=== PATIENT | female | born 1935 | race Caucasian/White ===

== ENCOUNTER → 2016-11-19 | Outpatient (REF) | payer MEDICARE ==
[~2016-11-19] MED LIST: ATEN50TA2 PO; CELE10TA PO; DEPA500T2 PO; FOSA70TA PO; MULTTAB4 PO; TYLE325T5 PO; VIMP150T PO; VITA500046 PO
== END ==
LOC: M LAB REF 15:46
PROVIDERS: ATTEND Nurse Practitioner Adult Health
DX: R19.7 Diarrhea, unspecified (principal)

== ENCOUNTER 2016-12-14 09:58 | Emergency (ER) | payer MEDICARE ==
[2016-12-14 11:57] LABS: BASO % 0.6 % (0.0-1.0); EOS # 0.2 K/mm3 (0.0-0.50); EOS % 3.7 % (0.0-3.0); LARGE UNSTAINED CELL # 0.1 K/mm3 (0.0-0.4); LARGE UNSTAINED CELL % 2.2 % (0.0-4.0); LYMPH % 33.9 % (24.0-44.0); MEAN CORPUSCULAR HEMOGLOBIN 31.7 pg (27.0-33.0); MEAN CORPUSCULAR HGB CONC 32.3 g/dl (32.0-36.5); MONO # 0.4 K/mm3 (0.0-0.8); NEUTROPHILS # 2.8 K/mm3 (1.8-7.7); NEUTROPHILS % 51.7 % (36.0-66.0); PLATELET COUNT, AUTOMATED 195 k/mm3 (150-450); RED CELL DISTRIBUTION WIDTH 12.5 % (11.5-14.5); WHITE BLOOD COUNT 5.4 K/mm3 (4.0-10.0)
[2016-12-14 12:11] LABS: CREATININE FOR GFR 1.06 MG/DL (0.55-1.02); GLOMERULAR FILTRATION RATE 52.7 (>32)
[2016-12-14 12:14] LABS: INR 1.01
[2016-12-14 12:22] LABS: MICROSCOPIC INDICATED? MAN YES (NO)
[2016-12-14 12:24] LABS: BACTERIA, URINE LARGE AMOUNT; HYALINE CAST, URINE NONE SEEN /lpf (0-1); MICROSCOPIC EXAM PERFORMED; RBC, URINE TNTC /hpf (0-3); SQUAMOUS EPITHELIAL CELL URINE NONE SEEN /hpf (SMALL AMT); WBC, URINE 30-40 /hpf (0-3)
--- NOTE | 2016-12-14 13:00 | REP ---
CT ABDOMEN AND PELVIS WITHOUT IV CONTRAST: CT abdomen and pelvis is performed. No oral or IV contrast is utilized. Visualized lung bases demonstrate interstitial fibrotic change. Liver, spleen, adrenals, pancreas, and kidneys are grossly unremarkable in appearance. Patient has had a cholecystectomy. There is no significant biliary dilatation identified. There are moderate atherosclerotic calcifications of the abdominal aorta without aneurysm. I see no adenopathy. I see no free air or free fluid. I see no bowel wall thickening. There is extensive sigmoid diverticulosis without evidence of acute diverticulitis. I see no pelvic mass. Urinary bladder is mildly distended and grossly unremarkable. There does appear to be a calculus in the distal end of the left ureter measuring 6 mm in diameter. There is no left hydroureteronephrosis. There is a small hiatal hernia. IMPRESSION: There is a 6 mm calculus in the distal end of the left ureter without significant left-sided hydroureteronephrosis. No other renal or ureteral stones are seen. Sigmoid diverticulosis without evidence of acute diverticulitis. Small hiatal hernia. Signed by Bob Gayle MD 12/14/2016 02:20 P
--- NOTE | 2016-12-14 14:16 | EDDOCDS ---
Nurse's Notes [facility] Name: Mariya Gomez Age: 81 yrs Sex: Female : 1935 Arrival Date: 12/14/2016 Time: 09:58 Bed I3 / M3 Private MD: Yannick Enamorado MD Diagnosis: Calculus in urethra-6 mm left Presentation: 12/14 10:09 Presenting complaint: Patient states: Pt presents with bright red blood in urine onset dls yesterday denies any abdominal or flank pain. Adult Sepsis Screening: The patient does not have new or worsening altered mentation. Patient's respiratory rate is less than 22. Systolic blood pressure is greater than 100. Patient has a qSOFA score of 0- Negative Sepsis Screen. Suicide/Homicide risk assessment- the patient denies having any suicidal and/or homicidal ideations and does not present with any other emotional, behavioral or mental health complaints. Status: Patient is not a environmental service aide or dependent. Transition of care: patient was not received from another setting of care. 10:09 Acuity: VI Level 3 dls 10:09 Method Of Arrival: Walkin/Carried/Asstd dls Triage Assessment: 10:12 General: Appears in no apparent distress, well developed, well nourished, well groomed, dls Behavior is cooperative. Pain: Denies pain. Historical: - Allergies: no known allergies; - Home Meds: 1. Drisdol 50,000 unit Oral cap 1 cap once wkly Wednesdays 2. Keppra 1,000 mg Oral tab 1 tab every 12 hours 3. Xanax 0.5 mg Oral tab 1 tab 3 times per day as needed - PMHx: Encephalitis; Hypertension; Seizures; kidney stones; compression fractures; - PSHx: Cholecystectomy; urinary stents; - Social history: Smoking status: Patient/guardian denies using No barriers to communication noted, The patient speaks fluent [place]ican. - Family history: Not pertinent. - : The pt / caregiver states he / she is not on anticoagulants. Home medication list is obtained from the patient. - Exposure Risk Screening:: None identified. Screenin:14 Screening information is obtained from the patient. Fall risk: No risks identified. dsf Assistance ADL's: requires no assistance with activities of daily living. Abuse/DV Screen: The patient / caregiver reports he/she is: not in a situation that causes fear, pain or injury. Nutritional screening: No deficits noted. Advance Directives: Currently, there is no health care proxy. home support is adequate. Assessment: 11:40 Adult Sepsis Screening: The patient does not have new or worsening altered mentation. dsf Patient's respiratory rate is less than 22. Systolic blood pressure is greater than 100. Patient has a qSOFA score of 0- Negative Sepsis Screen. General: Appears in no apparent distress, comfortable, Behavior is appropriate for age, cooperative. Pain: Denies pain. Neurological: Level of Consciousness is awake, alert, Oriented to person, place, time. Cardiovascular: Capillary refill < 3 seconds. Respiratory: Airway is patent Respiratory effort is even, unlabored, Respiratory pattern is regular, symmetrical. : Urine is maroon colored urine Denies burning with urination, urinary frequency, urgency. Derm: Skin is pink, warm & dry. 13:02 General: Appears in no apparent distress, comfortable, Behavior is appropriate for age, dsf cooperative. Pain: Denies pain. Neurological: Level of Consciousness is awake, alert. Cardiovascular: Capillary refill < 3 seconds. Respiratory: Airway is patent Respiratory effort is even, unlabored, Respiratory pattern is regular, symmetrical. Derm: Skin is pink, warm & dry. 14:14 Adult Sepsis Screening: The patient does not have new or worsening altered mentation. dsf Patient's respiratory rate is less than 22. Systolic blood pressure is greater than 100. Patient has a qSOFA score of 0- Negative Sepsis Screen. General: Appears in no apparent distress, comfortable, Behavior is appropriate for age, cooperative. Pain: Denies pain. Neurological: Level of Consciousness is awake, alert. Cardiovascular: Capillary refill < 3 seconds. Respiratory: Airway is patent Respiratory effort is even, unlabored, labored, Respiratory pattern is regular, symmetrical. Derm: Skin is pink, warm & dry. Vital Signs: 10:01 BP 106 / 60; Pulse 82; Resp 18; Temp 97.5(O); Pulse Ox 97% on R/A; Weight 70.31 kg (R); ct3 Height 5 ft. 3 in. (160.02 cm) (R); Pain 0/10; 14:14 BP 159 / 77; Pulse 78; Resp 18; Temp 96.3; Pulse Ox 97% ; Pain 0/10; jam1 10:01 Body Mass Index 27.46 (70.31 kg, 160.02 cm) ct3 Vitals: 10:01 Log In Time: December 14, 2016 at 09:58. ct3 ED Course: 10:00 Patient visited by Paula Lynn PCA. ct3 10:00 Yannick Enamorado is Private Physician. ct3 10:00 Patient moved to Waiting ct3 10:02 Patient moved to Pre RCE ct3 10:10 Triage Initiated dls 11:11 Patient moved to Triage 3 kcs 11:17 Ronnell Bacon PA-C is PHCP. cc10 11:18 Luisa Culp MD is Attending Physician. cc10 11:18 Patient visited by Ronnell Bacon PA-C. cc10 11:18 Patient visited by Ronnell Bacon PA-C. cc10 11:33 Ileana Schaefer,RN is Primary Nurse. kcs 11:33 Radha Rivera, JARON is Primary Nurse. kcs 11:33 Patient moved to I3 / M3 kcs 11:[address] dsf 11:47 Pt & Aptt Sent. dsf 11:47 Basic Metabolic Profile Sent. dsf 11:47 CBC with Diff Sent. dsf 11:47 Urine Culture Sent. dsf 11:47 Inserted saline lock: 20 gauge in left antecubital area The patient tolerated the dsf procedure well. 11:49 Patient visited by Maegan De La Cruz RN. dsf 11:55 Patient moved to I3 / M3 krp 12:26 [facility] Payment Agreement was scanned into [employer] and attached to record. lg 13:03 Patient visited by Maegan De La Cruz RN. dsf 13:17 CT ABD & PELVIS: No Contrast Returned. EDMS 14:08 Stephon Franklin is Referral Physician. cc10 14:13 Discontinued lock intact, bleeding controlled, pressure dressing applied, No dsf redness/swelling at site. 14:14 The patient / caregiver is instructed regarding the plan of care and ED course. dsf 14:14 No procedures done that require assistance. dsf Order Results: Lab Order: Basic Metabolic Profile; SPEC'M 12/14/16 11:43 Test: GLUCOSE, FASTING; Value: 93; Range: 83-110; Units: MG/DL; Status: F Test: BLOOD UREA NITROGEN; Value: 19; Range: 7-18; Abnormal: Above high normal; Units: MG/DL; Status: F Test: CREATININE FOR GFR; Value: 1.06; Range: 0.55-1.02; Abnormal: Above high normal; Units: MG/DL; Status: F Test: GLOMERULAR FILTRATION RATE; Value: 52.7; Range: >32; Status: F Test: SODIUM LEVEL; Value: 143; Range: 136-145; Units: MEQ/L; Status: F Test: POTASSIUM SERUM; Value: 4.0; Range: 3.5-5.1; Units: MEQ/L; Status: F Test: CHLORIDE LEVEL; Value: 106; Range: 98-107; Units: MEQ/L; Status: F Test: CARBON DIOXIDE LEVEL; Value: 24; Range: 21-32; Units: MEQ/L; Status: F Test: ANION GAP; Value: 13; Range: 8-16; Units: MEQ/L; Status: F Test: CALCIUM LEVEL; Value: 9.0; Range: 8.8-10.2; Units: MG/DL; Status: F Test Note: ; Units are mL/min/1.73 m2 Chronic Kidney Disease Staging per NKF: Stage I & II GFR >=60 Normal to Mildly Decreased Stage III GFR 30-59 Moderately Decreased Stage IV GFR 15-29 Severely Decreased Stage V GFR <15 Very Little GFR Left ESRD GFR <15 on HEADING MAKER Lab Order: CBC with Diff; SPEC'M 12/14/16 11:43 Test: WHITE BLOOD COUNT; Value: 5.4; Range: 4.0-10.0; Units: K/mm3; Status: F Test: RED BLOOD COUNT; Value: 4.13; Range: 4.00-5.40; Units: M/mm3; Status: F Test: HEMOGLOBIN; Value: 13.1; Range: 12.0-16.0; Units: g/dl; Status: F Test: HEMATOCRIT; Value: 40.4; Range: 36.0-47.0; Units: %; Status: F Test: MEAN CORPUSCULAR VOLUME; Value: 98.0; Range: 80.0-96.0; Abnormal: Above high normal; Units: fl; Status: F Test: MEAN CORPUSCULAR HEMOGLOBIN; Value: 31.7; Range: 27.0-33.0; Units: pg; Status: F Test: MEAN CORPUSCULAR HGB CONC; Value: 32.3; Range: 32.0-36.5; Units: g/dl; Status: F Test: RED CELL DISTRIBUTION WIDTH; Value: 12.5; Range: 11.5-14.5; Units: %; Status: F Test: PLATELET COUNT, AUTOMATED; Value: 195; Range: 150-450; Units: k/mm3; Status: F Test: NEUTROPHILS %; Value: 51.7; Range: 36.0-66.0; Units: %; Status: F Test: LYMPH %; Value: 33.9; Range: 24.0-44.0; Units: %; Status: F Test: MONO %; Value: 8.0; Range: 0.0-5.0; Abnormal: Above high normal; Units: %; Status: F Test: EOS %; Value: 3.7; Range: 0.0-3.0; Abnormal: Above high normal; Units: %; Status: F Test: BASO %; Value: 0.6; Range: 0.0-1.0; Units: %; Status: F Test: LARGE UNSTAINED CELL %; Value: 2.2; Range: 0.0-4.0; Units: %; Status: F Test: NEUTROPHILS #; Value: 2.8; Range: 1.8-7.7; Units: K/mm3; Status: F Test: LYMPH #; Value: 2.0; Range: 1.5-4.5; Units: K/mm3; Status: F Test: MONO #; Value: 0.4; Range: 0.0-0.8; Units: K/mm3; Status: F Test: EOS #; Value: 0.2; Range: 0.0-0.50; Units: K/mm3; Status: F Test: BASO #; Value: 0.0; Range: 0.0-0.2; Units: K/mm3; Status: F Test: LARGE UNSTAINED CELL #; Value: 0.1; Range: 0.0-0.4; Units: K/mm3; Status: F Lab Order: Pt & Aptt; SPEC'M 12/14/16 11:43 Test: PROTHROMBIN TIME; Value: 13.4; Range: 12.3-14.5; Units: SECONDS; Status: F Test: INR; Value: 1.01; Status: F Test: PARTIAL THROMBOPLASTIN TIME; Value: 26.4; Range: 26.6-37.1; Abnormal: Below low normal; Units: SECONDS; Status: F Test Note: ; THERAPUTIC HUMAN INR VALUES INDICATIONS NORMAL RANGES PROPHYLAXIS/TREATMENT OF: VENOUS THROMBOSIS 2.0-3.0 PULMONARY EMBOLISM 2.0-3.0 PREVENTION OF SYSTEMIC EMBOLISM FROM: TISSUE HEART VALVES 2.0-3.0 ACUTE MYOCARDIAL INFARCTION 2.0-3.0 VALVULAR HEART DISEASE 2.0-3.0 ATRIAL FIBRILLATION 2.0-3.0 MECHANICAL VALVES(HIGH RISK) 2.5-3.5 RECURRENT MYOCARDIAL INFARCTION 2.5-3.5 Lab Order: URINALYSIS MANUAL; SPEC'M 12/14/16 11:43 Test: APPEARANCE, URINE MANUAL; Value: TURBID; Range: CLEAR; Abnormal: Above high normal; Status: F Test: COLOR, URINE MANUAL; Value: RED; Range: YELLOW; Abnormal: Above high normal; Status: F Test: PH,URINE MAN; Value: 5.0; Range: 5.0 - 9.0; Units: UNITS; Status: F Test: SPECIFIC GRAVITY,URINE MANUAL; Value: 1.020; Range: 1.002-1.035; Status: F Test: PROTEIN, URINE MANUAL; Value: 2+; Range: NEGATIVE; Abnormal: Above high normal; Units: mg/dL; Status: F Test: GLUCOSE, URINE (UA) MANUAL; Value: NEGATIVE; Range: NEGATIVE; Units: mg/dL; Status: F Test: KETONE, URINE MANUAL; Value: NEGATIVE; Range: NEGATIVE; Units: mg/dL; Status: F Test: UROBILINOGEN, URINE MANUAL; Value: NORMAL; Range: NORMAL; Units: mg/dl; Status: F Test: BILIRUBIN, URINE MANUAL; Value: NEGATIVE; Range: NEGATIVE; Status: F Test: NITRITE, URINE MANUAL; Value: NEGATIVE; Range: NEGATIVE; Status: F Test: LEUKOCYTE ESTERASE, URINE MAN; Value: POSITIVE; Range: NEGATIVE; Abnormal: Above high normal; Status: F Test: BLOOD URINE MANUAL; Value: POSITIVE; Range: NEGATIVE; Abnormal: Above high normal; Status: F Lab Order: MICROSCOPIC, URINE; SPEC'M 12/14/16 11:43 Test: WBC, URINE; Value: 30-40; Range: 0-3; Abnormal: Above high normal; Units: /hpf; Status: F Test: RBC, URINE; Value: TNTC; Range: 0-3; Abnormal: Above high normal; Units: /hpf; Status: F Test: SQUAMOUS EPITHELIAL CELL URINE; Value: NONE SEEN; Range: SMALL AMT; Units: /hpf; Status: F Test: BACTERIA, URINE; Value: LARGE AMOUNT; Range: NONE; Abnormal: Above high normal; Status: F Test: HYALINE CAST, URINE; Value: NONE SEEN; Range: 0-1; Units: /lpf; Status: F Test: MICROSCOPIC EXAM; Value: PERFORMED; Status: F Radiology Order: CT ABD & PELVIS: No Contrast Test: CT ABD & PELVIS: No Contrast REASON FOR EXAMINATION: Renal colic; ; CT ABDOMEN AND PELVIS WITHOUT IV CONTRAST:; ; CT abdomen and pelvis is performed. No oral or IV contrast is utilized.; ; Visualized lung bases demonstrate interstitial fibrotic change. Liver, spleen,; adrenals, pancreas, and kidneys are grossly unremarkable in appearance. Patient; has had a cholecystectomy. There is no significant biliary dilatation identified.; There are moderate atherosclerotic calcifications of the abdominal aorta without; aneurysm. I see no adenopathy. I see no free air or free fluid. I see no bowel; wall thickening. There is extensive sigmoid diverticulosis without evidence of; acute diverticulitis. I see no pelvic mass. Urinary bladder is mildly distended; and grossly unremarkable. There does appear to be a calculus in the distal end of; the left ureter measuring 6 mm in diameter. There is no left; hydroureteronephrosis. There is a small hiatal hernia.; ; IMPRESSION:; There is a 6 mm calculus in the distal end of the left ureter without significant; left-sided hydroureteronephrosis. No other renal or ureteral stones are seen.; Sigmoid diverticulosis without evidence of acute diverticulitis. Small hiatal; hernia.; ; ; ; Unreviewed; Outcome: 14:08 Discharge ordered by Provider. cc10 14:14 Discharge Assessment: Patient awake, alert and oriented x 3. No cognitive and/or dsf functional deficits noted. Patient verbalized understanding of disposition instructions. patient administered narcotics - no. The following High Risk Discharge criteria are identified: None. Discharged to home ambulatory. Condition: stable. Discharge instructions given to patient, Instructed on discharge instructions, follow up and referral plans. medication usage, Demonstrated understanding of instructions, medications, Pt was receptive of discharge instructions/ teaching. Prescriptions given X 2. CT Study completed. Property sent home with patient. 14:15 Patient left the ED. dsf Signatures: Dispatcher [employer] EDMS Heide Soares RN RN Leyla Ross RN RN Merlyn Cook, SENIOR INVESTIGATOR SENIOR INVESTIGATOR jam1 Jim Olguin krp Adonay Mckenzie, Reg Reg lg Lynn, Paula, SENIOR INVESTIGATOR SENIOR INVESTIGATOR ct3 Maegan De La Cruz RN RN dsf Ronnell Bacon, PA-C PA-C cc10 Corrections: (The following items were deleted from the chart) 12:21 11:47 URINALYSIS+LAB sent. [facility] EDMS MTDD
--- NOTE | 2016-12-14 14:16 | EDDOCDS ---
Physician Documentation [facility] Name: Mariya Gomez Age: 81 yrs Sex: Female : 1935 Arrival Date: 12/14/2016 Time: 09:58 Bed I3 / M3 Private MD: Yannick Enamorado MD Disposition: 12/14/16 14:08 Discharged to Home/Self Care. Impression: Calculus in urethra - 6 mm left. - Condition is Stable. - Discharge Instructions: Kidney Stones. - Prescriptions for Cipro 500 mg Oral Tablet - take 1 tablet by ORAL route every 12 hours; 14 tablet. Flomax 0.4 mg Oral Capsule, Sust. Release 24 hr - take 1 capsule by ORAL route once daily 1/2 hour following the same meal each day; 30 capsule. - Medication Reconciliation form. - Follow up: Stephon Franklin; When: 2 - 3 days; Reason: Wound/Symptom Recheck, Recheck today's complaints, Worsening of conditions, Continuance of care. - Problem is new. - Symptoms have improved. Historical: - Allergies: no known allergies; - Home Meds: 1. Drisdol 50,000 unit Oral cap 1 cap once wkly Wednesdays 2. Keppra 1,000 mg Oral tab 1 tab every 12 hours 3. Xanax 0.5 mg Oral tab 1 tab 3 times per day as needed - PMHx: Encephalitis; Hypertension; Seizures; kidney stones; compression fractures; - PSHx: Cholecystectomy; urinary stents; - Social history: Smoking status: Patient/guardian denies using No barriers to communication noted, The patient speaks fluent American. - Family history: Not pertinent. - : The pt / caregiver states he / she is not on anticoagulants. Home medication list is obtained from the patient. - Exposure Risk Screening:: None identified. Vital Signs: 12/14 10:01 BP 106 / 60; Pulse 82; Resp 18; Temp 97.5(O); Pulse Ox 97% on R/A; Weight 70.31 kg / ct3 155.01 lbs (R); Height 5 ft. 3 in. (160.02 cm) (R); Pain 0/10; 14:14 BP 159 / 77; Pulse 78; Resp 18; Temp 96.3; Pulse Ox 97% ; Pain 0/10; jam1 10:01 Body Mass Index 27.46 (70.31 kg, 160.02 cm) ct3 MDM: 11:27 IV Saline Lock ordered. cc10 11:27 Undress patient appropriately for examination ordered. cc10 11:28 CT ABD & PELVIS: No Contrast Ordered. EDMS 11:29 Basic Metabolic Profile Ordered. EDMS 11:29 CBC with Diff Ordered. EDMS 11:29 Pt & Aptt Ordered. EDMS 11:29 Urine Culture Ordered. EDMS 11:45 Financial registration complete. lg 12:22 URINALYSIS MANUAL Ordered. EDMS 12:23 MICROSCOPIC, URINE Ordered. EDMS 12:26 [facility] Payment Agreement was scanned into [employer] and attached to record. lg 12:56 Basic Metabolic Profile Reviewed. cc10 12:56 CBC with Diff Reviewed. cc10 12:56 Pt & Aptt Reviewed. cc10 12:56 URINALYSIS MANUAL Reviewed. cc10 12:56 MICROSCOPIC, URINE Reviewed. cc10 14:07 Misc. Nursing Order ordered. cc10 Signatures: Dispatcher [employer] EDVA Leyla Marcus, RN RN dls Adonay Mckenzie, Reg Reg lg Maegan De La Cruz,RN RN dsRonnell Rashid, PA-C PA-C cc10 The chart was reviewed and I authenticate all verbal orders and agree with the evaluation and treatment provided.Corrections: (The following items were deleted from the chart) 12:21 11:29 URINALYSIS+LAB ordered. EDVA EDMS Attachments: 12:26 [facility] Payment Agreement lg MTDD
--- NOTE | 2016-12-16 15:17 | EDDOCDS ---
Physician Documentation [facility] Name: Mariya Gomez Age: 81 yrs Sex: Female : 1935 Arrival Date: 12/14/2016 Time: 09:58 Bed I3 / M3 Private MD: Yannick Enamorado MD Disposition: 12/14/16 14:08 Discharged to Home/Self Care. Impression: Calculus in urethra - 6 mm left. - Condition is Stable. - Discharge Instructions: Kidney Stones. - Prescriptions for Cipro 500 mg Oral Tablet - take 1 tablet by ORAL route every 12 hours; 14 tablet. Flomax 0.4 mg Oral Capsule, Sust. Release 24 hr - take 1 capsule by ORAL route once daily 1/2 hour following the same meal each day; 30 capsule. - Medication Reconciliation form. - Follow up: Stephon Franklin; When: 2 - 3 days; Reason: Wound/Symptom Recheck, Recheck today's complaints, Worsening of conditions, Continuance of care. - Problem is new. - Symptoms have improved. Historical: - Allergies: no known allergies; - Home Meds: 1. Drisdol 50,000 unit Oral cap 1 cap once wkly Wednesdays 2. Keppra 1,000 mg Oral tab 1 tab every 12 hours 3. Xanax 0.5 mg Oral tab 1 tab 3 times per day as needed - PMHx: Encephalitis; Hypertension; Seizures; kidney stones; compression fractures; - PSHx: Cholecystectomy; urinary stents; - Social history: Smoking status: Patient/guardian denies using No barriers to communication noted, The patient speaks fluent Tanzanian. - Family history: Not pertinent. - : The pt / caregiver states he / she is not on anticoagulants. Home medication list is obtained from the patient. - Exposure Risk Screening:: None identified. Vital Signs: 12/14 10:01 BP 106 / 60; Pulse 82; Resp 18; Temp 97.5(O); Pulse Ox 97% on R/A; Weight 70.31 kg / ct3 155.01 lbs (R); Height 5 ft. 3 in. (160.02 cm) (R); Pain 0/10; 14:14 BP 159 / 77; Pulse 78; Resp 18; Temp 96.3; Pulse Ox 97% ; Pain 0/10; jam1 10:01 Body Mass Index 27.46 (70.31 kg, 160.02 cm) ct3 MDM: 11:27 IV Saline Lock ordered. cc10 11:27 Undress patient appropriately for examination ordered. cc10 11:28 CT ABD & PELVIS: No Contrast Ordered. EDMS 11:29 Basic Metabolic Profile Ordered. EDMS 11:29 CBC with Diff Ordered. EDMS 11:29 Pt & Aptt Ordered. EDMS 11:29 Urine Culture Ordered. EDMS 11:45 Financial registration complete. lg 12:22 URINALYSIS MANUAL Ordered. EDMS 12:23 MICROSCOPIC, URINE Ordered. EDMS 12:26 [facility] [place] Payment Agreement was scanned into [employer] and attached to record. lg 12:56 Basic Metabolic Profile Reviewed. cc10 12:56 CBC with Diff Reviewed. cc10 12:56 Pt & Aptt Reviewed. cc10 12:56 URINALYSIS MANUAL Reviewed. cc10 12:56 MICROSCOPIC, URINE Reviewed. cc10 14:07 Misc. Nursing Order ordered. cc10 12/15 12:27 T-Sheet-- Draft Copy was scanned into [employer] and attached to record. gb Signatures: Dispatcher [employer] Leyla Trevino, RN RN dls Delilah Johnson, Reg Reg gb Adonay Mckenzie, Reg Reg lg Maegan De La Cruz,RN Ronnell Duarte, PALeonie PAVikkiC cc10 The chart was reviewed and I authenticate all verbal orders and agree with the evaluation and treatment provided.Corrections: (The following items were deleted from the chart) 12/14 12:21 11:29 URINALYSIS+LAB ordered. EDOR EDMS Attachments: 12:26 [facility] [place] Payment Agreement lg 12/15 12:27 T-Sheet-- Draft Copy gb Chart Complete MTDD
--- NOTE | 2016-12-16 15:17 | EDDOCDS ---
Nurse's Notes [facility] Name: Mariya Gomez Age: 81 yrs Sex: Female : 1935 Arrival Date: 12/14/2016 Time: 09:58 Bed I3 / M3 Private MD: Yannick Enamorado MD Diagnosis: Calculus in urethra-6 mm left Presentation: 12/14 10:09 Presenting complaint: Patient states: Pt presents with bright red blood in urine onset dls yesterday denies any abdominal or flank pain. Adult Sepsis Screening: The patient does not have new or worsening altered mentation. Patient's respiratory rate is less than 22. Systolic blood pressure is greater than 100. Patient has a qSOFA score of 0- Negative Sepsis Screen. Suicide/Homicide risk assessment- the patient denies having any suicidal and/or homicidal ideations and does not present with any other emotional, behavioral or mental health complaints. Status: Patient is not a director of social services or dependent. Transition of care: patient was not received from another setting of care. 10:09 Acuity: VI Level 3 dls 10:09 Method Of Arrival: Walkin/Carried/Asstd dls Triage Assessment: 10:12 General: Appears in no apparent distress, well developed, well nourished, well groomed, dls Behavior is cooperative. Pain: Denies pain. Historical: - Allergies: no known allergies; - Home Meds: 1. Drisdol 50,000 unit Oral cap 1 cap once wkly Wednesdays 2. Keppra 1,000 mg Oral tab 1 tab every 12 hours 3. Xanax 0.5 mg Oral tab 1 tab 3 times per day as needed - PMHx: Encephalitis; Hypertension; Seizures; kidney stones; compression fractures; - PSHx: Cholecystectomy; urinary stents; - Social history: Smoking status: Patient/guardian denies using No barriers to communication noted, The patient speaks fluent Montserratian. - Family history: Not pertinent. - : The pt / caregiver states he / she is not on anticoagulants. Home medication list is obtained from the patient. - Exposure Risk Screening:: None identified. Screenin:14 Screening information is obtained from the patient. Fall risk: No risks identified. dsf Assistance ADL's: requires no assistance with activities of daily living. Abuse/DV Screen: The patient / caregiver reports he/she is: not in a situation that causes fear, pain or injury. Nutritional screening: No deficits noted. Advance Directives: Currently, there is no health care proxy. home support is adequate. Assessment: 11:40 Adult Sepsis Screening: The patient does not have new or worsening altered mentation. dsf Patient's respiratory rate is less than 22. Systolic blood pressure is greater than 100. Patient has a qSOFA score of 0- Negative Sepsis Screen. General: Appears in no apparent distress, comfortable, Behavior is appropriate for age, cooperative. Pain: Denies pain. Neurological: Level of Consciousness is awake, alert, Oriented to person, place, time. Cardiovascular: Capillary refill < 3 seconds. Respiratory: Airway is patent Respiratory effort is even, unlabored, Respiratory pattern is regular, symmetrical. : Urine is maroon colored urine Denies burning with urination, urinary frequency, urgency. Derm: Skin is pink, warm & dry. 13:02 General: Appears in no apparent distress, comfortable, Behavior is appropriate for age, dsf cooperative. Pain: Denies pain. Neurological: Level of Consciousness is awake, alert. Cardiovascular: Capillary refill < 3 seconds. Respiratory: Airway is patent Respiratory effort is even, unlabored, Respiratory pattern is regular, symmetrical. Derm: Skin is pink, warm & dry. 14:14 Adult Sepsis Screening: The patient does not have new or worsening altered mentation. dsf Patient's respiratory rate is less than 22. Systolic blood pressure is greater than 100. Patient has a qSOFA score of 0- Negative Sepsis Screen. General: Appears in no apparent distress, comfortable, Behavior is appropriate for age, cooperative. Pain: Denies pain. Neurological: Level of Consciousness is awake, alert. Cardiovascular: Capillary refill < 3 seconds. Respiratory: Airway is patent Respiratory effort is even, unlabored, labored, Respiratory pattern is regular, symmetrical. Derm: Skin is pink, warm & dry. Vital Signs: 10:01 BP 106 / 60; Pulse 82; Resp 18; Temp 97.5(O); Pulse Ox 97% on R/A; Weight 70.31 kg (R); ct3 Height 5 ft. 3 in. (160.02 cm) (R); Pain 0/10; 14:14 BP 159 / 77; Pulse 78; Resp 18; Temp 96.3; Pulse Ox 97% ; Pain 0/10; jam1 10:01 Body Mass Index 27.46 (70.31 kg, 160.02 cm) ct3 Vitals: 10:01 Log In Time: December 14, 2016 at 09:58. ct3 ED Course: 10:00 Patient visited by Paula Lynn PCA. ct3 10:00 Yannick Enamorado is Private Physician. ct3 10:00 Patient moved to Waiting ct3 10:02 Patient moved to Pre RCE ct3 10:10 Triage Initiated dls 11:11 Patient moved to Triage 3 kcs 11:17 Ronnell Bacon PA-C is PHCP. cc10 11:18 Luisa Culp MD is Attending Physician. cc10 11:18 Patient visited by Ronnell Bacon PA-C. cc10 11:18 Patient visited by Ronnell Bacon PA-C. cc10 11:33 Ileana Schaefer,RN is Primary Nurse. kcs 11:33 Radha Rivera, RN is Primary Nurse. kcs 11:33 Patient moved to I3 / M3 kcs 11:[address] dsf 11:47 Pt & Aptt Sent. dsf 11:47 Basic Metabolic Profile Sent. dsf 11:47 CBC with Diff Sent. dsf 11:47 Urine Culture Sent. dsf 11:47 Inserted saline lock: 20 gauge in left antecubital area The patient tolerated the dsf procedure well. 11:49 Patient visited by Maegan De La Cruz,JARON. dsf 11:55 Patient moved to I3 / M3 krp 12:26 [facility] Payment Agreement was scanned into [employer] and attached to record. lg 13:03 Patient visited by Maegan De La Cruz RN. dsf 13:17 CT ABD & PELVIS: No Contrast Returned. EDMS 14:08 Stephon Franklin is Referral Physician. cc10 14:13 Discontinued lock intact, bleeding controlled, pressure dressing applied, No dsf redness/swelling at site. 14:14 The patient / caregiver is instructed regarding the plan of care and ED course. dsf 14:14 No procedures done that require assistance. dsf 12/15 12:27 T-Sheet-- Draft Copy was scanned into [employer] and attached to record. gb Order Results: Lab Order: Basic Metabolic Profile; SPEC'M 12/14/16 11:43 Test: GLUCOSE, FASTING; Value: 93; Range: 83-110; Units: MG/DL; Status: F Test: BLOOD UREA NITROGEN; Value: 19; Range: 7-18; Abnormal: Above high normal; Units: MG/DL; Status: F Test: CREATININE FOR GFR; Value: 1.06; Range: 0.55-1.02; Abnormal: Above high normal; Units: MG/DL; Status: F Test: GLOMERULAR FILTRATION RATE; Value: 52.7; Range: >32; Status: F Test: SODIUM LEVEL; Value: 143; Range: 136-145; Units: MEQ/L; Status: F Test: POTASSIUM SERUM; Value: 4.0; Range: 3.5-5.1; Units: MEQ/L; Status: F Test: CHLORIDE LEVEL; Value: 106; Range: 98-107; Units: MEQ/L; Status: F Test: CARBON DIOXIDE LEVEL; Value: 24; Range: 21-32; Units: MEQ/L; Status: F Test: ANION GAP; Value: 13; Range: 8-16; Units: MEQ/L; Status: F Test: CALCIUM LEVEL; Value: 9.0; Range: 8.8-10.2; Units: MG/DL; Status: F Test Note: ; Units are mL/min/1.73 m2 Chronic Kidney Disease Staging per NKF: Stage I & II GFR >=60 Normal to Mildly Decreased Stage III GFR 30-59 Moderately Decreased Stage IV GFR 15-29 Severely Decreased Stage V GFR <15 Very Little GFR Left ESRD GFR <15 on PRODUCTION CONTROL SCHEDULER Lab Order: CBC with Diff; SPEC'M 12/14/16 11:43 Test: WHITE BLOOD COUNT; Value: 5.4; Range: 4.0-10.0; Units: K/mm3; Status: F Test: RED BLOOD COUNT; Value: 4.13; Range: 4.00-5.40; Units: M/mm3; Status: F Test: HEMOGLOBIN; Value: 13.1; Range: 12.0-16.0; Units: g/dl; Status: F Test: HEMATOCRIT; Value: 40.4; Range: 36.0-47.0; Units: %; Status: F Test: MEAN CORPUSCULAR VOLUME; Value: 98.0; Range: 80.0-96.0; Abnormal: Above high normal; Units: fl; Status: F Test: MEAN CORPUSCULAR HEMOGLOBIN; Value: 31.7; Range: 27.0-33.0; Units: pg; Status: F Test: MEAN CORPUSCULAR HGB CONC; Value: 32.3; Range: 32.0-36.5; Units: g/dl; Status: F Test: RED CELL DISTRIBUTION WIDTH; Value: 12.5; Range: 11.5-14.5; Units: %; Status: F Test: PLATELET COUNT, AUTOMATED; Value: 195; Range: 150-450; Units: k/mm3; Status: F Test: NEUTROPHILS %; Value: 51.7; Range: 36.0-66.0; Units: %; Status: F Test: LYMPH %; Value: 33.9; Range: 24.0-44.0; Units: %; Status: F Test: MONO %; Value: 8.0; Range: 0.0-5.0; Abnormal: Above high normal; Units: %; Status: F Test: EOS %; Value: 3.7; Range: 0.0-3.0; Abnormal: Above high normal; Units: %; Status: F Test: BASO %; Value: 0.6; Range: 0.0-1.0; Units: %; Status: F Test: LARGE UNSTAINED CELL %; Value: 2.2; Range: 0.0-4.0; Units: %; Status: F Test: NEUTROPHILS #; Value: 2.8; Range: 1.8-7.7; Units: K/mm3; Status: F Test: LYMPH #; Value: 2.0; Range: 1.5-4.5; Units: K/mm3; Status: F Test: MONO #; Value: 0.4; Range: 0.0-0.8; Units: K/mm3; Status: F Test: EOS #; Value: 0.2; Range: 0.0-0.50; Units: K/mm3; Status: F Test: BASO #; Value: 0.0; Range: 0.0-0.2; Units: K/mm3; Status: F Test: LARGE UNSTAINED CELL #; Value: 0.1; Range: 0.0-0.4; Units: K/mm3; Status: F Lab Order: Urine Culture; SPEC'M 12/14/16 11:43 Test: URINE CULTURE; Value: <EXTERNAL COMMENT eCWMed> FULL REPORT IN LAB NOTES (eCW and Medent).; Status: F Test: URINE CULTURE; Value: ORGANISM 1: LACTOBACILLUS SPECIES; Status: F Test: URINE CULTURE; Value: LACTOBACILLUS SPECIES; Status: F Test: URINE CULTURE; Value: COLONY COUNT CFU/ml >100,000; Status: F Test: URINE CULTURE; Value: Lactobacillus sp line 1 Most Lactobacillus species recovered from clinical; Status: F Test: URINE CULTURE; Value: Lactobacillus sp line 2 specimens are rarely pathogenic. Penicillin or; Status: F Test: URINE CULTURE; Value: Lactobacillus sp line 3 ampicillin with or without gentamicin is recommended; Status: F Test: URINE CULTURE; Value: Lactobacillus sp line 4 for treatment. Clindamycin and erythromycin are; Status: F Test: URINE CULTURE; Value: Lactobacillus sp line 5 alternative treatments. Vancomycin resistance has been; Status: F Test: URINE CULTURE; Value: Lactobacillus sp line 6 reported.; Status: F Lab Order: Pt & Aptt; SPEC'M 12/14/16 11:43 Test: PROTHROMBIN TIME; Value: 13.4; Range: 12.3-14.5; Units: SECONDS; Status: F Test: INR; Value: 1.01; Status: F Test: PARTIAL THROMBOPLASTIN TIME; Value: 26.4; Range: 26.6-37.1; Abnormal: Below low normal; Units: SECONDS; Status: F Test Note: ; THERAPUTIC HUMAN INR VALUES INDICATIONS NORMAL RANGES PROPHYLAXIS/TREATMENT OF: VENOUS THROMBOSIS 2.0-3.0 PULMONARY EMBOLISM 2.0-3.0 PREVENTION OF SYSTEMIC EMBOLISM FROM: TISSUE HEART VALVES 2.0-3.0 ACUTE MYOCARDIAL INFARCTION 2.0-3.0 VALVULAR HEART DISEASE 2.0-3.0 ATRIAL FIBRILLATION 2.0-3.0 MECHANICAL VALVES(HIGH RISK) 2.5-3.5 RECURRENT MYOCARDIAL INFARCTION 2.5-3.5 Lab Order: URINALYSIS MANUAL; SPEC'M 12/14/16 11:43 Test: APPEARANCE, URINE MANUAL; Value: TURBID; Range: CLEAR; Abnormal: Above high normal; Status: F Test: COLOR, URINE MANUAL; Value: RED; Range: YELLOW; Abnormal: Above high normal; Status: F Test: PH,URINE MAN; Value: 5.0; Range: 5.0 - 9.0; Units: UNITS; Status: F Test: SPECIFIC GRAVITY,URINE MANUAL; Value: 1.020; Range: 1.002-1.035; Status: F Test: PROTEIN, URINE MANUAL; Value: 2+; Range: NEGATIVE; Abnormal: Above high normal; Units: mg/dL; Status: F Test: GLUCOSE, URINE (UA) MANUAL; Value: NEGATIVE; Range: NEGATIVE; Units: mg/dL; Status: F Test: KETONE, URINE MANUAL; Value: NEGATIVE; Range: NEGATIVE; Units: mg/dL; Status: F Test: UROBILINOGEN, URINE MANUAL; Value: NORMAL; Range: NORMAL; Units: mg/dl; Status: F Test: BILIRUBIN, URINE MANUAL; Value: NEGATIVE; Range: NEGATIVE; Status: F Test: NITRITE, URINE MANUAL; Value: NEGATIVE; Range: NEGATIVE; Status: F Test: LEUKOCYTE ESTERASE, URINE MAN; Value: POSITIVE; Range: NEGATIVE; Abnormal: Above high normal; Status: F Test: BLOOD URINE MANUAL; Value: POSITIVE; Range: NEGATIVE; Abnormal: Above high normal; Status: F Lab Order: MICROSCOPIC, URINE; SPEC'M 12/14/16 11:43 Test: WBC, URINE; Value: 30-40; Range: 0-3; Abnormal: Above high normal; Units: /hpf; Status: F Test: RBC, URINE; Value: TNTC; Range: 0-3; Abnormal: Above high normal; Units: /hpf; Status: F Test: SQUAMOUS EPITHELIAL CELL URINE; Value: NONE SEEN; Range: SMALL AMT; Units: /hpf; Status: F Test: BACTERIA, URINE; Value: LARGE AMOUNT; Range: NONE; Abnormal: Above high normal; Status: F Test: HYALINE CAST, URINE; Value: NONE SEEN; Range: 0-1; Units: /lpf; Status: F Test: MICROSCOPIC EXAM; Value: PERFORMED; Status: F Radiology Order: CT ABD & PELVIS: No Contrast Test: CT ABD & PELVIS: No Contrast REASON FOR EXAMINATION: Renal colic; CT ABDOMEN AND PELVIS WITHOUT IV CONTRAST:; ; CT abdomen and pelvis is performed. No oral or IV contrast is utilized.; ; Visualized lung bases demonstrate interstitial fibrotic change. Liver, spleen,; adrenals, pancreas, and kidneys are grossly unremarkable in appearance. Patient; has had a cholecystectomy. There is no significant biliary dilatation identified.; There are moderate atherosclerotic calcifications of the abdominal aorta without; aneurysm. I see no adenopathy. I see no free air or free fluid. I see no bowel; wall thickening. There is extensive sigmoid diverticulosis without evidence of; acute diverticulitis. I see no pelvic mass. Urinary bladder is mildly distended; and grossly unremarkable. There does appear to be a calculus in the distal end of; the left ureter measuring 6 mm in diameter. There is no left; hydroureteronephrosis. There is a small hiatal hernia.; ; IMPRESSION:; ; There is a 6 mm calculus in the distal end of the left ureter without significant; left-sided hydroureteronephrosis. No other renal or ureteral stones are seen.; Sigmoid diverticulosis without evidence of acute diverticulitis. Small hiatal; hernia.; ; ; Signed by; Bob Gayle MD 12/14/2016 02:20 P; Outcome: 12/14 14:08 Discharge ordered by Provider. cc10 14:14 Discharge Assessment: Patient awake, alert and oriented x 3. No cognitive and/or dsf functional deficits noted. Patient verbalized understanding of disposition instructions. patient administered narcotics - no. The following High Risk Discharge criteria are identified: None. Discharged to home ambulatory. Condition: stable. Discharge instructions given to patient, Instructed on discharge instructions, follow up and referral plans. medication usage, Demonstrated understanding of instructions, medications, Pt was receptive of discharge instructions/ teaching. Prescriptions given X 2. CT Study completed. Property sent home with patient. 14:15 Patient left the ED. f Signatures: Dispatcher [employer] EDMS Heide Soares RN RN kcs Scott, Debra, RN RN dls Murphy, Jane, BOOT MAKER BOOT MAKER jam1 Jim Olguin krDelilah Shetty, Reg Reg gb Ganter, LoriLee, Reg Reg lg Lynn, Paula, BOOT MAKER BOOT MAKER ct3 Maegan De La Cruz RN RN dsf Ronnell Bacon, PA-C PA-C cc10 Corrections: (The following items were deleted from the chart) 12:21 11:47 URINALYSIS+LAB sent. [facility] EDMS Chart Complete MTDD
--- NOTE | 2016-12-16 15:17 | EDDOCDS ---
Physician Documentation [facility] Name: Mariya Gomez Age: 81 yrs Sex: Female : 1935 Arrival Date: 12/14/2016 Time: 09:58 Bed I3 / M3 Private MD: Yannick Enamorado MD Disposition: 12/14/16 14:08 Discharged to Home/Self Care. Impression: Calculus in urethra - 6 mm left. - Condition is Stable. - Discharge Instructions: Kidney Stones. - Prescriptions for Cipro 500 mg Oral Tablet - take 1 tablet by ORAL route every 12 hours; 14 tablet. Flomax 0.4 mg Oral Capsule, Sust. Release 24 hr - take 1 capsule by ORAL route once daily 1/2 hour following the same meal each day; 30 capsule. - Medication Reconciliation form. - Follow up: Stephon Franklin; When: 2 - 3 days; Reason: Wound/Symptom Recheck, Recheck today's complaints, Worsening of conditions, Continuance of care. - Problem is new. - Symptoms have improved. Historical: - Allergies: no known allergies; - Home Meds: 1. Drisdol 50,000 unit Oral cap 1 cap once wkly Wednesdays 2. Keppra 1,000 mg Oral tab 1 tab every 12 hours 3. Xanax 0.5 mg Oral tab 1 tab 3 times per day as needed - PMHx: Encephalitis; Hypertension; Seizures; kidney stones; compression fractures; - PSHx: Cholecystectomy; urinary stents; - Social history: Smoking status: Patient/guardian denies using No barriers to communication noted, The patient speaks fluent [place]. - Family history: Not pertinent. - : The pt / caregiver states he / she is not on anticoagulants. Home medication list is obtained from the patient. - Exposure Risk Screening:: None identified. Vital Signs: 12/14 10:01 BP 106 / 60; Pulse 82; Resp 18; Temp 97.5(O); Pulse Ox 97% on R/A; Weight 70.31 kg / ct3 155.01 lbs (R); Height 5 ft. 3 in. (160.02 cm) (R); Pain 0/10; 14:14 BP 159 / 77; Pulse 78; Resp 18; Temp 96.3; Pulse Ox 97% ; Pain 0/10; jam1 10:01 Body Mass Index 27.46 (70.31 kg, 160.02 cm) ct3 MDM: 11:27 IV Saline Lock ordered. cc10 11:27 Undress patient appropriately for examination ordered. cc10 11:28 CT ABD & PELVIS: No Contrast Ordered. EDMS 11:29 Basic Metabolic Profile Ordered. EDMS 11:29 CBC with Diff Ordered. EDMS 11:29 Pt & Aptt Ordered. EDMS 11:29 Urine Culture Ordered. EDMS 11:45 Financial registration complete. lg 12:22 URINALYSIS MANUAL Ordered. EDMS 12:23 MICROSCOPIC, URINE Ordered. EDMS 12:26 [facility] [place] was scanned into [employer] and attached to record. lg 12:56 Basic Metabolic Profile Reviewed. cc10 12:56 CBC with Diff Reviewed. cc10 12:56 Pt & Aptt Reviewed. cc10 12:56 URINALYSIS MANUAL Reviewed. cc10 12:56 MICROSCOPIC, URINE Reviewed. cc10 14:07 Misc. Nursing Order ordered. cc10 12/15 12:27 T-Sheet-- Draft Copy was scanned into [employer] and attached to record. gb Signatures: Dispatcher [employer] Leyla Trevino, RN RN dls Delilah Johnson, Reg Reg gb Adonay Mckenzie, Reg Reg lg Maegan De La Cruz,RN Ronnell Duarte, PALeonie PAVikkiC cc10 The chart was reviewed and I authenticate all verbal orders and agree with the evaluation and treatment provided.Corrections: (The following items were deleted from the chart) 12/14 12:21 11:29 URINALYSIS+LAB ordered. EDAL EDMS Attachments: 12:26 [facility] [place] Agreement lg 12/15 12:27 T-Sheet-- Draft Copy gb Chart Complete MTDD
--- NOTE | 2016-12-18 17:32 | EDDOCDS ---
Physician Documentation [facility] Name: Mariya Gomez Age: 81 yrs Sex: Female : 1935 Arrival Date: 12/14/2016 Time: 09:58 Bed I3 / M3 Private MD: Yannick Enamorado MD Disposition: 12/14/16 14:08 Discharged to Home/Self Care. Impression: Calculus in urethra - 6 mm left. - Condition is Stable. - Discharge Instructions: Kidney Stones. - Prescriptions for Cipro 500 mg Oral Tablet - take 1 tablet by ORAL route every 12 hours; 14 tablet. Flomax 0.4 mg Oral Capsule, Sust. Release 24 hr - take 1 capsule by ORAL route once daily 1/2 hour following the same meal each day; 30 capsule. - Medication Reconciliation form. - Follow up: Stephon Franklin; When: 2 - 3 days; Reason: Wound/Symptom Recheck, Recheck today's complaints, Worsening of conditions, Continuance of care. - Problem is new. - Symptoms have improved. Historical: - Allergies: no known allergies; - Home Meds: 1. Drisdol 50,000 unit Oral cap 1 cap once wkly Wednesdays 2. Keppra 1,000 mg Oral tab 1 tab every 12 hours 3. Xanax 0.5 mg Oral tab 1 tab 3 times per day as needed - PMHx: Encephalitis; Hypertension; Seizures; kidney stones; compression fractures; - PSHx: Cholecystectomy; urinary stents; - Social history: Smoking status: Patient/guardian denies using No barriers to communication noted, The patient speaks fluent Italian. - Family history: Not pertinent. - : The pt / caregiver states he / she is not on anticoagulants. Home medication list is obtained from the patient. - Exposure Risk Screening:: None identified. Vital Signs: 12/14 10:01 BP 106 / 60; Pulse 82; Resp 18; Temp 97.5(O); Pulse Ox 97% on R/A; Weight 70.31 kg / ct3 155.01 lbs (R); Height 5 ft. 3 in. (160.02 cm) (R); Pain 0/10; 14:14 BP 159 / 77; Pulse 78; Resp 18; Temp 96.3; Pulse Ox 97% ; Pain 0/10; jam1 10:01 Body Mass Index 27.46 (70.31 kg, 160.02 cm) ct3 MDM: 11:27 IV Saline Lock ordered. cc10 11:27 Undress patient appropriately for examination ordered. cc10 11:28 CT ABD & PELVIS: No Contrast Ordered. EDMS 11:29 Basic Metabolic Profile Ordered. EDMS 11:29 CBC with Diff Ordered. EDMS 11:29 Pt & Aptt Ordered. EDMS 11:29 Urine Culture Ordered. EDMS 11:45 Financial registration complete. lg 12:22 URINALYSIS MANUAL Ordered. EDMS 12:23 MICROSCOPIC, URINE Ordered. EDMS 12:26 [facility] Payment Agreement was scanned into [employer] and attached to record. lg 12:56 Basic Metabolic Profile Reviewed. cc10 12:56 CBC with Diff Reviewed. cc10 12:56 Pt & Aptt Reviewed. cc10 12:56 URINALYSIS MANUAL Reviewed. cc10 12:56 MICROSCOPIC, URINE Reviewed. cc10 14:07 Misc. Nursing Order ordered. cc10 12/15 12:27 T-Sheet-- Draft Copy was scanned into [employer] and attached to record. gb Signatures: Dispatcher [employer] Leyla Trevino, RN RN dls Delilah Johnson, Reg Reg gb Adonay Mckenzie, Reg Reg lg Maegan De La Cruz,RN Ronnell Duarte, PALeonie PAVikkiC cc10 The chart was reviewed and I authenticate all verbal orders and agree with the evaluation and treatment provided.Corrections: (The following items were deleted from the chart) 12/14 12:21 11:29 URINALYSIS+LAB ordered. EDVT EDMS Attachments: 12:26 [facility] Payment Agreement lg 12/15 12:27 T-Sheet-- Draft Copy gb Chart Complete MTDD
--- NOTE | 2016-12-18 17:32 | EDDOCDS ---
Physician Documentation [facility] Name: Mariya Gomez Age: 81 yrs Sex: Female : 1935 Arrival Date: 12/14/2016 Time: 09:58 Bed I3 / M3 Private MD: Yannick Enamorado MD Disposition: 12/14/16 14:08 Discharged to Home/Self Care. Impression: Calculus in urethra - 6 mm left. - Condition is Stable. - Discharge Instructions: Kidney Stones. - Prescriptions for Cipro 500 mg Oral Tablet - take 1 tablet by ORAL route every 12 hours; 14 tablet. Flomax 0.4 mg Oral Capsule, Sust. Release 24 hr - take 1 capsule by ORAL route once daily 1/2 hour following the same meal each day; 30 capsule. - Medication Reconciliation form. - Follow up: Stephon Franklin; When: 2 - 3 days; Reason: Wound/Symptom Recheck, Recheck today's complaints, Worsening of conditions, Continuance of care. - Problem is new. - Symptoms have improved. Historical: - Allergies: no known allergies; - Home Meds: 1. Drisdol 50,000 unit Oral cap 1 cap once wkly Wednesdays 2. Keppra 1,000 mg Oral tab 1 tab every 12 hours 3. Xanax 0.5 mg Oral tab 1 tab 3 times per day as needed - PMHx: Encephalitis; Hypertension; Seizures; kidney stones; compression fractures; - PSHx: Cholecystectomy; urinary stents; - Social history: Smoking status: Patient/guardian denies using No barriers to communication noted, The patient speaks fluent Niuean. - Family history: Not pertinent. - : The pt / caregiver states he / she is not on anticoagulants. Home medication list is obtained from the patient. - Exposure Risk Screening:: None identified. Vital Signs: 12/14 10:01 BP 106 / 60; Pulse 82; Resp 18; Temp 97.5(O); Pulse Ox 97% on R/A; Weight 70.31 kg / ct3 155.01 lbs (R); Height 5 ft. 3 in. (160.02 cm) (R); Pain 0/10; 14:14 BP 159 / 77; Pulse 78; Resp 18; Temp 96.3; Pulse Ox 97% ; Pain 0/10; jam1 10:01 Body Mass Index 27.46 (70.31 kg, 160.02 cm) ct3 MDM: 11:27 IV Saline Lock ordered. cc10 11:27 Undress patient appropriately for examination ordered. cc10 11:28 CT ABD & PELVIS: No Contrast Ordered. EDMS 11:29 Basic Metabolic Profile Ordered. EDMS 11:29 CBC with Diff Ordered. EDMS 11:29 Pt & Aptt Ordered. EDMS 11:29 Urine Culture Ordered. EDMS 11:45 Financial registration complete. lg 12:22 URINALYSIS MANUAL Ordered. EDMS 12:23 MICROSCOPIC, URINE Ordered. EDMS 12:26 [facility] Payment Agreement was scanned into [employer] and attached to record. lg 12:56 Basic Metabolic Profile Reviewed. cc10 12:56 CBC with Diff Reviewed. cc10 12:56 Pt & Aptt Reviewed. cc10 12:56 URINALYSIS MANUAL Reviewed. cc10 12:56 MICROSCOPIC, URINE Reviewed. cc10 14:07 Misc. Nursing Order ordered. cc10 12/15 12:27 T-Sheet-- Draft Copy was scanned into [employer] and attached to record. gb Signatures: Dispatcher [employer] Leyla Trevino, RN RN dls Delilah Johnson, Reg Reg gb Adonay Mckenzie, Reg Reg lg Maegan De La Cruz,RN Ronnell Duarte, PALeonie PAVikkiC cc10 The chart was reviewed and I authenticate all verbal orders and agree with the evaluation and treatment provided.Corrections: (The following items were deleted from the chart) 12/14 12:21 11:29 URINALYSIS+LAB ordered. EDVA EDMS Attachments: 12:26 [facility] Payment Agreement lg 12/15 12:27 T-Sheet-- Draft Copy gb Chart Complete MTDD
--- NOTE | 2016-12-18 17:32 | EDDOCDS ---
Nurse's Notes [facility] Name: Mariya Gomez Age: 81 yrs Sex: Female : 1935 Arrival Date: 12/14/2016 Time: 09:58 Bed I3 / M3 Private MD: Yannick Enamorado MD Diagnosis: Calculus in urethra-6 mm left Presentation: 12/14 10:09 Presenting complaint: Patient states: Pt presents with bright red blood in urine onset dls yesterday denies any abdominal or flank pain. Adult Sepsis Screening: The patient does not have new or worsening altered mentation. Patient's respiratory rate is less than 22. Systolic blood pressure is greater than 100. Patient has a qSOFA score of 0- Negative Sepsis Screen. Suicide/Homicide risk assessment- the patient denies having any suicidal and/or homicidal ideations and does not present with any other emotional, behavioral or mental health complaints. Status: Patient is not a policy service coordinator or dependent. Transition of care: patient was not received from another setting of care. 10:09 Acuity: VI Level 3 dls 10:09 Method Of Arrival: Walkin/Carried/Asstd dls Triage Assessment: 10:12 General: Appears in no apparent distress, well developed, well nourished, well groomed, dls Behavior is cooperative. Pain: Denies pain. Historical: - Allergies: no known allergies; - Home Meds: 1. Drisdol 50,000 unit Oral cap 1 cap once wkly Wednesdays 2. Keppra 1,000 mg Oral tab 1 tab every 12 hours 3. Xanax 0.5 mg Oral tab 1 tab 3 times per day as needed - PMHx: Encephalitis; Hypertension; Seizures; kidney stones; compression fractures; - PSHx: Cholecystectomy; urinary stents; - Social history: Smoking status: Patient/guardian denies using No barriers to communication noted, The patient speaks fluent Burundian. - Family history: Not pertinent. - : The pt / caregiver states he / she is not on anticoagulants. Home medication list is obtained from the patient. - Exposure Risk Screening:: None identified. Screenin:14 Screening information is obtained from the patient. Fall risk: No risks identified. dsf Assistance ADL's: requires no assistance with activities of daily living. Abuse/DV Screen: The patient / caregiver reports he/she is: not in a situation that causes fear, pain or injury. Nutritional screening: No deficits noted. Advance Directives: Currently, there is no health care proxy. home support is adequate. Assessment: 11:40 Adult Sepsis Screening: The patient does not have new or worsening altered mentation. dsf Patient's respiratory rate is less than 22. Systolic blood pressure is greater than 100. Patient has a qSOFA score of 0- Negative Sepsis Screen. General: Appears in no apparent distress, comfortable, Behavior is appropriate for age, cooperative. Pain: Denies pain. Neurological: Level of Consciousness is awake, alert, Oriented to person, place, time. Cardiovascular: Capillary refill < 3 seconds. Respiratory: Airway is patent Respiratory effort is even, unlabored, Respiratory pattern is regular, symmetrical. : Urine is maroon colored urine Denies burning with urination, urinary frequency, urgency. Derm: Skin is pink, warm & dry. 13:02 General: Appears in no apparent distress, comfortable, Behavior is appropriate for age, dsf cooperative. Pain: Denies pain. Neurological: Level of Consciousness is awake, alert. Cardiovascular: Capillary refill < 3 seconds. Respiratory: Airway is patent Respiratory effort is even, unlabored, Respiratory pattern is regular, symmetrical. Derm: Skin is pink, warm & dry. 14:14 Adult Sepsis Screening: The patient does not have new or worsening altered mentation. dsf Patient's respiratory rate is less than 22. Systolic blood pressure is greater than 100. Patient has a qSOFA score of 0- Negative Sepsis Screen. General: Appears in no apparent distress, comfortable, Behavior is appropriate for age, cooperative. Pain: Denies pain. Neurological: Level of Consciousness is awake, alert. Cardiovascular: Capillary refill < 3 seconds. Respiratory: Airway is patent Respiratory effort is even, unlabored, labored, Respiratory pattern is regular, symmetrical. Derm: Skin is pink, warm & dry. Vital Signs: 10:01 BP 106 / 60; Pulse 82; Resp 18; Temp 97.5(O); Pulse Ox 97% on R/A; Weight 70.31 kg (R); ct3 Height 5 ft. 3 in. (160.02 cm) (R); Pain 0/10; 14:14 BP 159 / 77; Pulse 78; Resp 18; Temp 96.3; Pulse Ox 97% ; Pain 0/10; jam1 10:01 Body Mass Index 27.46 (70.31 kg, 160.02 cm) ct3 Vitals: 10:01 Log In Time: December 14, 2016 at 09:58. ct3 ED Course: 10:00 Patient visited by Paula Lynn PCA. ct3 10:00 Yannick Enamorado is Private Physician. ct3 10:00 Patient moved to Waiting ct3 10:02 Patient moved to Pre RCE ct3 10:10 Triage Initiated dls 11:11 Patient moved to Triage 3 kcs 11:17 Ronnell Bacon PA-C is PHCP. cc10 11:18 Luisa Culp MD is Attending Physician. cc10 11:18 Patient visited by Ronnell Bacon PA-C. cc10 11:18 Patient visited by Ronnell Bacon PA-C. cc10 11:33 Ileana Schaefer,RN is Primary Nurse. kcs 11:33 Radha Rivera, RN is Primary Nurse. kcs 11:33 Patient moved to I3 / M3 kcs 11:[address] dsf 11:47 Pt & Aptt Sent. dsf 11:47 Basic Metabolic Profile Sent. dsf 11:47 CBC with Diff Sent. dsf 11:47 Urine Culture Sent. dsf 11:47 Inserted saline lock: 20 gauge in left antecubital area The patient tolerated the dsf procedure well. 11:49 Patient visited by Maegan De La Cruz,JARON. dsf 11:55 Patient moved to I3 / M3 krp 12:26 [facility] Payment Agreement was scanned into [employer] and attached to record. lg 13:03 Patient visited by Maegan De La Cruz RN. dsf 13:17 CT ABD & PELVIS: No Contrast Returned. EDMS 14:08 Stephon Franklin is Referral Physician. cc10 14:13 Discontinued lock intact, bleeding controlled, pressure dressing applied, No dsf redness/swelling at site. 14:14 The patient / caregiver is instructed regarding the plan of care and ED course. dsf 14:14 No procedures done that require assistance. dsf 12/15 12:27 T-Sheet-- Draft Copy was scanned into [employer] and attached to record. gb Order Results: Lab Order: Basic Metabolic Profile; SPEC'M 12/14/16 11:43 Test: GLUCOSE, FASTING; Value: 93; Range: 83-110; Units: MG/DL; Status: F Test: BLOOD UREA NITROGEN; Value: 19; Range: 7-18; Abnormal: Above high normal; Units: MG/DL; Status: F Test: CREATININE FOR GFR; Value: 1.06; Range: 0.55-1.02; Abnormal: Above high normal; Units: MG/DL; Status: F Test: GLOMERULAR FILTRATION RATE; Value: 52.7; Range: >32; Status: F Test: SODIUM LEVEL; Value: 143; Range: 136-145; Units: MEQ/L; Status: F Test: POTASSIUM SERUM; Value: 4.0; Range: 3.5-5.1; Units: MEQ/L; Status: F Test: CHLORIDE LEVEL; Value: 106; Range: 98-107; Units: MEQ/L; Status: F Test: CARBON DIOXIDE LEVEL; Value: 24; Range: 21-32; Units: MEQ/L; Status: F Test: ANION GAP; Value: 13; Range: 8-16; Units: MEQ/L; Status: F Test: CALCIUM LEVEL; Value: 9.0; Range: 8.8-10.2; Units: MG/DL; Status: F Test Note: ; Units are mL/min/1.73 m2 Chronic Kidney Disease Staging per NKF: Stage I & II GFR >=60 Normal to Mildly Decreased Stage III GFR 30-59 Moderately Decreased Stage IV GFR 15-29 Severely Decreased Stage V GFR <15 Very Little GFR Left ESRD GFR <15 on INTEGRATED CIRCUIT DESIGN ENGINEER Lab Order: CBC with Diff; SPEC'M 12/14/16 11:43 Test: WHITE BLOOD COUNT; Value: 5.4; Range: 4.0-10.0; Units: K/mm3; Status: F Test: RED BLOOD COUNT; Value: 4.13; Range: 4.00-5.40; Units: M/mm3; Status: F Test: HEMOGLOBIN; Value: 13.1; Range: 12.0-16.0; Units: g/dl; Status: F Test: HEMATOCRIT; Value: 40.4; Range: 36.0-47.0; Units: %; Status: F Test: MEAN CORPUSCULAR VOLUME; Value: 98.0; Range: 80.0-96.0; Abnormal: Above high normal; Units: fl; Status: F Test: MEAN CORPUSCULAR HEMOGLOBIN; Value: 31.7; Range: 27.0-33.0; Units: pg; Status: F Test: MEAN CORPUSCULAR HGB CONC; Value: 32.3; Range: 32.0-36.5; Units: g/dl; Status: F Test: RED CELL DISTRIBUTION WIDTH; Value: 12.5; Range: 11.5-14.5; Units: %; Status: F Test: PLATELET COUNT, AUTOMATED; Value: 195; Range: 150-450; Units: k/mm3; Status: F Test: NEUTROPHILS %; Value: 51.7; Range: 36.0-66.0; Units: %; Status: F Test: LYMPH %; Value: 33.9; Range: 24.0-44.0; Units: %; Status: F Test: MONO %; Value: 8.0; Range: 0.0-5.0; Abnormal: Above high normal; Units: %; Status: F Test: EOS %; Value: 3.7; Range: 0.0-3.0; Abnormal: Above high normal; Units: %; Status: F Test: BASO %; Value: 0.6; Range: 0.0-1.0; Units: %; Status: F Test: LARGE UNSTAINED CELL %; Value: 2.2; Range: 0.0-4.0; Units: %; Status: F Test: NEUTROPHILS #; Value: 2.8; Range: 1.8-7.7; Units: K/mm3; Status: F Test: LYMPH #; Value: 2.0; Range: 1.5-4.5; Units: K/mm3; Status: F Test: MONO #; Value: 0.4; Range: 0.0-0.8; Units: K/mm3; Status: F Test: EOS #; Value: 0.2; Range: 0.0-0.50; Units: K/mm3; Status: F Test: BASO #; Value: 0.0; Range: 0.0-0.2; Units: K/mm3; Status: F Test: LARGE UNSTAINED CELL #; Value: 0.1; Range: 0.0-0.4; Units: K/mm3; Status: F Lab Order: Urine Culture; SPEC'M 12/14/16 11:43 Test: URINE CULTURE; Value: <EXTERNAL COMMENT eCWMed> FULL REPORT IN LAB NOTES (eCW and Medent).; Status: F Test: URINE CULTURE; Value: ORGANISM 1: LACTOBACILLUS SPECIES; Status: F Test: URINE CULTURE; Value: LACTOBACILLUS SPECIES; Status: F Test: URINE CULTURE; Value: COLONY COUNT CFU/ml >100,000; Status: F Test: URINE CULTURE; Value: Lactobacillus sp line 1 Most Lactobacillus species recovered from clinical; Status: F Test: URINE CULTURE; Value: Lactobacillus sp line 2 specimens are rarely pathogenic. Penicillin or; Status: F Test: URINE CULTURE; Value: Lactobacillus sp line 3 ampicillin with or without gentamicin is recommended; Status: F Test: URINE CULTURE; Value: Lactobacillus sp line 4 for treatment. Clindamycin and erythromycin are; Status: F Test: URINE CULTURE; Value: Lactobacillus sp line 5 alternative treatments. Vancomycin resistance has been; Status: F Test: URINE CULTURE; Value: Lactobacillus sp line 6 reported.; Status: F Lab Order: Pt & Aptt; SPEC'M 12/14/16 11:43 Test: PROTHROMBIN TIME; Value: 13.4; Range: 12.3-14.5; Units: SECONDS; Status: F Test: INR; Value: 1.01; Status: F Test: PARTIAL THROMBOPLASTIN TIME; Value: 26.4; Range: 26.6-37.1; Abnormal: Below low normal; Units: SECONDS; Status: F Test Note: ; THERAPUTIC HUMAN INR VALUES INDICATIONS NORMAL RANGES PROPHYLAXIS/TREATMENT OF: VENOUS THROMBOSIS 2.0-3.0 PULMONARY EMBOLISM 2.0-3.0 PREVENTION OF SYSTEMIC EMBOLISM FROM: TISSUE HEART VALVES 2.0-3.0 ACUTE MYOCARDIAL INFARCTION 2.0-3.0 VALVULAR HEART DISEASE 2.0-3.0 ATRIAL FIBRILLATION 2.0-3.0 MECHANICAL VALVES(HIGH RISK) 2.5-3.5 RECURRENT MYOCARDIAL INFARCTION 2.5-3.5 Lab Order: URINALYSIS MANUAL; SPEC'M 12/14/16 11:43 Test: APPEARANCE, URINE MANUAL; Value: TURBID; Range: CLEAR; Abnormal: Above high normal; Status: F Test: COLOR, URINE MANUAL; Value: RED; Range: YELLOW; Abnormal: Above high normal; Status: F Test: PH,URINE MAN; Value: 5.0; Range: 5.0 - 9.0; Units: UNITS; Status: F Test: SPECIFIC GRAVITY,URINE MANUAL; Value: 1.020; Range: 1.002-1.035; Status: F Test: PROTEIN, URINE MANUAL; Value: 2+; Range: NEGATIVE; Abnormal: Above high normal; Units: mg/dL; Status: F Test: GLUCOSE, URINE (UA) MANUAL; Value: NEGATIVE; Range: NEGATIVE; Units: mg/dL; Status: F Test: KETONE, URINE MANUAL; Value: NEGATIVE; Range: NEGATIVE; Units: mg/dL; Status: F Test: UROBILINOGEN, URINE MANUAL; Value: NORMAL; Range: NORMAL; Units: mg/dl; Status: F Test: BILIRUBIN, URINE MANUAL; Value: NEGATIVE; Range: NEGATIVE; Status: F Test: NITRITE, URINE MANUAL; Value: NEGATIVE; Range: NEGATIVE; Status: F Test: LEUKOCYTE ESTERASE, URINE MAN; Value: POSITIVE; Range: NEGATIVE; Abnormal: Above high normal; Status: F Test: BLOOD URINE MANUAL; Value: POSITIVE; Range: NEGATIVE; Abnormal: Above high normal; Status: F Lab Order: MICROSCOPIC, URINE; SPEC'M 12/14/16 11:43 Test: WBC, URINE; Value: 30-40; Range: 0-3; Abnormal: Above high normal; Units: /hpf; Status: F Test: RBC, URINE; Value: TNTC; Range: 0-3; Abnormal: Above high normal; Units: /hpf; Status: F Test: SQUAMOUS EPITHELIAL CELL URINE; Value: NONE SEEN; Range: SMALL AMT; Units: /hpf; Status: F Test: BACTERIA, URINE; Value: LARGE AMOUNT; Range: NONE; Abnormal: Above high normal; Status: F Test: HYALINE CAST, URINE; Value: NONE SEEN; Range: 0-1; Units: /lpf; Status: F Test: MICROSCOPIC EXAM; Value: PERFORMED; Status: F Radiology Order: CT ABD & PELVIS: No Contrast Test: CT ABD & PELVIS: No Contrast REASON FOR EXAMINATION: Renal colic; CT ABDOMEN AND PELVIS WITHOUT IV CONTRAST:; ; CT abdomen and pelvis is performed. No oral or IV contrast is utilized.; ; Visualized lung bases demonstrate interstitial fibrotic change. Liver, spleen,; adrenals, pancreas, and kidneys are grossly unremarkable in appearance. Patient; has had a cholecystectomy. There is no significant biliary dilatation identified.; There are moderate atherosclerotic calcifications of the abdominal aorta without; aneurysm. I see no adenopathy. I see no free air or free fluid. I see no bowel; wall thickening. There is extensive sigmoid diverticulosis without evidence of; acute diverticulitis. I see no pelvic mass. Urinary bladder is mildly distended; and grossly unremarkable. There does appear to be a calculus in the distal end of; the left ureter measuring 6 mm in diameter. There is no left; hydroureteronephrosis. There is a small hiatal hernia.; ; IMPRESSION:; ; There is a 6 mm calculus in the distal end of the left ureter without significant; left-sided hydroureteronephrosis. No other renal or ureteral stones are seen.; Sigmoid diverticulosis without evidence of acute diverticulitis. Small hiatal; hernia.; ; ; Signed by; Bob Gayle MD 12/14/2016 02:20 P; Outcome: 12/14 14:08 Discharge ordered by Provider. cc10 14:14 Discharge Assessment: Patient awake, alert and oriented x 3. No cognitive and/or dsf functional deficits noted. Patient verbalized understanding of disposition instructions. patient administered narcotics - no. The following High Risk Discharge criteria are identified: None. Discharged to home ambulatory. Condition: stable. Discharge instructions given to patient, Instructed on discharge instructions, follow up and referral plans. medication usage, Demonstrated understanding of instructions, medications, Pt was receptive of discharge instructions/ teaching. Prescriptions given X 2. CT Study completed. Property sent home with patient. 14:15 Patient left the ED. f Signatures: Dispatcher [employer] EDMS Heide Soares RN RN kcs Scott, Debra, RN RN dls Murphy, Jane, WILDLIFE MANAGER WILDLIFE MANAGER jam1 Jim Olguin krDelilah Shetty, Reg Reg gb Ganter, LoriLee, Reg Reg lg Lynn, Paula, WILDLIFE MANAGER WILDLIFE MANAGER ct3 Maegan De La Cruz RN RN dsf Ronnell Bcaon, PA-C PA-C cc10 Corrections: (The following items were deleted from the chart) 12:21 11:47 URINALYSIS+LAB sent. [facility] EDMS Chart Complete MTDD
== END 2016-12-14 14:15 | disposition home or self-care (01) ==
LOC: M ED 09:58
DX: N20.1 Calculus of ureter (principal); I10 Essential (primary) hypertension; R56.9 Unspecified convulsions; Z87.442 Personal history of urinary calculi; Z87.81 Personal history of (healed) traumatic fracture; Z86.61 Personal history of infections of the central nervous system

== ENCOUNTER 2016-12-15 09:50 | Emergency (ER) | payer MEDICARE ==
[2016-12-15 10:52] LABS: CALCIUM LEVEL 8.5 MG/DL (8.8-10.2); CREATININE FOR GFR 1.27 MG/DL (0.55-1.02); GLOMERULAR FILTRATION RATE 42.8 (>32); POTASSIUM SERUM 4.1 MEQ/L (3.5-5.1)
[2016-12-15 10:59] LABS: BASO % 0.6 % (0.0-1.0); EOS # 0.1 K/mm3 (0.0-0.50); EOS % 3.6 % (0.0-3.0); LARGE UNSTAINED CELL # 0.1 K/mm3 (0.0-0.4); LARGE UNSTAINED CELL % 1.4 % (0.0-4.0); LYMPH # 0.9 K/mm3 (1.5-4.5); LYMPH % 23.6 % (24.0-44.0); MEAN CORPUSCULAR HEMOGLOBIN 31.1 pg (27.0-33.0); MEAN CORPUSCULAR HGB CONC 31.8 g/dl (32.0-36.5); MEAN CORPUSCULAR VOLUME 97.7 fl (80.0-96.0); MONO # 0.2 K/mm3 (0.0-0.8); NEUTROPHILS # 2.5 K/mm3 (1.8-7.7); NEUTROPHILS % 64.8 % (36.0-66.0); PLATELET COUNT, AUTOMATED 169 k/mm3 (150-450); RED CELL DISTRIBUTION WIDTH 12.5 % (11.5-14.5); WHITE BLOOD COUNT 3.8 K/mm3 (4.0-10.0)
--- NOTE | 2016-12-15 11:11 | REP ---
CT HEAD WITHOUT CONTRAST: HISTORY: Trauma. COMPARISON: 08/18/2016. Areas of decreased attenuation are present in the periventricular and subcortical white matter. This represents small vessel ischemic disease. There is no intraparenchymal hemorrhage, mass or midline shift. The ventricular system and cortical sulci are dilated consistent with mild volume loss. There is no extracerebral collection. There is no fracture. The visualized sinuses are clear. IMPRESSION: 1. Small vessel ischemic disease. 2. Mild volume loss. Signed by Parish Newman MD 12/15/2016 11:02 A
--- NOTE | 2016-12-15 13:16 | EDDOCDS ---
Physician Documentation [facility] Name: Mariya Gomez Age: 81 yrs Sex: Female : 1935 Arrival Date: 12/15/2016 Time: 09:50 Bed [place] by 5 Private MD: Yannick Enamorado MD Disposition: 12/15 12:43 Critical Care: Critical care not applicable. pc Disposition: 12/15/16 12:47 Discharged to Home/Self Care. Impression: Syncope and collapse - due to Flomax, Orthostatic hypotension - due to Flomax, Chronic kidney disease, stage 3 (moderate) - due to Cipro. - Condition is Stable. - Discharge Instructions: Orthostatic Hypotension, Syncope. - Medication Reconciliation, Local Pharmacy Hours form. - Follow up: Albina Christianson; When: Call to arrange an appointment; Reason: Recheck today's complaints, Continuance of care. - Problem is new. - Symptoms have improved. HPI: 10:11 This 81 yrs old Female presents to ER via Ambulance with complaints of pc Syncope. 10:11 The history is obtained from the patient. She was seen here yesterday for hematuria and pc diagnosed with a 6mm left ureteric stone. 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 While at her 's appointment today, she stood up and felt lightheaded and passed out, striking her head on the floor. She says she was awake quickly after hitting the floor. She denies any headache, focal neur deficits, neck pain. She is still having slight blood in her urine but otherwise no complaints. Historical: - Allergies: no known allergies; - Home Meds: 1. Xanax 0.5 mg Oral tab 1 tab 3 times per day as needed (Last dose: Unknown) 2. Keppra 1,000 mg Oral tab 1 tab every 12 hours (Last dose: 12/15/2016 08:00) 3. Drisdol 50,000 unit Oral cap 1 cap once wkly Wednesdays (Last dose: 12/08/2016) 4. Flomax 0.4 mg Oral cp24 1 cap once daily (Last dose: 12/15/2016 08:00) 5. Cipro 500 mg Oral tab 1 tab every 12 hours (Last dose: 12/14/2016) - PMHx: compression fractures; Encephalitis; Hypertension; Kidney stones; Seizures; Stage 3 Renal Disease; - PSHx: Cholecystectomy; urinary stents; - The history from nurses notes was reviewed: and elements of the historical information I have obtained differs from that reported to nursing. - Social history: Smoking status: Patient states former smoker of tobacco. No barriers to communication noted, The patient speaks fluent Kazakh, Speaks appropriately for age. - : The pt / caregiver states he / she is not on anticoagulants. Home medication list is obtained from the patient. - Hospitalizations: : No recent hospitalization is reported. - Exposure Risk Screening:: None identified. - Immunization history:: All immunizations up-to-date. - Family history: Not pertinent. - Social history:: the patient is a non-smoker, the patient does not drink alcohol. ROS: 10:17 All systems are negative except as listed. pc Exam: 10:17 General Appearance: no acute distress, alert. pc 10:17 EENT: normal eye inspection, ears, nose and throat normal, pharynx normal, mucous membranes moist no apparent trauma. 10:17 Neck: The exam reveals no acute abnormalities. ROM is normal and painless. No nuchal rigidity is noted.. 10:17 Respiratory: no respiratory distress, normal breath sounds, chest non-tender. 10:17 CVS: regular pulse rate, regular rhythm, normal S1 and S2, no murmurs, strong peripheral pulses, normal capillary refill. 10:17 Abdomen: soft, non-tender, no organomegaly, normal bowel sounds. 10:17 Back: normal inspection. 10:17 Skin: skin color is normal, warm, dry. 10:17 Extremities: The extremities have a grossly normal appearance, are non-tender, without acute ROM abnormalities. 10:17 Neuro: oriented x 3, cranial nerves normal as tested, no motor deficits, no sensory deficits. 10:17 Psych: normal mood. Vital Signs: 10:02 Pulse 76 MON; Pulse Ox 96% ; dsf 10:02 BP 153 / 72 Supine (auto/); dsf 10:03 Pulse 72 MON; Pulse Ox 97% ; bcj 10:03 BP 136 / 63 (auto/); bcj 10:04 BP 136 / 63 Sitting; Pulse 77; Resp 20; Pulse Ox 98% on R/A; Weight 70.76 kg / 156 lbs dsf (R); Height 5 ft. 3 in. (160.02 cm); Pain 1/10; 10:04 BP 102 / 57 Standing; Pulse 74; Pulse Ox 97% on R/A; dsf 10:05 BP 102 / 57 (auto/); bcj 10:05 Pulse 76 MON; Pulse Ox 97% ; bcj 10:12 Temp 96.8(O); dsf 10:21 BP 144 / 68 (auto/); bcj 10:21 Pulse 68 MON; Pulse Ox 95% ; bcj 10:36 Pulse 68 MON; Pulse Ox 97% ; bcj 10:36 BP 151 / 73 (auto/); bcj 10:51 BP 147 / 74 (auto/); bcj 10:51 Pulse 68 MON; Pulse Ox 95% ; bcj 11:06 Pulse 66 MON; Pulse Ox 94% ; bcj 11:06 BP 136 / 77 (auto/); bcj 11:22 Pulse 82 MON; bcj 11:23 BP 165 / 70 (auto/); bcj 11:25 Pulse 68 MON; Pulse Ox 96% ; bcj 11:36 Pulse 64 MON; Pulse Ox 97% ; dsf 11:36 BP 159 / 72 Supine (auto/); dsf 11:47 Pulse 70 MON; Pulse Ox 97% ; dsf 11:47 BP 165 / 77 Sitting (auto/); dsf 11:48 Pulse 66 MON; Pulse Ox 97% ; dsf 11:48 BP 149 / 69 Standing (auto/); dsf 11:49 Pulse 68 MON; Pulse Ox 97% ; bcj 11:49 BP 146 / 64 (auto/); bcj 11:51 BP 173 / 80 (auto/); bcj 11:51 Pulse 72 MON; Pulse Ox 96% ; bcj 12:06 BP 175 / 78 (auto/); bcj 12:06 Pulse 64 MON; Resp 20; Temp 98.8(O); Pulse Ox 96% on R/A; Pain 0/10; bcj 10:04 Body Mass Index 27.63 (70.76 kg, 160.02 cm) dsf 11:48 pt reports feeling slighlty lightheaded when standing dsf MDM: 09:55 ECG WITH READING ER PHYS+CARDIAG ordered. EDMS 10:11 IV Saline Lock ordered. pc 10:11 Orthostatic VS ordered. pc 10:12 CBC with Diff Ordered. EDMS 10:12 MED Profile Ordered. EDMS 10:12 CT Head Without Contrast Ordered. EDMS 10:17 Differential Diagnosis: syncope, likely drug related; stage 3 [address] on Cipro. Plan: labs, pc imaging. 11:07 Test interpretation: EKG. pc 11:10 Financial registration complete. lg 11:12 CBC with Diff Reviewed. pc 11:12 MED Profile Reviewed. pc 11:12 CT Head Without Contrast Reviewed. pc 11:13 NS 0.9% 500 ml IV at bolus once ordered. pc 11:50 Orthostatic VS ordered. pc 12:43 Data reviewed: old medical records, nurses notes, EKG(s), lab test results, all pc radiology studies and available results. Test interpretation: LAB - all labs as ordered have been reviewed, interpreted and considered in the overall management of the clinical presentation; interpreted by Radiologist and personally reviewed, Head CT; no acute disease. The patient has been re-examined and re-evaluated. The patient's symptoms have markedly improved after treatment. ED course: Her orthostatic vital signs normalized after IVF. . 12:43 Physician consultation: Dr. Albina Christianson regarding patient's condition, and it was pc decided with her syncopal episode most likely due to Flomax, it will be discontinued. Her urine culture also resulted today and grew only lactobacillus, which does not require ABX, so her Cipro will be discontinued. . Disposition: The historical points, examination findings, and any diagnostic results supporting the provided diagnosis, were discussed with the patient or legal guardian. The need for outpatient follow up with the provider listed on their discharge instructions was discussed. They were encouraged to return to [facility], or the nearest ED, if symptoms worsen/persist, or for any other questions/concerns. 12:50 [facility] [place] Agreement was scanned into [employer] and attached to record. EC:07 Rate is 69 beats/min. Rhythm is regular, Normal Sinus Rhythm with 1st degree heart pc block. QRS Nelson is Normal. MA interval is prolonged at 240 msec. QRS interval is normal. QT interval is normal. No Q waves. T waves are Normal. No ST changes noted. Clinical impression: Normal Sinus Rhythm, 1st degree heart block, and PRWP. Administered Medications: 11:20 Drug: NS 0.9% 500 ml [sodium chloride 0.9 % injection solution] Route: IV; Rate: bolus; dsf Site: right antecubital; 11:51 Follow up: IV Status: Completed infusion; IV Intake: 500ml dsf Signatures: Dispatcher [employer] Cliff Ortiz MD MD pc Johnson, Bruce, RN RN Adonay Lerma, Reg Reg lg Maegan De La Cruz RN RN dsf The chart was reviewed and I authenticate all verbal orders and agree with the evaluation and treatment provided.Attachments: 12:50 [facility] Payment Agreement lg MTDD
--- NOTE | 2016-12-15 13:16 | EDDOCDS ---
Nurse's Notes [facility] Name: Mariya Gomez Age: 81 yrs Sex: Female : 1935 Arrival Date: 12/15/2016 Time: 09:50 Bed [place] by 5 Private MD: Yannick Enamorado MD Diagnosis: Syncope and collapse-due to Flomax;Orthostatic hypotension-due to Flomax;Chronic kidney disease, stage 3 (moderate)-due to Cipro Presentation: 12/15 09:54 Presenting complaint: EMS states: pt was at the [facility] and passed out. Pt did hit dsf the back of her head on the floor. Pt does not take a blood thinner. Pt c/o being lightheaded. Suicide/Homicide risk assessment- the patient denies having any suicidal and/or homicidal ideations and does not present with any other emotional, behavioral or mental health complaints. 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 Transition of care: patient was received from a primary care office; [facility] . 09:54 Acuity: VI Level 2 dsf 09:54 Method Of Arrival: Ambulance dsf 13:14 Adult Sepsis Screening: The patient does not have new or worsening altered mentation. bcj Patient's respiratory rate is less than 22. Systolic blood pressure is greater than 100. Patient has a qSOFA score of 0- Negative Sepsis Screen. Triage Assessment: 09:58 General: Appears in no apparent distress, Behavior is appropriate for age, cooperative. dsf Pain: Location: coccyx Pain currently is 1 out of 10 on a pain scale. Quality of pain is described as sore. The patient is triaged at the bedside. See Assessment in Nurses Notes section of ED record. Neurological: Level of Consciousness is awake, alert, Oriented to person, place, time. Cardiovascular: Capillary refill Heart tones S1 S2 present Rhythm is sinus rhythm No ectopy. 10:03 Respiratory: Airway is patent Respiratory effort is even, unlabored, Respiratory dsf pattern is regular, symmetrical, Breath sounds are clear bilaterally. GI: Abdomen is non- distended Bowel sounds present X 4 quads. Abd is soft and non tender X 4 quads. Derm: Skin is pink, warm & dry. Historical: - Allergies: no known allergies; - Home Meds: 1. Xanax 0.5 mg Oral tab 1 tab 3 times per day as needed (Last dose: Unknown) 2. Keppra 1,000 mg Oral tab 1 tab every 12 hours (Last dose: 12/15/2016 08:00) 3. Drisdol 50,000 unit Oral cap 1 cap once wkly Wednesdays (Last dose: 12/08/2016) 4. Flomax 0.4 mg Oral cp24 1 cap once daily (Last dose: 12/15/2016 08:00) 5. Cipro 500 mg Oral tab 1 tab every 12 hours (Last dose: 12/14/2016) - PMHx: compression fractures; Encephalitis; Hypertension; Kidney stones; Seizures; Stage 3 Renal Disease; - PSHx: Cholecystectomy; urinary stents; - The history from nurses notes was reviewed: and elements of the historical information I have obtained differs from that reported to nursing. - Social history: Smoking status: Patient states former smoker of tobacco. No barriers to communication noted, The patient speaks fluent Cypriot, Speaks appropriately for age. - : The pt / caregiver states he / she is not on anticoagulants. Home medication list is obtained from the patient. - Hospitalizations: : No recent hospitalization is reported. - Exposure Risk Screening:: None identified. - Immunization history:: All immunizations up-to-date. - Family history: Not pertinent. - Social history:: the patient is a non-smoker, the patient does not drink alcohol. Screenin:13 Screening information is obtained from the patient. Fall risk: At risk due to prior j history of falls, The following interventions are performed due to a positive Fall Risk Screen: Fall Risk is added to Special Handling on the patient Summary Screen. A Fall Risk Bracelet was applied to the patient. Side Rails are placed in the up position. A Call Matos is given with instruction to call for help when getting out of bed. Fall Alert bracelet is placed on the patient. Assistance ADL's: requires no assistance with activities of daily living. Abuse/DV Screen: The patient / caregiver reports he/she is: not in a situation that causes fear, pain or injury. Nutritional screening: No deficits noted. Advance Directives: Currently, there is no health care proxy. home support is adequate. Assessment: 09:58 General: see triage nursing assessment . dsf 10:58 Adult Sepsis Screening: The patient does not have new or worsening altered mentation. dsf Patient's respiratory rate is less than 22. Systolic blood pressure is greater than 100. Patient has a qSOFA score of 0- Negative Sepsis Screen. General: Appears in no apparent distress, Behavior is appropriate for age, cooperative. Neurological: Level of Consciousness is awake, alert, Oriented to person, place, time. Cardiovascular: Capillary refill < 3 seconds Heart tones S1 S2 present. Respiratory: Airway is patent Respiratory effort is even, unlabored, Respiratory pattern is regular, symmetrical, Breath sounds are clear bilaterally. GI: Abdomen is non- distended Bowel sounds present X 4 quads. Abd is soft and non tender X 4 quads. Derm: Skin is pink, warm & dry. 11:51 General: Appears in no apparent distress, comfortable, Behavior is appropriate for age, dsf cooperative. Neurological: Level of Consciousness is awake, alert. Cardiovascular: Capillary refill < 3 seconds Rhythm is sinus rhythm No ectopy. Respiratory: Airway is patent Respiratory effort is even, unlabored, Respiratory pattern is regular, symmetrical. Derm: Skin is pink, warm & dry. 12:51 General: Appears in no apparent distress, comfortable, Behavior is appropriate for age, bcj cooperative. Pain: Denies pain. Neurological: Level of Consciousness is awake, alert, Oriented to person, place, time. Cardiovascular: Capillary refill < 3 seconds Heart tones S1 S2 present. Respiratory: Airway is patent Respiratory effort is even, unlabored, Respiratory pattern is regular, symmetrical, Breath sounds are clear bilaterally. GI: Abdomen is non- distended Bowel sounds present X 4 quads. Abd is soft and non tender X 4 quads. Derm: Skin is pink, warm & dry. 13:12 General: Appears in no apparent distress, Behavior is appropriate for age, cooperative, bcj Denies lightheaded. Neurological: Level of Consciousness is awake, alert. Cardiovascular: Capillary refill < 3 seconds. Respiratory: Airway is patent Respiratory effort is even, unlabored, Respiratory pattern is regular, symmetrical. Derm: Skin is pink, warm & dry. Vital Signs: 10:02 Pulse 76 MON; Pulse Ox 96% ; dsf 10:02 BP 153 / 72 Supine (auto/); dsf 10:03 Pulse 72 MON; Pulse Ox 97% ; bcj 10:03 BP 136 / 63 (auto/); bcj 10:04 BP 136 / 63 Sitting; Pulse 77; Resp 20; Pulse Ox 98% on R/A; Weight 70.76 kg (R); dsf Height 5 ft. 3 in. (160.02 cm); Pain 1/10; 10:04 BP 102 / 57 Standing; Pulse 74; Pulse Ox 97% on R/A; dsf 10:05 BP 102 / 57 (auto/); bcj 10:05 Pulse 76 MON; Pulse Ox 97% ; bcj 10:12 Temp 96.8(O); dsf 10:21 BP 144 / 68 (auto/); bcj 10:21 Pulse 68 MON; Pulse Ox 95% ; bcj 10:36 Pulse 68 MON; Pulse Ox 97% ; bcj 10:36 BP 151 / 73 (auto/); bcj 10:51 BP 147 / 74 (auto/); bcj 10:51 Pulse 68 MON; Pulse Ox 95% ; bcj 11:06 Pulse 66 MON; Pulse Ox 94% ; bcj 11:06 BP 136 / 77 (auto/); bcj 11:22 Pulse 82 MON; bcj 11:23 BP 165 / 70 (auto/); bcj 11:25 Pulse 68 MON; Pulse Ox 96% ; bcj 11:36 Pulse 64 MON; Pulse Ox 97% ; dsf 11:36 BP 159 / 72 Supine (auto/); dsf 11:47 Pulse 70 MON; Pulse Ox 97% ; dsf 11:47 BP 165 / 77 Sitting (auto/); dsf 11:48 Pulse 66 MON; Pulse Ox 97% ; dsf 11:48 BP 149 / 69 Standing (auto/); dsf 11:49 Pulse 68 MON; Pulse Ox 97% ; bcj 11:49 BP 146 / 64 (auto/); bcj 11:51 BP 173 / 80 (auto/); bcj 11:51 Pulse 72 MON; Pulse Ox 96% ; bcj 12:06 BP 175 / 78 (auto/); bcj 12:06 Pulse 64 MON; Resp 20; Temp 98.8(O); Pulse Ox 96% on R/A; Pain 0/10; bcj 10:04 Body Mass Index 27.63 (70.76 kg, 160.02 cm) dsf 11:48 pt reports feeling slighlty lightheaded when standing dsf Vitals: 10:04 Log In Time N/A - ambulance arrival. dsf 13:13 Glucose Measurement D-stick deferred by provider. bcj ED Course: 09:51 Patient visited by Maggie Reddy, Commissions Analyst. lbd 09:51 Patient moved to Waiting lbd 09:52 Yannick Enamorado is Private Physician. lbd 09:52 Patient moved to 5 lbd 09:56 Triage Initiated dsf 10:04 Cliff Hebert MD is Attending Physician. pc 10:10 Patient visited by Cliff Hebert MD. pc 10:23 MED Profile Sent. dsf 10:23 CBC with Diff Sent. dsf 10:[address] dsf 10:26 EKG done. (by ED staff). Reviewed by Cliff Hebert MD. nb2 10:27 Patient visited by Shantel Cassidy. nb2 10:33 Patient moved to 5 dsf 11:12 CT Head Without Contrast Returned. EDMS 11:27 Patient visited by Maegan De La Cruz,JARON. dsf 11:27 Patient visited by Betina Gonzalez, Commissions Analyst. jlm 11:27 Assisted to bedside commode. jlm 11:52 Patient visited by Maegan De La Cruz,JARON. dsf 12:46 Albina Christianson is Referral Physician. pc 12:50 [facility] Payment Agreement was scanned into [employer] and attached to record. lg 13:07 Patient moved to [place] by 5 kcs 13:13 The patient / caregiver is instructed regarding the plan of care and ED course. bcj 13:13 Discontinued lock intact, bleeding controlled, pressure dressing applied, No bcj redness/swelling at site. No procedures done that require assistance. Administered Medications: 11:20 Drug: NS 0.9% 500 ml [sodium chloride 0.9 % injection solution] Route: IV; Rate: bolus; dsf Site: right antecubital; 11:51 Follow up: IV Status: Completed infusion; IV Intake: 500ml dsf Intake: 11:51 IV: 500.00ml; Total: 500.00ml. dsf Order Results: Lab Order: CBC with Diff; SPEC'M 12/15/16 10:21 Test: WHITE BLOOD COUNT; Value: 3.8; Range: 4.0-10.0; Abnormal: Below low normal; Units: K/mm3; Status: F Test: RED BLOOD COUNT; Value: 3.68; Range: 4.00-5.40; Abnormal: Below low normal; Units: M/mm3; Status: F Test: HEMOGLOBIN; Value: 11.4; Range: 12.0-16.0; Abnormal: Below low normal; Units: g/dl; Status: F Test: HEMATOCRIT; Value: 36.0; Range: 36.0-47.0; Units: %; Status: F Test: MEAN CORPUSCULAR VOLUME; Value: 97.7; Range: 80.0-96.0; Abnormal: Above high normal; Units: fl; Status: F Test: MEAN CORPUSCULAR HEMOGLOBIN; Value: 31.1; Range: 27.0-33.0; Units: pg; Status: F Test: MEAN CORPUSCULAR HGB CONC; Value: 31.8; Range: 32.0-36.5; Abnormal: Below low normal; Units: g/dl; Status: F Test: RED CELL DISTRIBUTION WIDTH; Value: 12.5; Range: 11.5-14.5; Units: %; Status: F Test: PLATELET COUNT, AUTOMATED; Value: 169; Range: 150-450; Units: k/mm3; Status: F Test: NEUTROPHILS %; Value: 64.8; Range: 36.0-66.0; Units: %; Status: F Test: LYMPH %; Value: 23.6; Range: 24.0-44.0; Abnormal: Below low normal; Units: %; Status: F Test: MONO %; Value: 6.0; Range: 0.0-5.0; Abnormal: Above high normal; Units: %; Status: F Test: EOS %; Value: 3.6; Range: 0.0-3.0; Abnormal: Above high normal; Units: %; Status: F Test: BASO %; Value: 0.6; Range: 0.0-1.0; Units: %; Status: F Test: LARGE UNSTAINED CELL %; Value: 1.4; Range: 0.0-4.0; Units: %; Status: F Test: NEUTROPHILS #; Value: 2.5; Range: 1.8-7.7; Units: K/mm3; Status: F Test: LYMPH #; Value: 0.9; Range: 1.5-4.5; Abnormal: Below low normal; Units: K/mm3; Status: F Test: MONO #; Value: 0.2; Range: 0.0-0.8; Units: K/mm3; Status: F Test: EOS #; Value: 0.1; Range: 0.0-0.50; Units: K/mm3; Status: F Test: BASO #; Value: 0.0; Range: 0.0-0.2; Units: K/mm3; Status: F Test: LARGE UNSTAINED CELL #; Value: 0.1; Range: 0.0-0.4; Units: K/mm3; Status: F Lab Order: MED Profile; SPEC'M 12/15/16 10:21 Test: GLUCOSE, FASTING; Value: 143; Range: 83-110; Abnormal: Above high normal; Units: MG/DL; Status: F Test: BLOOD UREA NITROGEN; Value: 19; Range: 7-18; Abnormal: Above high normal; Units: MG/DL; Status: F Test: CREATININE FOR GFR; Value: 1.27; Range: 0.55-1.02; Abnormal: Above high normal; Units: MG/DL; Status: F Test: GLOMERULAR FILTRATION RATE; Value: 42.8; Range: >32; Status: F Test: SODIUM LEVEL; Value: 139; Range: 136-145; Units: MEQ/L; Status: F Test: POTASSIUM SERUM; Value: 4.1; Range: 3.5-5.1; Units: MEQ/L; Status: F Test: CHLORIDE LEVEL; Value: 106; Range: 98-107; Units: MEQ/L; Status: F Test: CARBON DIOXIDE LEVEL; Value: 26; Range: 21-32; Units: MEQ/L; Status: F Test: ANION GAP; Value: 7; Range: 8-16; Abnormal: Below low normal; Units: MEQ/L; Status: F Test: CALCIUM LEVEL; Value: 8.5; Range: 8.8-10.2; Abnormal: Below low normal; Units: MG/DL; Status: F Test Note: ; Units are mL/min/1.73 m2 Chronic Kidney Disease Staging per NKF: Stage I & II GFR >=60 Normal to Mildly Decreased Stage III GFR 30-59 Moderately Decreased Stage IV GFR 15-29 Severely Decreased Stage V GFR <15 Very Little GFR Left ESRD GFR <15 on SHOP TAILOR Radiology Order: CT Head Without Contrast Test: CT Head Without Contrast REASON FOR EXAMINATION: Trauma; CT HEAD WITHOUT CONTRAST:; ; HISTORY: Trauma.; ; COMPARISON: 08/18/2016.; ; Areas of decreased attenuation are present in the periventricular and subcortical; white matter. This represents small vessel ischemic disease. There is no; intraparenchymal hemorrhage, mass or midline shift. The ventricular system and; cortical sulci are dilated consistent with mild volume loss. There is no; extracerebral collection. There is no fracture. The visualized sinuses are; clear.; ; IMPRESSION:; ; 1. Small vessel ischemic disease.; ; 2. Mild volume loss.; ; ; Signed by; Parish Newman MD 12/15/2016 11:02 A; Outcome: 12:47 Discharge ordered by Provider. 13:13 Discharge Assessment: Patient awake, alert and oriented x 3. No cognitive and/or bcj functional deficits noted. Patient verbalized understanding of disposition instructions. patient administered narcotics - no. The following High Risk Discharge criteria are identified: None. Discharged to home ambulatory. Condition: stable. Discharge instructions given to patient, Instructed on discharge instructions, follow up and referral plans. Demonstrated understanding of instructions, Pt was receptive of discharge instructions/ teaching. CT Study completed. Property sent home with patient. 13:15 Patient left the ED. [facility] Signatures: Dispatcher [employer] EDCliff Olmedo MD MD pc Sleeman, Kacey, RN RN Maggie Barnes, Commissions Analyst Unit Jose Alberto Palma RN RN Adonay Lerma, Maegan Servin lg, RN RN dsf Mitchell, Jessie, Commissions Analyst Unit Shantel Duong2 Corrections: (The following items were deleted from the chart) 10:03 09:58 Cardiovascular: Capillary refill dsf dsf MTDUmberto
--- NOTE | 2016-12-16 08:07 | ECGEPIP ---
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
--- NOTE | 2016-12-17 14:16 | EDDOCDS ---
Physician Documentation [facility] Name: Mariya Gomez Age: 81 yrs Sex: Female : 1935 Arrival Date: 12/15/2016 Time: 09:50 Bed [place] by 5 Private MD: Yannick Enamorado MD Disposition: 12/15 12:43 Critical Care: Critical care not applicable. pc Disposition: 12/15/16 12:47 Discharged to Home/Self Care. Impression: Syncope and collapse - due to Flomax, Orthostatic hypotension - due to Flomax, Chronic kidney disease, stage 3 (moderate) - due to Cipro. - Condition is Stable. - Discharge Instructions: Orthostatic Hypotension, Syncope. - Medication Reconciliation, Local Pharmacy Hours form. - Follow up: Albina Christianson; When: Call to arrange an appointment; Reason: Recheck today's complaints, Continuance of care. - Problem is new. - Symptoms have improved. HPI: 10:11 This 81 yrs old Female presents to ER via Ambulance with complaints of pc Syncope. 10:11 The history is obtained from the patient. She was seen here yesterday for hematuria and pc diagnosed with a 6mm left ureteric stone. 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 While at her 's appointment today, she stood up and felt lightheaded and passed out, striking her head on the floor. She says she was awake quickly after hitting the floor. She denies any headache, focal neur deficits, neck pain. She is still having slight blood in her urine but otherwise no complaints. Historical: - Allergies: no known allergies; - Home Meds: 1. Xanax 0.5 mg Oral tab 1 tab 3 times per day as needed (Last dose: Unknown) 2. Keppra 1,000 mg Oral tab 1 tab every 12 hours (Last dose: 12/15/2016 08:00) 3. Drisdol 50,000 unit Oral cap 1 cap once wkly Wednesdays (Last dose: 12/08/2016) 4. Flomax 0.4 mg Oral cp24 1 cap once daily (Last dose: 12/15/2016 08:00) 5. Cipro 500 mg Oral tab 1 tab every 12 hours (Last dose: 12/14/2016) - PMHx: compression fractures; Encephalitis; Hypertension; Kidney stones; Seizures; Stage 3 Renal Disease; - PSHx: Cholecystectomy; urinary stents; - The history from nurses notes was reviewed: and elements of the historical information I have obtained differs from that reported to nursing. - Social history: Smoking status: Patient states former smoker of tobacco. No barriers to communication noted, The patient speaks fluent Italian, Speaks appropriately for age. - : The pt / caregiver states he / she is not on anticoagulants. Home medication list is obtained from the patient. - Hospitalizations: : No recent hospitalization is reported. - Exposure Risk Screening:: None identified. - Immunization history:: All immunizations up-to-date. - Family history: Not pertinent. - Social history:: the patient is a non-smoker, the patient does not drink alcohol. ROS: 10:17 All systems are negative except as listed. pc Exam: 10:17 General Appearance: no acute distress, alert. pc 10:17 EENT: normal eye inspection, ears, nose and throat normal, pharynx normal, mucous membranes moist no apparent trauma. 10:17 Neck: The exam reveals no acute abnormalities. ROM is normal and painless. No nuchal rigidity is noted.. 10:17 Respiratory: no respiratory distress, normal breath sounds, chest non-tender. 10:17 CVS: regular pulse rate, regular rhythm, normal S1 and S2, no murmurs, strong peripheral pulses, normal capillary refill. 10:17 Abdomen: soft, non-tender, no organomegaly, normal bowel sounds. 10:17 Back: normal inspection. 10:17 Skin: skin color is normal, warm, dry. 10:17 Extremities: The extremities have a grossly normal appearance, are non-tender, without acute ROM abnormalities. 10:17 Neuro: oriented x 3, cranial nerves normal as tested, no motor deficits, no sensory deficits. 10:17 Psych: normal mood. Vital Signs: 10:02 Pulse 76 MON; Pulse Ox 96% ; dsf 10:02 BP 153 / 72 Supine (auto/); dsf 10:03 Pulse 72 MON; Pulse Ox 97% ; bcj 10:03 BP 136 / 63 (auto/); bcj 10:04 BP 136 / 63 Sitting; Pulse 77; Resp 20; Pulse Ox 98% on R/A; Weight 70.76 kg / 156 lbs dsf (R); Height 5 ft. 3 in. (160.02 cm); Pain 1/10; 10:04 BP 102 / 57 Standing; Pulse 74; Pulse Ox 97% on R/A; dsf 10:05 BP 102 / 57 (auto/); bcj 10:05 Pulse 76 MON; Pulse Ox 97% ; bcj 10:12 Temp 96.8(O); dsf 10:21 BP 144 / 68 (auto/); bcj 10:21 Pulse 68 MON; Pulse Ox 95% ; bcj 10:36 Pulse 68 MON; Pulse Ox 97% ; bcj 10:36 BP 151 / 73 (auto/); bcj 10:51 BP 147 / 74 (auto/); bcj 10:51 Pulse 68 MON; Pulse Ox 95% ; bcj 11:06 Pulse 66 MON; Pulse Ox 94% ; bcj 11:06 BP 136 / 77 (auto/); bcj 11:22 Pulse 82 MON; bcj 11:23 BP 165 / 70 (auto/); bcj 11:25 Pulse 68 MON; Pulse Ox 96% ; bcj 11:36 Pulse 64 MON; Pulse Ox 97% ; dsf 11:36 BP 159 / 72 Supine (auto/); dsf 11:47 Pulse 70 MON; Pulse Ox 97% ; dsf 11:47 BP 165 / 77 Sitting (auto/); dsf 11:48 Pulse 66 MON; Pulse Ox 97% ; dsf 11:48 BP 149 / 69 Standing (auto/); dsf 11:49 Pulse 68 MON; Pulse Ox 97% ; bcj 11:49 BP 146 / 64 (auto/); bcj 11:51 BP 173 / 80 (auto/); bcj 11:51 Pulse 72 MON; Pulse Ox 96% ; bcj 12:06 BP 175 / 78 (auto/); bcj 12:06 Pulse 64 MON; Resp 20; Temp 98.8(O); Pulse Ox 96% on R/A; Pain 0/10; bcj 10:04 Body Mass Index 27.63 (70.76 kg, 160.02 cm) dsf 11:48 pt reports feeling slighlty lightheaded when standing dsf MDM: 09:55 ECG WITH READING ER PHYS+CARDIAG ordered. EDMS 10:11 IV Saline Lock ordered. pc 10:11 Orthostatic VS ordered. pc 10:12 CBC with Diff Ordered. EDMS 10:12 MED Profile Ordered. EDMS 10:12 CT Head Without Contrast Ordered. EDMS 10:17 Differential Diagnosis: syncope, likely drug related; stage 3 [address] on Cipro. Plan: labs, pc imaging. 11:07 Test interpretation: EKG. pc 11:10 Financial registration complete. lg 11:12 CBC with Diff Reviewed. pc 11:12 MED Profile Reviewed. pc 11:12 CT Head Without Contrast Reviewed. pc 11:13 NS 0.9% 500 ml IV at bolus once ordered. pc 11:50 Orthostatic VS ordered. pc 12:43 Data reviewed: old medical records, nurses notes, EKG(s), lab test results, all pc radiology studies and available results. Test interpretation: LAB - all labs as ordered have been reviewed, interpreted and considered in the overall management of the clinical presentation; interpreted by Radiologist and personally reviewed, Head CT; no acute disease. The patient has been re-examined and re-evaluated. The patient's symptoms have markedly improved after treatment. ED course: Her orthostatic vital signs normalized after IVF. . 12:43 Physician consultation: Dr. Albina Christianson regarding patient's condition, and it was pc decided with her syncopal episode most likely due to Flomax, it will be discontinued. Her urine culture also resulted today and grew only lactobacillus, which does not require ABX, so her Cipro will be discontinued. . Disposition: The historical points, examination findings, and any diagnostic results supporting the provided diagnosis, were discussed with the patient or legal guardian. The need for outpatient follow up with the provider listed on their discharge instructions was discussed. They were encouraged to return to [facility], or the nearest ED, if symptoms worsen/persist, or for any other questions/concerns. 12:50 [facility] Payment Agreement was scanned into [employer] and attached to record. lg 15:27 PCR was scanned into [employer] and attached to record. 12/16 13:03 ECG/EKG was scanned into [employer] and attached to record. 13:04 Rhythm Strip was scanned into [employer] and attached to record. gb 13:04 PCR was scanned into [employer] and attached to record. EC/14 11:07 Rate is 69 beats/min. Rhythm is regular, Normal Sinus Rhythm with 1st degree heart pc block. QRS [place] is Normal. [place] interval is prolonged at 240 msec. QRS interval is normal. QT interval is normal. No Q waves. T waves are Normal. No ST changes noted. Clinical impression: Normal Sinus Rhythm, 1st degree heart block, and PRWP. Administered Medications: 11:20 Drug: NS 0.9% 500 ml [sodium chloride 0.9 % injection solution] Route: IV; Rate: bolus; dsf Site: right antecubital; 11:51 Follow up: IV Status: Completed infusion; IV Intake: 500ml dsf Signatures: Dispatcher [employer] EDMS Cliff Hebert MD MD pc Johnson, Bruce, RN RN bcDelilah Chin, Reg Reg gb Adonay Mckenzie, Reg Reg Maegan Garcia,RN RN dsf The chart was reviewed and I authenticate all verbal orders and agree with the evaluation and treatment provided.Attachments: 12:50 [facility] Payment Agreement lg 12/16 13:03 [facility]EKG Chart [facility]
--- NOTE | 2016-12-17 14:16 | EDDOCDS ---
Physician Documentation [facility] Name: Mariya Gomez Age: 81 yrs Sex: Female : 1935 Arrival Date: 12/15/2016 Time: 09:50 Bed [place] by 5 Private MD: Yannick Enamorado MD Disposition: 12/15 12:43 Critical Care: Critical care not applicable. pc Disposition: 12/15/16 12:47 Discharged to Home/Self Care. Impression: Syncope and collapse - due to Flomax, Orthostatic hypotension - due to Flomax, Chronic kidney disease, stage 3 (moderate) - due to Cipro. - Condition is Stable. - Discharge Instructions: Orthostatic Hypotension, Syncope. - Medication Reconciliation, Local Pharmacy Hours form. - Follow up: Albina Christianson; When: Call to arrange an appointment; Reason: Recheck today's complaints, Continuance of care. - Problem is new. - Symptoms have improved. HPI: 10:11 This 81 yrs old Female presents to ER via Ambulance with complaints of pc Syncope. 10:11 The history is obtained from the patient. She was seen here yesterday for hematuria and pc diagnosed with a 6mm left ureteric stone. 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 While at her 's appointment today, she stood up and felt lightheaded and passed out, striking her head on the floor. She says she was awake quickly after hitting the floor. She denies any headache, focal neur deficits, neck pain. She is still having slight blood in her urine but otherwise no complaints. Historical: - Allergies: no known allergies; - Home Meds: 1. Xanax 0.5 mg Oral tab 1 tab 3 times per day as needed (Last dose: Unknown) 2. Keppra 1,000 mg Oral tab 1 tab every 12 hours (Last dose: 12/15/2016 08:00) 3. Drisdol 50,000 unit Oral cap 1 cap once wkly Wednesdays (Last dose: 12/08/2016) 4. Flomax 0.4 mg Oral cp24 1 cap once daily (Last dose: 12/15/2016 08:00) 5. Cipro 500 mg Oral tab 1 tab every 12 hours (Last dose: 12/14/2016) - PMHx: compression fractures; Encephalitis; Hypertension; Kidney stones; Seizures; Stage 3 Renal Disease; - PSHx: Cholecystectomy; urinary stents; - The history from nurses notes was reviewed: and elements of the historical information I have obtained differs from that reported to nursing. - Social history: Smoking status: Patient states former smoker of tobacco. No barriers to communication noted, The patient speaks fluent Malay, Speaks appropriately for age. - : The pt / caregiver states he / she is not on anticoagulants. Home medication list is obtained from the patient. - Hospitalizations: : No recent hospitalization is reported. - Exposure Risk Screening:: None identified. - Immunization history:: All immunizations up-to-date. - Family history: Not pertinent. - Social history:: the patient is a non-smoker, the patient does not drink alcohol. ROS: 10:17 All systems are negative except as listed. pc Exam: 10:17 General Appearance: no acute distress, alert. pc 10:17 EENT: normal eye inspection, ears, nose and throat normal, pharynx normal, mucous membranes moist no apparent trauma. 10:17 Neck: The exam reveals no acute abnormalities. ROM is normal and painless. No nuchal rigidity is noted.. 10:17 Respiratory: no respiratory distress, normal breath sounds, chest non-tender. 10:17 CVS: regular pulse rate, regular rhythm, normal S1 and S2, no murmurs, strong peripheral pulses, normal capillary refill. 10:17 Abdomen: soft, non-tender, no organomegaly, normal bowel sounds. 10:17 Back: normal inspection. 10:17 Skin: skin color is normal, warm, dry. 10:17 Extremities: The extremities have a grossly normal appearance, are non-tender, without acute ROM abnormalities. 10:17 Neuro: oriented x 3, cranial nerves normal as tested, no motor deficits, no sensory deficits. 10:17 Psych: normal mood. Vital Signs: 10:02 Pulse 76 MON; Pulse Ox 96% ; dsf 10:02 BP 153 / 72 Supine (auto/); dsf 10:03 Pulse 72 MON; Pulse Ox 97% ; bcj 10:03 BP 136 / 63 (auto/); bcj 10:04 BP 136 / 63 Sitting; Pulse 77; Resp 20; Pulse Ox 98% on R/A; Weight 70.76 kg / 156 lbs dsf (R); Height 5 ft. 3 in. (160.02 cm); Pain 1/10; 10:04 BP 102 / 57 Standing; Pulse 74; Pulse Ox 97% on R/A; dsf 10:05 BP 102 / 57 (auto/); bcj 10:05 Pulse 76 MON; Pulse Ox 97% ; bcj 10:12 Temp 96.8(O); dsf 10:21 BP 144 / 68 (auto/); bcj 10:21 Pulse 68 MON; Pulse Ox 95% ; bcj 10:36 Pulse 68 MON; Pulse Ox 97% ; bcj 10:36 BP 151 / 73 (auto/); bcj 10:51 BP 147 / 74 (auto/); bcj 10:51 Pulse 68 MON; Pulse Ox 95% ; bcj 11:06 Pulse 66 MON; Pulse Ox 94% ; bcj 11:06 BP 136 / 77 (auto/); bcj 11:22 Pulse 82 MON; bcj 11:23 BP 165 / 70 (auto/); bcj 11:25 Pulse 68 MON; Pulse Ox 96% ; bcj 11:36 Pulse 64 MON; Pulse Ox 97% ; dsf 11:36 BP 159 / 72 Supine (auto/); dsf 11:47 Pulse 70 MON; Pulse Ox 97% ; dsf 11:47 BP 165 / 77 Sitting (auto/); dsf 11:48 Pulse 66 MON; Pulse Ox 97% ; dsf 11:48 BP 149 / 69 Standing (auto/); dsf 11:49 Pulse 68 MON; Pulse Ox 97% ; bcj 11:49 BP 146 / 64 (auto/); bcj 11:51 BP 173 / 80 (auto/); bcj 11:51 Pulse 72 MON; Pulse Ox 96% ; bcj 12:06 BP 175 / 78 (auto/); bcj 12:06 Pulse 64 MON; Resp 20; Temp 98.8(O); Pulse Ox 96% on R/A; Pain 0/10; bcj 10:04 Body Mass Index 27.63 (70.76 kg, 160.02 cm) dsf 11:48 pt reports feeling slighlty lightheaded when standing dsf MDM: 09:55 ECG WITH READING ER PHYS+CARDIAG ordered. EDMS 10:11 IV Saline Lock ordered. pc 10:11 Orthostatic VS ordered. pc 10:12 CBC with Diff Ordered. EDMS 10:12 MED Profile Ordered. EDMS 10:12 CT Head Without Contrast Ordered. EDMS 10:17 Differential Diagnosis: syncope, likely drug related; stage [address] on Cipro. Plan: labs, pc imaging. 11:07 Test interpretation: EKG. pc 11:10 Financial registration complete. lg 11:12 CBC with Diff Reviewed. pc 11:12 MED Profile Reviewed. pc 11:12 CT Head Without Contrast Reviewed. pc 11:13 NS 0.9% 500 ml IV at bolus once ordered. pc 11:50 Orthostatic VS ordered. pc 12:43 Data reviewed: old medical records, nurses notes, EKG(s), lab test results, all pc radiology studies and available results. Test interpretation: LAB - all labs as ordered have been reviewed, interpreted and considered in the overall management of the clinical presentation; interpreted by Radiologist and personally reviewed, Head CT; no acute disease. The patient has been re-examined and re-evaluated. The patient's symptoms have markedly improved after treatment. ED course: Her orthostatic vital signs normalized after IVF. . 12:43 Physician consultation: Dr. Albina Christianson regarding patient's condition, and it was pc decided with her syncopal episode most likely due to Flomax, it will be discontinued. Her urine culture also resulted today and grew only lactobacillus, which does not require ABX, so her Cipro will be discontinued. . Disposition: The historical points, examination findings, and any diagnostic results supporting the provided diagnosis, were discussed with the patient or legal guardian. The need for outpatient follow up with the provider listed on their discharge instructions was discussed. They were encouraged to return to [facility], or the nearest ED, if symptoms worsen/persist, or for any other questions/concerns. 12:50 [facility] Payment Agreement was scanned into [employer] and attached to record. lg 15:27 PCR was scanned into [email or web address] and attached to record. 12/16 13:03 ECG/EKG was scanned into [employer] and attached to record. 13:04 Rhythm Strip was scanned into [employer] and attached to record. gb 13:04 PCR was scanned into [employer] and attached to record. EC/14 11:07 Rate is 69 beats/min. Rhythm is regular, Normal Sinus Rhythm with 1st degree heart pc block. QRS [place] is Normal. [place] interval is prolonged at 240 msec. QRS interval is normal. QT interval is normal. No Q waves. T waves are Normal. No ST changes noted. Clinical impression: Normal Sinus Rhythm, 1st degree heart block, and PRWP. Administered Medications: 11:20 Drug: NS 0.9% 500 ml [sodium chloride 0.9 % injection solution] Route: IV; Rate: bolus; dsf Site: right antecubital; 11:51 Follow up: IV Status: Completed infusion; IV Intake: 500ml dsf Signatures: Dispatcher [employer] EDMS Cliff Hebert MD MD pc Johnson, Bruce, RN RN bcDelilah Chin, Reg Reg gb Adonay Mckenzie, Reg Reg Maegan Garcia,RN RN dsf The chart was reviewed and I authenticate all verbal orders and agree with the evaluation and treatment provided.Attachments: 12:50 [facility] Payment Agreement lg 12/16 13:03 [facility]EKG Chart [facility]
--- NOTE | 2016-12-17 14:16 | EDDOCDS ---
Nurse's Notes [facility] Name: Adin Gomez Age: 81 yrs Sex: Female : 1935 Arrival Date: 12/15/2016 Time: 09:50 Bed [place] by 5 Private MD: Yannick Enamorado MD Diagnosis: Syncope and collapse-due to Flomax;Orthostatic hypotension-due to Flomax;Chronic kidney disease, stage 3 (moderate)-due to Cipro Presentation: 12/15 09:54 Presenting complaint: EMS states: pt was at the [facility] and passed out. Pt did hit dsf the back of her head on the floor. Pt does not take a blood thinner. Pt c/o being lightheaded. Suicide/Homicide risk assessment- the patient denies having any suicidal and/or homicidal ideations and does not present with any other emotional, behavioral or mental health complaints. 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 Transition of care: patient was received from a primary care office; [facility] . 09:54 Acuity: VI Level 2 dsf 09:54 Method Of Arrival: Ambulance dsf 13:14 Adult Sepsis Screening: The patient does not have new or worsening altered mentation. bcj Patient's respiratory rate is less than 22. Systolic blood pressure is greater than 100. Patient has a qSOFA score of 0- Negative Sepsis Screen. Triage Assessment: 09:58 General: Appears in no apparent distress, Behavior is appropriate for age, cooperative. dsf Pain: Location: coccyx Pain currently is 1 out of 10 on a pain scale. Quality of pain is described as sore. The patient is triaged at the bedside. See Assessment in Nurses Notes section of ED record. Neurological: Level of Consciousness is awake, alert, Oriented to person, place, time. Cardiovascular: Capillary refill Heart tones S1 S2 present Rhythm is sinus rhythm No ectopy. 10:03 Respiratory: Airway is patent Respiratory effort is even, unlabored, Respiratory dsf pattern is regular, symmetrical, Breath sounds are clear bilaterally. GI: Abdomen is non- distended Bowel sounds present X 4 quads. Abd is soft and non tender X 4 quads. Derm: Skin is pink, warm & dry. Historical: - Allergies: no known allergies; - Home Meds: 1. Xanax 0.5 mg Oral tab 1 tab 3 times per day as needed (Last dose: Unknown) 2. Keppra 1,000 mg Oral tab 1 tab every 12 hours (Last dose: 12/15/2016 08:00) 3. Drisdol 50,000 unit Oral cap 1 cap once wkly Wednesdays (Last dose: 12/08/2016) 4. Flomax 0.4 mg Oral cp24 1 cap once daily (Last dose: 12/15/2016 08:00) 5. Cipro 500 mg Oral tab 1 tab every 12 hours (Last dose: 12/14/2016) - PMHx: compression fractures; Encephalitis; Hypertension; Kidney stones; Seizures; Stage 3 Renal Disease; - PSHx: Cholecystectomy; urinary stents; - The history from nurses notes was reviewed: and elements of the historical information I have obtained differs from that reported to nursing. - Social history: Smoking status: Patient states former smoker of tobacco. No barriers to communication noted, The patient speaks fluent [place] Islander, Speaks appropriately for age. - : The pt / caregiver states he / she is not on anticoagulants. Home medication list is obtained from the patient. - Hospitalizations: : No recent hospitalization is reported. - Exposure Risk Screening:: None identified. - Immunization history:: All immunizations up-to-date. - Family history: Not pertinent. - Social history:: the patient is a non-smoker, the patient does not drink alcohol. Screenin:13 Screening information is obtained from the patient. Fall risk: At risk due to prior j history of falls, The following interventions are performed due to a positive Fall Risk Screen: Fall Risk is added to Special Handling on the patient Summary Screen. A Fall Risk Bracelet was applied to the patient. Side Rails are placed in the up position. A Call Matos is given with instruction to call for help when getting out of bed. Fall Alert bracelet is placed on the patient. Assistance ADL's: requires no assistance with activities of daily living. Abuse/DV Screen: The patient / caregiver reports he/she is: not in a situation that causes fear, pain or injury. Nutritional screening: No deficits noted. Advance Directives: Currently, there is no health care proxy. home support is adequate. Assessment: 09:58 General: see triage nursing assessment . dsf 10:58 Adult Sepsis Screening: The patient does not have new or worsening altered mentation. dsf Patient's respiratory rate is less than 22. Systolic blood pressure is greater than 100. Patient has a qSOFA score of 0- Negative Sepsis Screen. General: Appears in no apparent distress, Behavior is appropriate for age, cooperative. Neurological: Level of Consciousness is awake, alert, Oriented to person, place, time. Cardiovascular: Capillary refill < 3 seconds Heart tones S1 S2 present. Respiratory: Airway is patent Respiratory effort is even, unlabored, Respiratory pattern is regular, symmetrical, Breath sounds are clear bilaterally. GI: Abdomen is non- distended Bowel sounds present X 4 quads. Abd is soft and non tender X 4 quads. Derm: Skin is pink, warm & dry. 11:51 General: Appears in no apparent distress, comfortable, Behavior is appropriate for age, dsf cooperative. Neurological: Level of Consciousness is awake, alert. Cardiovascular: Capillary refill < 3 seconds Rhythm is sinus rhythm No ectopy. Respiratory: Airway is patent Respiratory effort is even, unlabored, Respiratory pattern is regular, symmetrical. Derm: Skin is pink, warm & dry. 12:51 General: Appears in no apparent distress, comfortable, Behavior is appropriate for age, bcj cooperative. Pain: Denies pain. Neurological: Level of Consciousness is awake, alert, Oriented to person, place, time. Cardiovascular: Capillary refill < 3 seconds Heart tones S1 S2 present. Respiratory: Airway is patent Respiratory effort is even, unlabored, Respiratory pattern is regular, symmetrical, Breath sounds are clear bilaterally. GI: Abdomen is non- distended Bowel sounds present X 4 quads. Abd is soft and non tender X 4 quads. Derm: Skin is pink, warm & dry. 13:12 General: Appears in no apparent distress, Behavior is appropriate for age, cooperative, bcj Denies lightheaded. Neurological: Level of Consciousness is awake, alert. Cardiovascular: Capillary refill < 3 seconds. Respiratory: Airway is patent Respiratory effort is even, unlabored, Respiratory pattern is regular, symmetrical. Derm: Skin is pink, warm & dry. Vital Signs: 10:02 Pulse 76 MON; Pulse Ox 96% ; dsf 10:02 BP 153 / 72 Supine (auto/); dsf 10:03 Pulse 72 MON; Pulse Ox 97% ; bcj 10:03 BP 136 / 63 (auto/); bcj 10:04 BP 136 / 63 Sitting; Pulse 77; Resp 20; Pulse Ox 98% on R/A; Weight 70.76 kg (R); dsf Height 5 ft. 3 in. (160.02 cm); Pain 1/10; 10:04 BP 102 / 57 Standing; Pulse 74; Pulse Ox 97% on R/A; dsf 10:05 BP 102 / 57 (auto/); bcj 10:05 Pulse 76 MON; Pulse Ox 97% ; bcj 10:12 Temp 96.8(O); dsf 10:21 BP 144 / 68 (auto/); bcj 10:21 Pulse 68 MON; Pulse Ox 95% ; bcj 10:36 Pulse 68 MON; Pulse Ox 97% ; bcj 10:36 BP 151 / 73 (auto/); bcj 10:51 BP 147 / 74 (auto/); bcj 10:51 Pulse 68 MON; Pulse Ox 95% ; bcj 11:06 Pulse 66 MON; Pulse Ox 94% ; bcj 11:06 BP 136 / 77 (auto/); bcj 11:22 Pulse 82 MON; bcj 11:23 BP 165 / 70 (auto/); bcj 11:25 Pulse 68 MON; Pulse Ox 96% ; bcj 11:36 Pulse 64 MON; Pulse Ox 97% ; dsf 11:36 BP 159 / 72 Supine (auto/); dsf 11:47 Pulse 70 MON; Pulse Ox 97% ; dsf 11:47 BP 165 / 77 Sitting (auto/); dsf 11:48 Pulse 66 MON; Pulse Ox 97% ; dsf 11:48 BP 149 / 69 Standing (auto/); dsf 11:49 Pulse 68 MON; Pulse Ox 97% ; bcj 11:49 BP 146 / 64 (auto/); bcj 11:51 BP 173 / 80 (auto/); bcj 11:51 Pulse 72 MON; Pulse Ox 96% ; bcj 12:06 BP 175 / 78 (auto/); bcj 12:06 Pulse 64 MON; Resp 20; Temp 98.8(O); Pulse Ox 96% on R/A; Pain 0/10; bcj 10:04 Body Mass Index 27.63 (70.76 kg, 160.02 cm) dsf 11:48 pt reports feeling slighlty lightheaded when standing dsf Vitals: 10:04 Log In Time N/A - ambulance arrival. dsf 13:13 Glucose Measurement D-stick deferred by provider. bcj ED Course: 09:51 Patient visited by Maggie Reddy, Comfort Advisor. lbd 09:51 Patient moved to Waiting lbd 09:52 Yannick Enamorado is Private Physician. lbd 09:52 Patient moved to 5 lbd 09:56 Triage Initiated dsf 10:04 Cliff Hebert MD is Attending Physician. pc 10:10 Patient visited by Cliff Hebert MD. pc 10:23 MED Profile Sent. dsf 10:23 CBC with Diff Sent. dsf 10:[address] dsf 10:26 EKG done. (by ED staff). Reviewed by Cliff Hebert MD. nb2 10:27 Patient visited by Shantel Cassidy. nb2 10:33 Patient moved to 5 dsf 11:12 CT Head Without Contrast Returned. EDMS 11:27 Patient visited by Maegan De La Cruz,JARON. dsf 11:27 Patient visited by Betina Gonzalez, Comfort Advisor. jlm 11:27 Assisted to bedside commode. jlm 11:52 Patient visited by Maegan De La Cruz,JARON. dsf 12:46 Albina Christianson is Referral Physician. pc 12:50 [facility] Payment Agreement was scanned into [employer] and attached to record. lg 13:07 Patient moved to [place] by 5 kcs 13:13 The patient / caregiver is instructed regarding the plan of care and ED course. bcj 13:13 Discontinued lock intact, bleeding controlled, pressure dressing applied, No bcj redness/swelling at site. No procedures done that require assistance. 15:27 PCR was scanned into [employer] and attached to record. gb 12/16 08:15 EKG-ADULT Returned. EDMS 13:03 ECG/EKG was scanned into [employer] and attached to record. gb 13:04 Rhythm Strip was scanned into [employer] and attached to record. gb 13:04 PCR was scanned into [employer] and attached to record. gb Administered Medications: 12/15 11:20 Drug: NS 0.9% 500 ml [sodium chloride 0.9 % injection solution] Route: IV; Rate: bolus; dsf Site: right antecubital; 11:51 Follow up: IV Status: Completed infusion; IV Intake: 500ml dsf Attachments: 13:04 Rhythm Strip gb Intake: 12/15 11:51 IV: 500.00ml; Total: 500.00ml. dsf Order Results: Lab Order: CBC with Diff; SPEC'M 12/15/16 10:21 Test: WHITE BLOOD COUNT; Value: 3.8; Range: 4.0-10.0; Abnormal: Below low normal; Units: K/mm3; Status: F Test: RED BLOOD COUNT; Value: 3.68; Range: 4.00-5.40; Abnormal: Below low normal; Units: M/mm3; Status: F Test: HEMOGLOBIN; Value: 11.4; Range: 12.0-16.0; Abnormal: Below low normal; Units: g/dl; Status: F Test: HEMATOCRIT; Value: 36.0; Range: 36.0-47.0; Units: %; Status: F Test: MEAN CORPUSCULAR VOLUME; Value: 97.7; Range: 80.0-96.0; Abnormal: Above high normal; Units: fl; Status: F Test: MEAN CORPUSCULAR HEMOGLOBIN; Value: 31.1; Range: 27.0-33.0; Units: pg; Status: F Test: MEAN CORPUSCULAR HGB CONC; Value: 31.8; Range: 32.0-36.5; Abnormal: Below low normal; Units: g/dl; Status: F Test: RED CELL DISTRIBUTION WIDTH; Value: 12.5; Range: 11.5-14.5; Units: %; Status: F Test: PLATELET COUNT, AUTOMATED; Value: 169; Range: 150-450; Units: k/mm3; Status: F Test: NEUTROPHILS %; Value: 64.8; Range: 36.0-66.0; Units: %; Status: F Test: LYMPH %; Value: 23.6; Range: 24.0-44.0; Abnormal: Below low normal; Units: %; Status: F Test: MONO %; Value: 6.0; Range: 0.0-5.0; Abnormal: Above high normal; Units: %; Status: F Test: EOS %; Value: 3.6; Range: 0.0-3.0; Abnormal: Above high normal; Units: %; Status: F Test: BASO %; Value: 0.6; Range: 0.0-1.0; Units: %; Status: F Test: LARGE UNSTAINED CELL %; Value: 1.4; Range: 0.0-4.0; Units: %; Status: F Test: NEUTROPHILS #; Value: 2.5; Range: 1.8-7.7; Units: K/mm3; Status: F Test: LYMPH #; Value: 0.9; Range: 1.5-4.5; Abnormal: Below low normal; Units: K/mm3; Status: F Test: MONO #; Value: 0.2; Range: 0.0-0.8; Units: K/mm3; Status: F Test: EOS #; Value: 0.1; Range: 0.0-0.50; Units: K/mm3; Status: F Test: BASO #; Value: 0.0; Range: 0.0-0.2; Units: K/mm3; Status: F Test: LARGE UNSTAINED CELL #; Value: 0.1; Range: 0.0-0.4; Units: K/mm3; Status: F Lab Order: MED Profile; [facility]' 12/15/16 10:21 Test: GLUCOSE, FASTING; Value: 143; Range: 83-110; Abnormal: Above high normal; Units: MG/DL; Status: F Test: BLOOD UREA NITROGEN; Value: 19; Range: 7-18; Abnormal: Above high normal; Units: MG/DL; Status: F Test: CREATININE FOR GFR; Value: 1.27; Range: 0.55-1.02; Abnormal: Above high normal; Units: MG/DL; Status: F Test: GLOMERULAR FILTRATION RATE; Value: 42.8; Range: >32; Status: F Test: SODIUM LEVEL; Value: 139; Range: 136-145; Units: MEQ/L; Status: F Test: POTASSIUM SERUM; Value: 4.1; Range: 3.5-5.1; Units: MEQ/L; Status: F Test: CHLORIDE LEVEL; Value: 106; Range: 98-107; Units: MEQ/L; Status: F Test: CARBON DIOXIDE LEVEL; Value: 26; Range: 21-32; Units: MEQ/L; Status: F Test: ANION GAP; Value: 7; Range: 8-16; Abnormal: Below low normal; Units: MEQ/L; Status: F Test: CALCIUM LEVEL; Value: 8.5; Range: 8.8-10.2; Abnormal: Below low normal; Units: MG/DL; Status: F Test Note: ; Units are mL/min/1.73 m2 Chronic Kidney Disease Staging per NKF: Stage I & II GFR >=60 Normal to Mildly Decreased Stage III GFR 30-59 Moderately Decreased Stage IV GFR 15-29 Severely Decreased Stage V GFR <15 Very Little GFR Left ESRD GFR <15 on GEM STONE CUTTER Radiology Order: EKG-ADULT Test: EKG-ADULT REASON FOR EXAMINATION: Syncope; Stationary ECG Study; [facility] - ED; ; Test Date: 2016-12-15; Pat Name: ADIN GOMEZ Department:; Room: -; Gender: F 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: 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; : 1935 Requested By: Cliff Briones; Order Number: [id number] Reading MD: Cliff Hebert; Measurements; Intervals [place]; Rate: 69 P:; ID: 0 QRS: 5; QRSD: 100 T: 29; QT: 435; QTc: 468; Interpretive Statements; SINUS RHYTHM WITH FIRST DEGREE AV BLOCK; PRWP; Electronically Signed On 12-16-2016 8:07:28 EST by Cliff Hebert; Radiology Order: CT Head Without Contrast Test: CT Head Without Contrast REASON FOR EXAMINATION: Trauma; CT HEAD WITHOUT CONTRAST:; ; HISTORY: Trauma.; ; COMPARISON: 08/18/2016.; ; Areas of decreased attenuation are present in the periventricular and subcortical; white matter. This represents small vessel ischemic disease. There is no; intraparenchymal hemorrhage, mass or midline shift. The ventricular system and; cortical sulci are dilated consistent with mild volume loss. There is no; extracerebral collection. There is no fracture. The visualized sinuses are; clear.; ; IMPRESSION:; ; 1. Small vessel ischemic disease.; ; 2. Mild volume loss.; ; ; Signed by; Parish Newman MD 12/15/2016 11:02 A; Outcome: 12:47 Discharge ordered by Provider. pc 13:13 Discharge Assessment: Patient awake, alert and oriented x 3. No cognitive and/or bcj functional deficits noted. Patient verbalized understanding of disposition instructions. patient administered narcotics - no. The following High Risk Discharge criteria are identified: None. Discharged to home ambulatory. Condition: stable. Discharge instructions given to patient, Instructed on discharge instructions, follow up and referral plans. Demonstrated understanding of instructions, Pt was receptive of discharge instructions/ teaching. CT Study completed. Property sent home with patient. 13:15 Patient left the ED. chito Signatures: Dispatcher [employer] EDMS Cliff Hebert MD MD pc Sleeman, Kacey, RN RN kcs Maggie Reddy, Comfort Advisor Unit lbd Jose Alberto West RN RN Delilah Chin, Reg Reg gb Adonay Mckenzie, Reg Reg lg Maegan De La CruzRN RN dsf Betina Gonzalez, Comfort Advisor Unit Shantel Duong Corrections: (The following items were deleted from the chart) 10:03 09:58 Cardiovascular: Capillary refill dsf dsf Chart Complete MTDD
== END 2016-12-15 13:15 | disposition home or self-care (01) ==
LOC: M ED 09:50
DX: R55 Syncope and collapse (principal); T44.6X5A Adverse effect of alpha-adrenoreceptor antagonists, initial encounter; N18.3 Chronic kidney disease, stage 3 (moderate); T36.8X5A Adverse effect of other systemic antibiotics, initial encounter; I12.9 Hypertensive chronic kidney disease with stage 1 through stage 4 chronic kidney disease, or unspecified chronic kidney disease; R56.9 Unspecified convulsions; Z87.442 Personal history of urinary calculi; Z79.899 Other long term (current) drug therapy; Z79.2 Long term (current) use of antibiotics

== ENCOUNTER 2016-12-28 09:39 | Emergency (ER) | payer MEDICARE ==
--- NOTE | 2016-12-28 11:14 | REP ---
SACRUM AND COCCYX: Three views of the sacrum and coccyx performed. There is irregularity of the sacrum anteriorly suggesting a nondisplaced fracture. There is no other evidence of acute fracture or dislocation. IMPRESSION: Possible sacral fracture. Signed by Bob Gayle MD 12/28/2016 04:56 P
--- NOTE | 2016-12-28 11:16 | REP ---
PELVIS: AP view of the pelvis is performed. There is no definite fracture or dislocation of the visualized osseous structures. There are degenerative changes at each hip joint, right greater than left, with joint space narrowing and subchondral sclerosis. There is spurring of the right femoral head and acetabulum. There is subchondral sclerosis and cystic changes in the right femoral head. IMPRESSION: Arthritic changes without evidence of acute fracture or dislocation. Signed by Bob Gayle MD 12/28/2016 04:57 P
--- NOTE | 2016-12-28 12:48 | REP ---
CT LUMBAR SPINE WITHOUT CONTRAST: HISTORY: Sacral fracture. There is no disc bulge or herniation at the L1-2 level. The L1 nerves exit the neural foramina without compression. A diffuse disc bulge is present at the L2-3 level. There is minimal compression of the thecal sac. The L2 nerves exit the neural foramina without compression. A diffuse disc bulge is present at the L3-4 level. There is hypertrophy of the posterior articulating facets. These findings produce mild central canal stenosis. The L3 nerves exit the neural foramina without compression. A diffuse disc bulge is present at the L4-5 level. There is minimal compression of the thecal sac. There is hypertrophy of the posterior articulating facets. The L4 nerves exit the neural foramina without compression. A diffuse disc bulge is present at the L5-S1 level. This abuts the S1 nerves. There is hypertrophy of the posterior articulating facets. The L5 nerves exit the neural foramina without compression. The L1-2 through L4-5 intervertebral discs are decreased in height consistent with disc degeneration. There is no subluxation. There is a fracture of the anterior sacrum at the S3 level. Impression: 1. Diffuse disc bulges at the L2-3 and L4-5 levels with minimal thecal sac compression. 2. Mild central canal stenosis at the L3-4 level secondary to disc bulge, ligamentous and facet hypertrophy. A 3. Diffuse disc bulge at the L5 S1 level. This abuts the S1 nerves. 4. Acute sacral fracture. Signed by Parish Newman MD 12/28/2016 01:08 P
--- NOTE | 2016-12-28 12:57 | EDDOCDS ---
Nurse's Notes [facility] Name: Mariya Gomez Age: 81 yrs Sex: Female : 1935 Arrival Date: 12/28/2016 Time: 09:39 Bed TR7 Private MD: Albina Christianson Diagnosis: Fracture of sacrum-anterior, non displaced Presentation: 12/28 09:44 Presenting complaint: Patient states: pt reports she was seen here last week for fall ead with syncope. Pt now c/o "I think I have a broken tailbone.". Adult Sepsis Screening: The patient does not have new or worsening altered mentation. Patient's respiratory rate is less than 22. Systolic blood pressure is greater than 100. Patient has a qSOFA score of 0- Negative Sepsis Screen. Suicide/Homicide risk assessment- the patient denies having any suicidal and/or homicidal ideations and does not present with any other emotional, behavioral or mental health complaints. Status: Patient is not a rn social services or dependent. Transition of care: patient was not received from another setting of care. 09:44 Acuity: VI Level 4 ead 09:44 Method Of Arrival: Walkin/Carried/Asstd ead Triage Assessment: 09:48 General: Appears in no apparent distress, comfortable, well nourished, well groomed, ead Behavior is appropriate for age, cooperative, pleasant. Pain: Location: buttocks Pain currently is 5 out of 10 on a pain scale. Neurological: Level of Consciousness is awake, alert, obeys commands, Oriented to person, place, time. Respiratory: Airway is patent Respiratory effort is even, unlabored. Derm: Skin is pink, warm & dry. Musculoskeletal: Reports pain in buttocks. Historical: - Allergies: no known allergies; - Home Meds: 1. Drisdol 50,000 unit Oral tab 1 cap once wkly Wednesdays 2. Keppra 1,000 mg Oral tab 1 tab every 12 hours 3. Xanax 0.5 mg Oral tab 1 tab 3 times per day as needed 4. atenolol 50 mg Oral tab 2 times per day 5. tramadol 50 mg Oral tab every 6 hours (Last dose: Unknown) 6. aspirin 81 mg Oral tab once daily - PMHx: compression fractures; Kidney stones; Hypertension; Stage 3 renal disease; Seizures; Encephalitis; - PSHx: urinary stents; Cholecystectomy; - Social history: Smoking status: Patient states former smoker of tobacco. No barriers to communication noted, The patient speaks fluent [place], Speaks appropriately for age. - Family history: Not pertinent. - : The pt / caregiver states he / she is not on anticoagulants. Home medication list is obtained from the patient, family members, [employer] import data. - Exposure Risk Screening:: None identified. Screenin:54 Screening information is obtained from the patient, family members. Fall risk: No risks ead identified. Assistance ADL's: requires no assistance with activities of daily living. Abuse/DV Screen: The patient / caregiver reports he/she is: not in a situation that causes fear, pain or injury. Nutritional screening: No deficits noted. home support is adequate. Assessment: 12:24 General: pt laying on the stretcher visiting with family awaiting test results. pt in dsf no distress at this time . 12:54 General: Appears in no apparent distress, comfortable, Behavior is appropriate for age, ead cooperative. Neurological: No deficits noted. Respiratory: Airway is patent Respiratory effort is even, unlabored. Derm: Skin is pink, warm & dry. Vital Signs: 09:42 BP 143 / 78; Pulse 70; Resp 18; Temp 97.1(TE); Pulse Ox 96% on R/A; Weight 70.31 kg; nb2 Height 5 ft. 3 in. (160.02 cm) (R); Pain 5/10; 12:54 BP 154 / 68; Pulse 60; Resp 16; Temp 97.0(T); Pulse Ox 98% on R/A; ead 09:42 Body Mass Index 27.46 (70.31 kg, 160.02 cm) nb2 Vitals: 09:42 Log In Time: December 28, 2016 at 09:35. nb2 ED Course: 09:41 Patient visited by Shantel Cassidy. nb2 09:41 Albina Christianson is Private Physician. nb2 09:41 Patient moved to Waiting nb2 09:43 Patient visited by Shantel Cassidy. nb2 09:46 Triage Initiated ead 09:50 Patient moved to Triage 2 [facility] 09:51 [facility] ar2 09:51 Gilberto Ashley MD is Attending Physician. ar2 09:51 Patient visited by Francisco Agee PA-C. ar2 10:08 [facility] Payment Agreement was scanned into [employer] and attached to record. mm15 10:20 Patient moved to TR7 ead 10:23 Patient moved to PD2 / 27 ead 10:46 Warm blanket given. Pillow given. ar3 10:47 Patient visited by Jeri Aguirre PCA. ar3 11:35 Sacrum/coccyx Returned. EDMS 11:35 Pelvis Returned. EDMS 12:25 Patient visited by Jeri Aguirre PCA. ar3 12:44 Jose Alberto Gillis is Referral Physician. ar2 12:54 Patient moved to TR7 ead 12:54 The patient / caregiver is instructed regarding the plan of care and ED course. ead 12:54 No IV's were initiated during this patient's visit. No procedures done that require ead assistance. Order Results: Radiology Order: Pelvis Test: Pelvis REASON FOR EXAMINATION: trauma, ischeium; ; PELVIS:; ; AP view of the pelvis is performed.; ; There is no definite fracture or dislocation of the visualized osseous; structures. There are degenerative changes at each hip joint, right greater than; left, with joint space narrowing and subchondral sclerosis. There is spurring of; the right femoral head and acetabulum. There is subchondral sclerosis and cystic; changes in the right femoral head.; ; IMPRESSION:; Arthritic changes without evidence of acute fracture or dislocation.; ; ; ; Unreviewed; Radiology Order: Sacrum/coccyx Test: Sacrum/coccyx REASON FOR EXAMINATION: Trauma; ; SACRUM AND COCCYX:; ; Three views of the sacrum and coccyx performed.; ; There is irregularity of the sacrum anteriorly suggesting a nondisplaced; fracture. There is no other evidence of acute fracture or dislocation.; ; IMPRESSION:; Possible sacral fracture.; ; Unreviewed; Outcome: 12:45 Discharge ordered by Provider. ar2 12:54 Discharge Assessment: Patient awake and alert. obeys commands, Oriented to person, ead place and time. patient administered narcotics - no. The following High Risk Discharge criteria are identified: None. Discharged to home via wheelchair, with family. Condition: unchanged. Discharge instructions given to patient, family, Instructed on discharge instructions, follow up and referral plans. Demonstrated understanding of instructions, Pt was receptive of discharge instructions/ teaching. CT Study completed. Property sent home with patient. 12:56 Patient left the ED. ernesto Signatures: Dispatcher [employer] EDMS Priya Avendaño, RN RN Francisco Rodrigez, PA-C PA-C ar2 Jeri Aguirre, MANAGER HOME HEALTHCARE MANAGER HOME HEALTHCARE ar3 Maegan De La Cruz,RN RN Owen Calvin mm15 June CantrellRN RN Shantel Whiteside nb2 MTDD
--- NOTE | 2016-12-28 12:57 | EDDOCDS ---
Physician Documentation [facility] Name: Mariya Gomez Age: 81 yrs Sex: Female : 1935 Arrival Date: 12/28/2016 Time: 09:39 Bed TR7 Private MD: Albina Christianson Disposition: 12/28/16 12:45 Discharged to Home/Self Care. Impression: Fracture of sacrum - anterior, non displaced. - Condition is Stable. - Medication Reconciliation, Local Pharmacy Hours form. - Follow up: Jose Alberto Gillis; When: Call to arrange an appointment; Reason: Recheck today's complaints, Continuance of care. Follow up: Emergency Department; When: As needed; Reason: Worsening of conditions. - Problem is new. - Symptoms are unchanged. - Notes: continue ultram (tramadol) and/or tylenol as needed for pain relief. gentle activity as tolerated. use cane or walker for assitance. call orthopedic office for follow up appointment. Historical: - Allergies: no known allergies; - Home Meds: 1. Drisdol 50,000 unit Oral tab 1 cap once wkly Wednesdays 2. Keppra 1,000 mg Oral tab 1 tab every 12 hours 3. Xanax 0.5 mg Oral tab 1 tab 3 times per day as needed 4. atenolol 50 mg Oral tab 2 times per day 5. tramadol 50 mg Oral tab every 6 hours (Last dose: Unknown) 6. aspirin 81 mg Oral tab once daily - PMHx: compression fractures; Kidney stones; Hypertension; Stage 3 renal disease; Seizures; Encephalitis; - PSHx: urinary stents; Cholecystectomy; - Social history: Smoking status: Patient states former smoker of tobacco. No barriers to communication noted, The patient speaks fluent [place], Speaks appropriately for age. - Family history: Not pertinent. - : The pt / caregiver states he / she is not on anticoagulants. Home medication list is obtained from the patient, family members, [employer] import data. - Exposure Risk Screening:: None identified. Vital Signs: 12/28 09:42 BP 143 / 78; Pulse 70; Resp 18; Temp 97.1(TE); Pulse Ox 96% on R/A; Weight 70.31 kg / nb2 155.01 lbs; Height 5 ft. 3 in. (160.02 cm) (R); Pain 5/10; 12:54 BP 154 / 68; Pulse 60; Resp 16; Temp 97.0(T); Pulse Ox 98% on R/A; ead 09:42 Body Mass Index 27.46 (70.31 kg, 160.02 cm) nb2 MDM: 10:01 Pelvis Ordered. EDMS 10:01 Sacrum/coccyx Ordered. EDMS 10:07 Financial registration complete. mm15 10:08 [facility] Payment Agreement was scanned into [employer] and attached to record. mm15 11:02 CT Spine, Lumbar W/o Contrast Ordered. EDMS Signatures: Dispatcher [employer] EDMS Francisco Agee PA-C PA-C ar2 Owen Chen mm15 June Cantrell,RN RN ead The chart was reviewed and I authenticate all verbal orders and agree with the evaluation and treatment provided.Attachments: 10:08 [facility] Payment Agreement mm15 MTDD
--- NOTE | 2016-12-30 13:57 | EDDOCDS ---
Physician Documentation [facility] Name: Mariya Gomez Age: 81 yrs Sex: Female : 1935 Arrival Date: 12/28/2016 Time: 09:39 Bed TR7 Private MD: Albina Christianson Disposition: 12/28/16 12:45 Discharged to Home/Self Care. Impression: Fracture of sacrum - anterior, non displaced. - Condition is Stable. - Medication Reconciliation, Local Pharmacy Hours form. - Follow up: Jose Alberto Gillis; When: Call to arrange an appointment; Reason: Recheck today's complaints, Continuance of care. Follow up: Emergency Department; When: As needed; Reason: Worsening of conditions. - Problem is new. - Symptoms are unchanged. - Notes: continue ultram (tramadol) and/or tylenol as needed for pain relief. gentle activity as tolerated. use cane or walker for assitance. call orthopedic office for follow up appointment. Historical: - Allergies: no known allergies; - Home Meds: 1. Drisdol 50,000 unit Oral tab 1 cap once wkly Wednesdays 2. Keppra 1,000 mg Oral tab 1 tab every 12 hours 3. Xanax 0.5 mg Oral tab 1 tab 3 times per day as needed 4. atenolol 50 mg Oral tab 2 times per day 5. tramadol 50 mg Oral tab every 6 hours (Last dose: Unknown) 6. aspirin 81 mg Oral tab once daily - PMHx: compression fractures; Kidney stones; Hypertension; Stage 3 renal disease; Seizures; Encephalitis; - PSHx: urinary stents; Cholecystectomy; - Social history: Smoking status: Patient states former smoker of tobacco. No barriers to communication noted, The patient speaks fluent Trinidadian, Speaks appropriately for age. - Family history: Not pertinent. - : The pt / caregiver states he / she is not on anticoagulants. Home medication list is obtained from the patient, family members, [employer] import data. - Exposure Risk Screening:: None identified. Vital Signs: 12/28 09:42 BP 143 / 78; Pulse 70; Resp 18; Temp 97.1(TE); Pulse Ox 96% on R/A; Weight 70.31 kg / nb2 155.01 lbs; Height 5 ft. 3 in. (160.02 cm) (R); Pain 5/10; 12:54 BP 154 / 68; Pulse 60; Resp 16; Temp 97.0(T); Pulse Ox 98% on R/A; ead 09:42 Body Mass Index 27.46 (70.31 kg, 160.02 cm) nb2 MDM: 10:01 Pelvis Ordered. EDMS 10:01 Sacrum/coccyx Ordered. EDMS 10:07 Financial registration complete. mm15 10:08 [facility] Payment Agreement was scanned into [employer] and attached to record. mm15 11:02 CT Spine, Lumbar W/o Contrast Ordered. EDMS Signatures: Dispatcher [employer] EDMS Francisco Agee PA-C PA-C ar2 Owen Chen mm15 June Cantrell,RN RN ead The chart was reviewed and I authenticate all verbal orders and agree with the evaluation and treatment provided.Attachments: 10:08 [facility] Payment Agreement mm15 Chart Complete MTDD
--- NOTE | 2016-12-30 13:57 | EDDOCDS ---
Nurse's Notes [facility] Name: Mariya Gomez Age: 81 yrs Sex: Female : 1935 Arrival Date: 12/28/2016 Time: 09:39 Bed TR7 Private MD: Albina Christianson Diagnosis: Fracture of sacrum-anterior, non displaced Presentation: 12/28 09:44 Presenting complaint: Patient states: pt reports she was seen here last week for fall ead with syncope. Pt now c/o "I think I have a broken tailbone.". Adult Sepsis Screening: The patient does not have new or worsening altered mentation. Patient's respiratory rate is less than 22. Systolic blood pressure is greater than 100. Patient has a qSOFA score of 0- Negative Sepsis Screen. Suicide/Homicide risk assessment- the patient denies having any suicidal and/or homicidal ideations and does not present with any other emotional, behavioral or mental health complaints. Status: Patient is not a relocation services specialist or dependent. Transition of care: patient was not received from another setting of care. 09:44 Acuity: VI Level 4 ead 09:44 Method Of Arrival: Walkin/Carried/Asstd ead Triage Assessment: 09:48 General: Appears in no apparent distress, comfortable, well nourished, well groomed, ead Behavior is appropriate for age, cooperative, pleasant. Pain: Location: buttocks Pain currently is 5 out of 10 on a pain scale. Neurological: Level of Consciousness is awake, alert, obeys commands, Oriented to person, place, time. Respiratory: Airway is patent Respiratory effort is even, unlabored. Derm: Skin is pink, warm & dry. Musculoskeletal: Reports pain in buttocks. Historical: - Allergies: no known allergies; - Home Meds: 1. Drisdol 50,000 unit Oral tab 1 cap once wkly Wednesdays 2. Keppra 1,000 mg Oral tab 1 tab every 12 hours 3. Xanax 0.5 mg Oral tab 1 tab 3 times per day as needed 4. atenolol 50 mg Oral tab 2 times per day 5. tramadol 50 mg Oral tab every 6 hours (Last dose: Unknown) 6. aspirin 81 mg Oral tab once daily - PMHx: compression fractures; Kidney stones; Hypertension; Stage 3 renal disease; Seizures; Encephalitis; - PSHx: urinary stents; Cholecystectomy; - Social history: Smoking status: Patient states former smoker of tobacco. No barriers to communication noted, The patient speaks fluent Libyan, Speaks appropriately for age. - Family history: Not pertinent. - : The pt / caregiver states he / she is not on anticoagulants. Home medication list is obtained from the patient, family members, [employer] import data. - Exposure Risk Screening:: None identified. Screenin:54 Screening information is obtained from the patient, family members. Fall risk: No risks ead identified. Assistance ADL's: requires no assistance with activities of daily living. Abuse/DV Screen: The patient / caregiver reports he/she is: not in a situation that causes fear, pain or injury. Nutritional screening: No deficits noted. home support is adequate. Assessment: 12:24 General: pt laying on the stretcher visiting with family awaiting test results. pt in dsf no distress at this time . 12:54 General: Appears in no apparent distress, comfortable, Behavior is appropriate for age, ead cooperative. Neurological: No deficits noted. Respiratory: Airway is patent Respiratory effort is even, unlabored. Derm: Skin is pink, warm & dry. Vital Signs: 09:42 BP 143 / 78; Pulse 70; Resp 18; Temp 97.1(TE); Pulse Ox 96% on R/A; Weight 70.31 kg; nb2 Height 5 ft. 3 in. (160.02 cm) (R); Pain 5/10; 12:54 BP 154 / 68; Pulse 60; Resp 16; Temp 97.0(T); Pulse Ox 98% on R/A; ead 09:42 Body Mass Index 27.46 (70.31 kg, 160.02 cm) nb2 Vitals: 09:42 Log In Time: December 28, 2016 at 09:35. nb2 ED Course: 09:41 Patient visited by Shantel Cassidy. nb2 09:41 Albina Christianson is Private Physician. nb2 09:41 Patient moved to Waiting nb2 09:43 Patient visited by Shantel Cassidy. nb2 09:46 Triage Initiated ead 09:50 Patient moved to Triage 2 [facility] 09:51 Francisco Agee PA-C [facility]. ar2 09:51 Gilberto Ashley MD is Attending Physician. ar2 09:51 Patient visited by Francisco Agee PA-C. ar2 10:08 [facility] Payment Agreement was scanned into [employer] and attached to record. mm15 10:20 Patient moved to TR7 ead 10:23 Patient moved to PD2 / ead 10:46 Warm blanket given. Pillow given. ar3 10:47 Patient visited by Jeri Aguirre PCA. ar3 11:35 Sacrum/coccyx Returned. EDMS 11:35 Pelvis Returned. EDMS 12:25 Patient visited by Jeri Aguirre PCA. ar3 12:44 Jose Alberto Gillis is Referral Physician. ar2 12:54 Patient moved to TR7 ead 12:54 The patient / caregiver is instructed regarding the plan of care and ED course. ead 12:54 No IV's were initiated during this patient's visit. No procedures done that require ead assistance. 13:14 CT Spine, Lumbar W/o Contrast Returned. EDMS Order Results: Radiology Order: Pelvis Test: Pelvis REASON FOR EXAMINATION: trauma, ischeium; PELVIS:; ; AP view of the pelvis is performed.; ; There is no definite fracture or dislocation of the visualized osseous; structures. There are degenerative changes at each hip joint, right greater than; left, with joint space narrowing and subchondral sclerosis. There is spurring of; the right femoral head and acetabulum. There is subchondral sclerosis and cystic; changes in the right femoral head.; ; IMPRESSION:; ; Arthritic changes without evidence of acute fracture or dislocation.; ; ; Signed by; Bob Gayle MD 12/28/2016 04:57 P; Radiology Order: Sacrum/coccyx Test: Sacrum/coccyx REASON FOR EXAMINATION: Trauma; SACRUM AND COCCYX:; ; Three views of the sacrum and coccyx performed.; ; There is irregularity of the sacrum anteriorly suggesting a nondisplaced; fracture. There is no other evidence of acute fracture or dislocation.; ; IMPRESSION:; ; Possible sacral fracture.; ; ; Signed by; Bob Gayle MD 12/28/2016 04:56 P; Radiology Order: CT Spine, Lumbar W/o Contrast Test: CT Spine, Lumbar W/o Contrast REASON FOR EXAMINATION: SACRUM; CT LUMBAR SPINE WITHOUT CONTRAST:; ; HISTORY: Sacral fracture.; ; There is no disc bulge or herniation at the L1-2 level. The L1 nerves exit the; neural foramina without compression.; ; A diffuse disc bulge is present at the L2-3 level. There is minimal compression; of the thecal sac. The L2 nerves exit the neural foramina without compression.; ; A diffuse disc bulge is present at the L3-4 level. There is hypertrophy of the; posterior articulating facets. These findings produce mild central canal; stenosis. The L3 nerves exit the neural foramina without compression.; ; A diffuse disc bulge is present at the L4-5 level. There is minimal compression; of the thecal sac. There is hypertrophy of the posterior articulating facets. The; L4 nerves exit the neural foramina without compression.; ; A diffuse disc bulge is present at the L5-S1 level. This abuts the S1 nerves.; There is hypertrophy of the posterior articulating facets. The L5 nerves exit the; neural foramina without compression.; ; The L1-2 through L4-5 intervertebral discs are decreased in height consistent; with disc degeneration. There is no subluxation. There is a fracture of the; anterior sacrum at the S3 level.; ; Impression:; 1. Diffuse disc bulges at the L2-3 and L4-5 levels with minimal thecal sac; compression.; 2. Mild central canal stenosis at the L3-4 level secondary to disc bulge,; ligamentous and facet hypertrophy. A; 3. Diffuse disc bulge at the L5 S1 level. This abuts the S1 nerves.; 4. Acute sacral fracture.; ; ; Signed by; Parish Newman MD 12/28/2016 01:08 P; Outcome: 12:45 Discharge ordered by Provider. ar2 12:54 Discharge Assessment: Patient awake and alert. obeys commands, Oriented to person, ead place and time. patient administered narcotics - no. The following High Risk Discharge criteria are identified: None. Discharged to home via wheelchair, with family. Condition: unchanged. Discharge instructions given to patient, family, Instructed on discharge instructions, follow up and referral plans. Demonstrated understanding of instructions, Pt was receptive of discharge instructions/ teaching. CT Study completed. Property sent home with patient. 12:56 Patient left the ED. ead Signatures: Dispatcher [facility] Priya Avendaño RN RN kpj Robertshaw, Aaron, PA-C PA-C ar2 Jeri Aguirre, DIE MAKER [employer]CH [employer]AMPING DIE MAKER [employer]AMPING ar3 Maegan De La Cruz,RN RN Owen Calvin mm15 June Cantrell,RN RN Shantel Whiteside nb2 Chart Complete MTDD
--- NOTE | 2016-12-30 13:57 | EDDOCDS ---
Physician Documentation [facility] Name: Mariya Gomez Age: 81 yrs Sex: Female : 1935 Arrival Date: 12/28/2016 Time: 09:39 Bed TR7 Private MD: Albina Christianson Disposition: 12/28/16 12:45 Discharged to Home/Self Care. Impression: Fracture of sacrum - anterior, non displaced. - Condition is Stable. - Medication Reconciliation, Local Pharmacy Hours form. - Follow up: Jose Alberto Gillis; When: Call to arrange an appointment; Reason: Recheck today's complaints, Continuance of care. Follow up: Emergency Department; When: As needed; Reason: Worsening of conditions. - Problem is new. - Symptoms are unchanged. - Notes: continue ultram (tramadol) and/or tylenol as needed for pain relief. gentle activity as tolerated. use cane or walker for assitance. call orthopedic office for follow up appointment. Historical: - Allergies: no known allergies; - Home Meds: 1. Drisdol 50,000 unit Oral tab 1 cap once wkly Wednesdays 2. Keppra 1,000 mg Oral tab 1 tab every 12 hours 3. Xanax 0.5 mg Oral tab 1 tab 3 times per day as needed 4. atenolol 50 mg Oral tab 2 times per day 5. tramadol 50 mg Oral tab every 6 hours (Last dose: Unknown) 6. aspirin 81 mg Oral tab once daily - PMHx: compression fractures; Kidney stones; Hypertension; Stage 3 renal disease; Seizures; Encephalitis; - PSHx: urinary stents; Cholecystectomy; - Social history: Smoking status: Patient states former smoker of tobacco. No barriers to communication noted, The patient speaks fluent [place], Speaks appropriately for age. - Family history: Not pertinent. - : The pt / caregiver states he / she is not on anticoagulants. Home medication list is obtained from the patient, family members, [employer] import data. - Exposure Risk Screening:: None identified. Vital Signs: 12/28 09:42 BP 143 / 78; Pulse 70; Resp 18; Temp 97.1(TE); Pulse Ox 96% on R/A; Weight 70.31 kg / nb2 155.01 lbs; Height 5 ft. 3 in. (160.02 cm) (R); Pain 5/10; 12:54 BP 154 / 68; Pulse 60; Resp 16; Temp 97.0(T); Pulse Ox 98% on R/A; ead 09:42 Body Mass Index 27.46 (70.31 kg, 160.02 cm) nb2 MDM: 10:01 Pelvis Ordered. EDMS 10:01 Sacrum/coccyx Ordered. EDMS 10:07 Financial registration complete. mm15 10:08 ON LICENSE OF [facility] Payment Agreement was scanned into [employer] and attached to record. mm15 11:02 CT Spine, Lumbar W/o Contrast Ordered. EDMS Signatures: Dispatcher [employer] EDMS Francisco Agee PA-C PA-C ar2 Owen Chen mm15 June Cantrell,RN RN ead The chart was reviewed and I authenticate all verbal orders and agree with the evaluation and treatment provided.Attachments: 10:08 [facility] OF [facility] Payment Agreement mm15 Chart Complete MTDD
== END 2016-12-28 12:56 | disposition home or self-care (01) ==
LOC: M ED 09:39
DX: S32.10XA Unspecified fracture of sacrum, initial encounter for closed fracture (principal); I12.9 Hypertensive chronic kidney disease with stage 1 through stage 4 chronic kidney disease, or unspecified chronic kidney disease; N18.3 Chronic kidney disease, stage 3 (moderate); R56.9 Unspecified convulsions; Z87.891 Personal history of nicotine dependence; Z79.82 Long term (current) use of aspirin; Z79.899 Other long term (current) drug therapy; W19.XXXA Unspecified fall, initial encounter; Y92.89 Other specified places as the place of occurrence of the external cause; Y93.89 Activity, other specified; Y99.9 Unspecified external cause status

== ENCOUNTER → 2017-09-27 | Outpatient (CLI) | payer MEDICARE ==
[~2017-09-27] MED LIST changes: +ASPI81TA85 PO; +CIPR-249 PO; +KEPP10002 PO; +METO1TAB32 PO; +PERC5TAB12 PO; +TRAM50TA2 PO; +XANA0.5T PO; +ZOFR4TAB3 PO
--- NOTE | 2017-09-27 16:24 | REP ---
Clinical: Ureteral stone. Comparison: 12/28/2016. Findings: The bowel gas pattern is nonspecific. Evaluation of the urinary tract system is severely limited due to technique and overlying bowel gas. The patient is status post cholecystectomy. Calcifications in the pelvis are similar to prior examination and likely represent phleboliths. The previously noted 5 mm obstructing left distal ureteral stone on CT dated 08/31/2017 cannot definitively be corroborated. Skeletal structures are stable. Impression: Nonspecific findings as described above. Previously noted left obstructing ureteral calculus cannot be corroborated by current examination. Signed by Killian Darling MD 09/27/2017 04:15 P
== END ==
LOC: M SMT 15:40
PROVIDERS: ATTEND Nurse Practitioner Family
DX: N20.1 Calculus of ureter (principal); Z90.49 Acquired absence of other specified parts of digestive tract
CPT/HCPCS: 74000; 81001; 87086; G0463

== ENCOUNTER → 2017-10-05 | Outpatient (CLI) | payer MEDICARE ==
--- NOTE | 2017-10-05 15:56 | REP ---
RENAL ULTRASOUND: HISTORY: Hematuria. COMPARISON: 03/29/2010 The right kidney is isogenic. The left kidney is normal in echogenicity. The right kidney measures 4 cm in transverse x 4 cm in AP x 9.1 cm in cephalocaudal dimensions. The left kidney measures 3.4 cm in transverse x 5.8 cm in AP x 10.4 cm in cephalocaudal dimensions. There is mild right hydronephrosis. There is mild to moderate left hydronephrosis. A cyst is present in the mid right kidney. The cyst measures 4.5 mm in maximum dimension. There is no mass. There is slight distension of the urinary bladder. Pre void volume is 272 cubic cm. Postvoid residual is 69 cubic cm. IMPRESSION: 1. There is mild right and mild to moderate left hydronephrosis. 2. Small 4.5 mm right renal cyst. Signed by Parish Newman MD 10/05/2017 03:57 P
== END ==
LOC: M RAD 11:51
PROVIDERS: ATTEND Nurse Practitioner Family
DX: N20.1 Calculus of ureter (principal)

== ENCOUNTER → 2017-10-07 | Outpatient (CLI) | payer MEDICARE ==
[2017-10-07 19:14] LABS: CALCIUM LEVEL 8.9 MG/DL (8.8-10.2); CREATININE FOR GFR 1.02 MG/DL (0.55-1.02); POTASSIUM SERUM 4.4 MEQ/L (3.5-5.1)
== END ==
LOC: M SMT 11:44
PROVIDERS: ATTEND Nurse Practitioner Family
DX: N13.30 Unspecified hydronephrosis (principal); N28.1 Cyst of kidney, acquired
CPT/HCPCS: 36415; 80048; G0463

== ENCOUNTER → 2017-10-15 | Outpatient (CLI) | payer MEDICARE ==
[~2017-10-15] MED LIST changes: +ISOVUE-370 76% 100ML VIAL (Q9967) As Ordered ONE
--- NOTE | 2017-10-15 13:22 | REP ---
CT of the abdomen pelvis without IV and oral contrast: Comparison is 08/31/2017. There is a 6 x 8 mm left ureteral calculus in the left distal left ureter at the UVJ with marked left hydroureter and hydronephrosis. This is unchanged from the comparison study. There is no perinephric stranding or pararenal fluid collection. There are no renal calculi on the left on the right. There is no right hydronephrosis or ureteral calculus. The visualized lung chow are unremarkable except for minor parenchymal scar inferiorly in the lingula. This is unchanged. The unenhanced hepatic parenchyma is unremarkable. There are surgical clips in the gallbladder fossa. The pancreas, spleen, adrenals and abdominal aorta are unchanged. There is calcified atheroma in the aorta. No aneurysm. There is no bowel distension. Mesentery is unremarkable. There is diverticulosis without diverticulitis of the sigmoid colon. This is unchanged. There are calcifications in the myometrium of the uterus compatible with degenerating fibroids. This is unchanged. The adnexa are unremarkable. There is no ascites or adenopathy. Impression: Chronic 6 x 8 mm distal left ureteral calculus at the UVJ with chronic left. hydroureter and hydronephrosis. However, there is no perinephric stranding or perinephric fluid collection. Diverticulosis without diverticulitis involving sigmoid colon. Signed by Bob Ruffin MD 10/15/2017 01:14 P
== END ==
LOC: M RAD 11:05
PROVIDERS: ATTEND Nurse Practitioner Family
DX: N13.30 Unspecified hydronephrosis (principal); N28.1 Cyst of kidney, acquired; N13.4 Hydroureter; K57.30 Diverticulosis of large intestine without perforation or abscess without bleeding
CPT/HCPCS: 74178; Q9967

== ENCOUNTER → 2017-10-17 | Outpatient (REF) | payer MEDICARE ==
[~2017-10-17] MED LIST changes: -ISOVUE-370 76% 100ML VIAL (Q9967) As Ordered ONE
== END ==
LOC: M SFHCLERA 14:28
PROVIDERS: ATTEND Nurse Practitioner Family
DX: R30.0 Dysuria (principal)

== ENCOUNTER 2017-10-22 15:00 | Emergency (ER) | payer MEDICARE ==
[~2017-10-22] VITALS: Ht 162.6 cm; Wt 68.2 kg
--- NOTE | 2017-10-22 15:42 | REP ---
Clinical: Worsening ataxia. Comparison: 12/15/2016 . Findings: Age-related atrophy, periventricular leukomalacia and microvascular ischemic changes are appreciated. The ventricles and sulci are symmetric. Gayle-white differentiation is maintained. There is no evidence for acute intracranial hemorrhage, mass/mass effect, pathology or infarction. No extra-axial fluid collection. Calvarium is intact. Paranasal sinuses and mastoid air cells are clear. Impression: Age related atrophy and microvascular ischemic changes. No acute intracranial hemorrhage, infarction, or mass/mass effect. Signed by Killian Darling MD 10/22/2017 03:34 P
[2017-10-22 16:11] LABS: IMMATURE GRANULOCYTE % 0.3 % (0-0); LYMPH # 1.3 10^3/uL (1.5-4.5); LYMPH % 32.7 % (24.0-44.0); MEAN CORPUSCULAR HEMOGLOBIN 30.8 pg (27.0-33.0); MEAN CORPUSCULAR VOLUME 96.1 fl (80.0-96.0); MONO # 0.4 10^3/uL (0.0-0.8); MONO % 8.9 % (0.0-5.0); NEUTROPHILS # 2.2 10^3/uL (1.8-7.7); NEUTROPHILS % 56.1 % (36.0-66.0); PLATELET COUNT, AUTOMATED 221 10^3/uL (150-450); RED CELL DISTRIBUTION WIDTH 12.3 % (11.5-14.5)
[2017-10-22 16:34] LABS: CALCIUM LEVEL 8.8 MG/DL (8.8-10.2); CREATININE FOR GFR 1.55 MG/DL (0.55-1.02); GLOMERULAR FILTRATION RATE 33.9 (>32); INR 0.99; POTASSIUM SERUM 4.7 MEQ/L (3.5-5.1)
--- NOTE | 2017-10-22 17:13 | ECGEPIP ---
Stationary ECG Study 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
[2017-10-22 18:12] VITALS: BP 170/81
== END 2017-10-22 19:31 | disposition home or self-care (01) ==
LOC: EDBD 15:00 → M ED 15:00
DX: R53.1 Weakness (principal); I10 Essential (primary) hypertension; G40.909 Epilepsy, unspecified, not intractable, without status epilepticus; Z87.442 Personal history of urinary calculi; Z79.82 Long term (current) use of aspirin; Z79.899 Other long term (current) drug therapy

== ENCOUNTER 2017-11-26 06:00 | Day surgery (SDC) | payer MEDICARE ==
[2017-11-26] MEDS ORDERED: LIDOCAINE 1% MDV 20ML VIAL As Ordered (06:12)
[2017-11-26] MEDS: LR 1,000 ML IV (06:55)
[2017-11-26] MEDS ORDERED: LIDOCAINE 2% INJ 100 MG/5 ML SDV (FOR ANES.) As Ordered (07:14)
[2017-11-26] MEDS ORDERED: MIDAZOLAM INJ 2 MG/2 ML VIAL (J2250) As Ordered (07:14)
[2017-11-26] MEDS ORDERED: ONDANSETRON 4MG/2ML VIAL (J2405) As Ordered (07:14)
[2017-11-26] MEDS ORDERED: KETOROLAC 60 MG/2 ML VIAL (J1885) As Ordered (07:14)
[2017-11-26] MEDS ORDERED: PROPOFOL 200 MG/20 ML VIAL As Ordered (07:14)
[2017-11-26] MEDS ORDERED: fentaNYL 100 MCG/2 ML INJECTION (J3010) As Ordered (07:14)
[2017-11-26] MEDS ORDERED: dexameTHASONE 4 MG/ML 1ML VIAL (J1100) As Ordered (07:14)
[2017-11-26] MEDS: CONRAY-60 60% 50ML VIAL (Q9961) As Ordered (07:48)
[2017-11-26] MEDS ORDERED: PERCOCET 5MG/325MG TAB PO ×2 (09:00)
[2017-11-26] MEDS ORDERED: fentaNYL 100 MCG/2 ML INJECTION (J3010) IV (09:00)
[2017-11-26] MEDS ORDERED: LR 1,000 ML IV (09:00)
[2017-11-26] MEDS ORDERED: ONDANSETRON 4MG/2ML VIAL (J2405) IV (09:00)
== END 2017-11-26 09:25 | disposition home or self-care (01) ==
LOC: M SDC 06:00
DX: N20.1 Calculus of ureter (principal); I10 Essential (primary) hypertension; G04.90 Encephalitis and encephalomyelitis, unspecified; G40.009 Localization-related (focal) (partial) idiopathic epilepsy and epileptic syndromes with seizures of localized onset, not intractable, without status epilepticus; M19.90 Unspecified osteoarthritis, unspecified site; R32 Unspecified urinary incontinence; M81.0 Age-related osteoporosis without current pathological fracture; F41.9 Anxiety disorder, unspecified; F34.1 Dysthymic disorder; Z88.1 Allergy status to other antibiotic agents; Z88.8 Allergy status to other drugs, medicaments and biological substances; Z79.899 Other long term (current) drug therapy; Z79.82 Long term (current) use of aspirin; Z87.81 Personal history of (healed) traumatic fracture; Z78.0 Asymptomatic menopausal state; Z87.440 Personal history of urinary (tract) infections; Z87.891 Personal history of nicotine dependence
CPT/HCPCS: 52356

== ENCOUNTER → 2018-01-17 | Outpatient (CLI) | payer MEDICARE | LOC: M LRY 15:50 | DX: M25.552 Pain in left hip (principal); M54.5 Low back pain | CPT/HCPCS: 72110 ==

== ENCOUNTER 2018-04-04 11:47 | Inpatient (IN) | payer MEDICARE ==
[2018-04-04] MEDS: METOPROLOL TART 25 MG TABLET PO ×2 (13:45→21:14)
[2018-04-04 13:53] LABS: BASO % 0.6 % (0.0-1.0); EOS # 0.1 10^3/uL (0.0-0.50); EOS % 1.4 % (0.0-3.0); HEMOGLOBIN 12.8 g/dl (12.0-15.5); LYMPH # 1.3 10^3/uL (1.5-4.5); LYMPH % 27.3 % (24.0-44.0); MEAN CORPUSCULAR HEMOGLOBIN 31.3 pg (27.0-33.0); MEAN CORPUSCULAR HGB CONC 32.8 g/dl (32.0-36.5); MEAN CORPUSCULAR VOLUME 95.4 fl (80.0-96.0); MONO # 0.6 10^3/uL (0.0-0.8); MONO % 11.6 % (0.0-5.0); NEUTROPHILS # 2.9 10^3/uL (1.8-7.7); NEUTROPHILS % 59.1 % (36.0-66.0); PLATELET COUNT, AUTOMATED 198 10^3/uL (150-450); RED BLOOD COUNT 4.09 10^6/uL (4.00-5.40); RED CELL DISTRIBUTION WIDTH 12.1 % (11.5-14.5); WHITE BLOOD COUNT 4.8 10^3/uL (4.0-10.0)
[2018-04-04 14:09] LABS: KETONE, URINE AUTO RFX NEGATIVE (NEGATIVE); LEUKOCYTE ESTERASE UR AUTO RFX NEGATIVE (NEGATIVE); NITRITE, URINE AUTO RFX NEGATIVE (NEGATIVE); RBC, URINE AUTO RFX 3 /HPF (0-3); SPECIFIC GRAVITY UR AUTO RFX 1.009 (1.002-1.035); SQUAM EPITHELIAL CELL UR AURFX 0 /HPF (0-6); WBC, URINE AUTO RFX 0 /HPF (0-3)
[2018-04-04 14:20] LABS: ALBUMIN 3.6 GM/DL (3.2-5.2); ALBUMIN/GLOBULIN RATIO 0.84 (1.00-1.93); ALKALINE PHOSPHATASE 70 U/L (45-117); ALT/SGPT 27 U/L (12-78); ANION GAP 7 MEQ/L (8-16); AST/SGOT 19 U/L (7-37); BILIRUBIN,DIRECT < 0.1 MG/DL (0.0-0.2); BILIRUBIN,TOTAL 0.2 MG/DL (0.2-1.0); BLOOD UREA NITROGEN 20 MG/DL (7-18); CALCIUM LEVEL 8.8 MG/DL (8.8-10.2); CARBON DIOXIDE LEVEL 26 MEQ/L (21-32); CHLORIDE LEVEL 105 MEQ/L (98-107); CPK CREATINE PHOSPHOKINASE 59 U/L (26-192); CREATININE FOR GFR 1.12 MG/DL (0.55-1.30); FREE T4 0.93 NG/DL (0.76-1.46); GLOMERULAR FILTRATION RATE 49.2 (>32); GLUCOSE, FASTING 111 MG/DL (70-100); MAGNESIUM LEVEL 2.3 MG/DL (1.8-2.4); POTASSIUM SERUM 4.3 MEQ/L (3.5-5.1); SODIUM LEVEL 138 MEQ/L (136-145); TOTAL PROTEIN 7.9 GM/DL (6.4-8.2); TROPONIN I < 0.02 NG/ML (< 0.10)
[2018-04-04 14:26] LABS: CK-MB VALUE MASS < 1.0 NG/ML (<3.6); MB/CK RELATIVE INDEX 1.69 (< OR =4)
[2018-04-04] MEDS: LABETALOL HCL 100 MG/20 ML VIAL IV ×2 (16:05→16:52)
[2018-04-04] MEDS ORDERED: ACETAMINOPHEN TAB 650MG DOSE (2X325MG) PO (17:00)
[2018-04-04] MEDS ORDERED: PILL CRUSHER/CUTTER 1 EACH XX (17:15)
[2018-04-04] MEDS: hydrALAZINE INJ 20 MG/ML VIAL IV (17:28)
[2018-04-04] MEDS ORDERED: traMADol 50 MG TAB PO (18:30)
[2018-04-04] MEDS ORDERED: ALPRAZolam 0.5 MG TAB PO (18:30)
[2018-04-04] MEDS ORDERED: ONDANSETRON 4MG/2ML VIAL (J2405) IV (19:00)
[2018-04-04] MEDS: LORazepam 2 MG/ML VIAL (J2060) IV (19:14)
[2018-04-04] MEDS: cloNIDine 0.1 MG TAB PO (19:22)
[2018-04-04] MEDS: ASPIRIN 81 MG ENTERIC TAB PO (21:14)
[2018-04-04] MEDS: amLODIPine 5 MG TAB PO (21:15)
[2018-04-04] MEDS: ONDANSETRON 4MG/2ML VIAL (J2405) IV (21:15)
[2018-04-04] MEDS: levETIRAcetam 250MG TABLET (KEPPRA) PO (21:15)
[2018-04-05] MEDS: METOPROLOL TART 25 MG TABLET PO ×3 (01:17→12:08)
[2018-04-05] MEDS: CANDESARTAN 4MG TABLET PO (08:51)
[2018-04-05] MEDS: levETIRAcetam 250MG TABLET (KEPPRA) PO ×2 (08:52→20:41)
[2018-04-05] MEDS: amLODIPine 5 MG TAB PO ×2 (08:52→20:42)
[2018-04-05] MEDS: CitaloPRAM (CeleXA) 20 MG TAB PO (08:52)
[2018-04-05] MEDS: ENOXAPARIN 30 MG/0.3 ML SYR (J1650) SC (08:54)
[2018-04-05] MEDS: ASPIRIN 81 MG ENTERIC TAB PO (20:41)
[2018-04-06 04:04] LABS: ANION GAP 7 MEQ/L (8-16); BLOOD UREA NITROGEN 18 MG/DL (7-18); CALCIUM LEVEL 8.4 MG/DL (8.8-10.2); CARBON DIOXIDE LEVEL 23 MEQ/L (21-32); CHLORIDE LEVEL 105 MEQ/L (98-107); CREATININE FOR GFR 0.92 MG/DL (0.55-1.30); GLOMERULAR FILTRATION RATE > 60.0 (>32); GLUCOSE, FASTING 124 MG/DL (70-100); MAGNESIUM LEVEL 2.2 MG/DL (1.8-2.4); SODIUM LEVEL 135 MEQ/L (136-145)
[2018-04-06] MEDS: METOPROLOL SUCC *XL* 25MG TAB (TopROL *XL*) PO (08:13)
[2018-04-06] MEDS: levETIRAcetam 250MG TABLET (KEPPRA) PO ×2 (08:14→20:42)
[2018-04-06] MEDS: CitaloPRAM (CeleXA) 20 MG TAB PO (08:14)
[2018-04-06] MEDS: amLODIPine 5 MG TAB PO (08:14)
[2018-04-06] MEDS: ENOXAPARIN 30 MG/0.3 ML SYR (J1650) SC (08:14)
[2018-04-06] MEDS: CANDESARTAN 4MG TABLET PO (08:14)
[2018-04-06] MEDS: ASPIRIN 81 MG ENTERIC TAB PO (20:42)
[2018-04-06] MEDS: CARVedilol 12.5 MG TAB PO (20:42)
[2018-04-06] MEDS ORDERED: METOPROLOL SUCC *XL* 25MG TAB (TopROL *XL*) PO (21:00)
[2018-04-07] MEDS: levETIRAcetam 250MG TABLET (KEPPRA) PO ×2 (08:19→21:02)
[2018-04-07] MEDS: CitaloPRAM (CeleXA) 20 MG TAB PO (08:19)
[2018-04-07] MEDS: CARVedilol 12.5 MG TAB PO ×2 (08:20→21:02)
[2018-04-07] MEDS: ENOXAPARIN 30 MG/0.3 ML SYR (J1650) SC (08:20)
[2018-04-07] MEDS: hydrOXYzine 10 MG TAB PO (08:34)
[2018-04-07] MEDS: ASPIRIN 81 MG ENTERIC TAB PO (21:02)
[2018-04-08] MEDS: ENOXAPARIN 30 MG/0.3 ML SYR (J1650) SC (09:00)
[2018-04-08] MEDS: levETIRAcetam 250MG TABLET (KEPPRA) PO ×2 (10:10→21:14)
[2018-04-08] MEDS: CitaloPRAM (CeleXA) 20 MG TAB PO (10:10)
[2018-04-08] MEDS: CARVedilol 12.5 MG TAB PO ×2 (10:10→21:14)
[2018-04-08 10:11] LABS: ALBUMIN 3.3 GM/DL (3.2-5.2); ALBUMIN/GLOBULIN RATIO 0.83 (1.00-1.93); ALKALINE PHOSPHATASE 60 U/L (45-117); ALT/SGPT 35 U/L (12-78); ANION GAP 8 MEQ/L (8-16); AST/SGOT 23 U/L (7-37); BILIRUBIN,TOTAL 0.4 MG/DL (0.2-1.0); BLOOD UREA NITROGEN 27 MG/DL (7-18); CALCIUM LEVEL 8.6 MG/DL (8.8-10.2); CARBON DIOXIDE LEVEL 22 MEQ/L (21-32); CHLORIDE LEVEL 107 MEQ/L (98-107); CREATININE FOR GFR 1.26 MG/DL (0.55-1.30); GLUCOSE, FASTING 161 MG/DL (70-100); MAGNESIUM LEVEL 2.3 MG/DL (1.8-2.4); POTASSIUM SERUM 4.2 MEQ/L (3.5-5.1); SODIUM LEVEL 137 MEQ/L (136-145); TOTAL PROTEIN 7.3 GM/DL (6.4-8.2)
[2018-04-08 10:46] LABS: BASO % 0.5 % (0.0-1.0); EOS # 0.2 10^3/uL (0.0-0.50); EOS % 3.3 % (0.0-3.0); HEMATOCRIT 38.1 % (36.0-47.0); HEMOGLOBIN 12.5 g/dl (12.0-15.5); IMMATURE GRANULOCYTE % 0.5 % (0-3.0); LYMPH # 1.5 10^3/uL (1.5-4.5); LYMPH % 22.9 % (24.0-44.0); MEAN CORPUSCULAR HEMOGLOBIN 31.6 pg (27.0-33.0); MEAN CORPUSCULAR HGB CONC 32.8 g/dl (32.0-36.5); MEAN CORPUSCULAR VOLUME 96.5 fl (80.0-96.0); MONO # 0.5 10^3/uL (0.0-0.8); MONO % 8.5 % (0.0-5.0); NEUTROPHILS # 4.1 10^3/uL (1.8-7.7); NEUTROPHILS % 64.3 % (36.0-66.0); PLATELET COUNT, AUTOMATED 210 10^3/uL (150-450); RED BLOOD COUNT 3.95 10^6/uL (4.00-5.40); RED CELL DISTRIBUTION WIDTH 12.3 % (11.5-14.5); WHITE BLOOD COUNT 6.4 10^3/uL (4.0-10.0)
[2018-04-08] MEDS ORDERED: SLF 3 ML SYR IV (11:15)
[2018-04-08] MEDS: SLF 3 ML SYR IV ×2 (14:00→21:15)
[2018-04-08] MEDS: ASPIRIN 81 MG ENTERIC TAB PO (21:14)
[2018-04-09] MEDS: SLF 3 ML SYR IV (06:00)
[2018-04-09] MEDS: CitaloPRAM (CeleXA) 20 MG TAB PO (08:14)
[2018-04-09] MEDS: levETIRAcetam 250MG TABLET (KEPPRA) PO (08:15)
[2018-04-09] MEDS: ENOXAPARIN 30 MG/0.3 ML SYR (J1650) SC (08:16)
[2018-04-09] MEDS: CARVedilol 12.5 MG TAB PO (08:16)
[2018-04-09] MEDS: hydrOXYzine 10 MG TAB PO (12:51)
== END 2018-04-09 12:58 | disposition home or self-care (01) | DRG 305 ==
LOC: M MSPAV 04-08 18:35 → M ED 11:47 → M ED INP 11:48 → M PCU 20:24
DX: I16.0 Hypertensive urgency (principal); F41.9 Anxiety disorder, unspecified; F32.9 Major depressive disorder, single episode, unspecified; G40.909 Epilepsy, unspecified, not intractable, without status epilepticus; M19.90 Unspecified osteoarthritis, unspecified site; Z79.899 Other long term (current) drug therapy; Z88.8 Allergy status to other drugs, medicaments and biological substances; Z62.820 Parent-biological child conflict

== ENCOUNTER 2018-05-05 09:13 | Emergency (ER) | payer MEDICARE | END 2018-05-05 12:36 | disposition home or self-care (01) | LOC: M ED 09:13 | DX: F41.9 Anxiety disorder, unspecified (principal); Z63.8 Other specified problems related to primary support group; I10 Essential (primary) hypertension; G40.909 Epilepsy, unspecified, not intractable, without status epilepticus; F32.9 Major depressive disorder, single episode, unspecified; K21.9 Gastro-esophageal reflux disease without esophagitis; M54.9 Dorsalgia, unspecified; Z87.19 Personal history of other diseases of the digestive system; Z87.442 Personal history of urinary calculi; Z87.440 Personal history of urinary (tract) infections; Z87.891 Personal history of nicotine dependence; Z88.1 Allergy status to other antibiotic agents; Z88.8 Allergy status to other drugs, medicaments and biological substances; Z79.899 Other long term (current) drug therapy; Z79.82 Long term (current) use of aspirin | CPT/HCPCS: 99284 ==

== ENCOUNTER 2018-07-06 09:47 | Inpatient (IN) | payer MEDICARE ==
[2018-07-06] MEDS: NS 1,000 ML IV ×2 (11:00→18:05)
[2018-07-06 11:10] LABS: BASO % 0.2 % (0.0-1.0); EOS % 0.8 % (0.0-3.0); HEMATOCRIT 38.7 % (36.0-47.0); IMMATURE GRANULOCYTE % 0.2 % (0-3.0); LYMPH # 1.5 10^3/uL (1.5-4.5); LYMPH % 29.3 % (24.0-44.0); MEAN CORPUSCULAR HEMOGLOBIN 31.6 pg (27.0-33.0); MEAN CORPUSCULAR HGB CONC 33.6 g/dl (32.0-36.5); MEAN CORPUSCULAR VOLUME 93.9 fl (80.0-96.0); MONO # 0.5 10^3/uL (0.0-0.8); MONO % 9.7 % (0.0-5.0); NEUTROPHILS % 59.8 % (36.0-66.0); PLATELET COUNT, AUTOMATED 181 10^3/uL (150-450); RED BLOOD COUNT 4.12 10^6/uL (4.00-5.40); RED CELL DISTRIBUTION WIDTH 12.4 % (11.5-14.5); WHITE BLOOD COUNT 5.1 10^3/uL (4.0-10.0)
[2018-07-06 12:27] LABS: INR 1.05; PROTHROMBIN TIME 13.8 SECONDS (12.1-14.4)
[2018-07-06 12:38] LABS: ALBUMIN/GLOBULIN RATIO 1.11 (1.00-1.93); ALKALINE PHOSPHATASE 49 U/L (45-117); ALT/SGPT 22 U/L (12-78); ANION GAP 11 MEQ/L (8-16); AST/SGOT 17 U/L (7-37); BILIRUBIN,DIRECT < 0.1 MG/DL (0.0-0.2); BILIRUBIN,TOTAL 0.2 MG/DL (0.2-1.0); BLOOD UREA NITROGEN 15 MG/DL (7-18); CALCIUM LEVEL 8.1 MG/DL (8.8-10.2); CARBON DIOXIDE LEVEL 22 MEQ/L (21-32); CHLORIDE LEVEL 111 MEQ/L (98-107); CREATININE FOR GFR 1.09 MG/DL (0.55-1.30); GLOMERULAR FILTRATION RATE 50.8 (>32); GLUCOSE, FASTING 109 MG/DL (70-100); LIPASE 138 U/L (73-393); SODIUM LEVEL 144 MEQ/L (136-145); TOTAL PROTEIN 5.7 GM/DL (6.4-8.2)
[2018-07-06 12:49] LABS: POTASSIUM SERUM 2.5 MEQ/L (3.5-5.1)
[2018-07-06] MEDS: POTASSIUM CHLORIDE 10 MEQ SR TABLET PO ×3 (13:20→23:02)
[2018-07-06] MEDS: KCL 10MEQ/100ML SWI (KRUN) 10 MEQ in APPROPRIATE DILUENT 1 EA IV (13:21)
[2018-07-06 13:49] LABS: AMORPHOUS SEDIMENT RFX SMALL (NEGATIVE); CALCIUM OXALATE CRYSTALS RFX SMALL; KETONE, URINE AUTO RFX TRACE mg/dL (NEGATIVE); LEUKOCYTE ESTERASE UR AUTO RFX 3+ (NEGATIVE); MUCUS, URINE RFX SMALL (NEGATIVE); NITRITE, URINE AUTO RFX NEGATIVE (NEGATIVE); RBC, URINE AUTO RFX 4 /HPF (0-3); SPECIFIC GRAVITY UR AUTO RFX 1.015 (1.002-1.035); SQUAM EPITHELIAL CELL UR AURFX 2 /HPF (0-6); TRANSITIONAL EPITHELIAL AU RFX 2 /HPF; WBC, URINE AUTO RFX 36 /HPF (0-3)
[2018-07-06 14:39] LABS: TROPONIN I < 0.02 NG/ML (< 0.10)
[2018-07-06 14:48] LABS: CK-MB VALUE MASS < 1.0 NG/ML (<3.6); CPK CREATINE PHOSPHOKINASE 122 U/L (26-192); MB/CK RELATIVE INDEX 0.81 (< OR =4)
[2018-07-06 15:30] LABS: MAGNESIUM LEVEL 2.2 MG/DL (1.8-2.4)
[2018-07-06] MEDS ORDERED: hydrOXYzine 10 MG TAB PO (16:15)
[2018-07-06] MEDS ORDERED: ACETAMINOPHEN 325 MG TAB PO (16:15)
[2018-07-06] MEDS: VITAMIN D 50,000 UNITS CAPSULE (ERGOCALCIFEROL 1.25MG) PO (18:05)
[2018-07-06 18:38] LABS: POTASSIUM SERUM 2.8 MEQ/L (3.5-5.1)
[2018-07-06] MEDS: CitaloPRAM (CeleXA) 20 MG TAB PO (20:17)
[2018-07-06] MEDS: levETIRAcetam 250MG TABLET (KEPPRA) PO (20:19)
[2018-07-06] MEDS: CARVedilol 12.5 MG TAB PO (20:19)
[2018-07-06] MEDS: ASPIRIN 81 MG ENTERIC TAB PO (20:20)
[2018-07-07 00:41] LABS: POTASSIUM SERUM 3.4 MEQ/L (3.5-5.1)
[2018-07-07] MEDS: POTASSIUM CHLORIDE 10 MEQ SR TABLET PO ×3 (01:45→16:52)
[2018-07-07 06:45] LABS: BASO % 0.5 % (0.0-1.0); EOS # 0.1 10^3/uL (0.0-0.50); EOS % 1.1 % (0.0-3.0); HEMATOCRIT 34.9 % (36.0-47.0); HEMOGLOBIN 11.7 g/dl (12.0-15.5); IMMATURE GRANULOCYTE % 0.2 % (0-3.0); LYMPH # 1.7 10^3/uL (1.5-4.5); LYMPH % 37.5 % (24.0-44.0); MEAN CORPUSCULAR HEMOGLOBIN 31.8 pg (27.0-33.0); MEAN CORPUSCULAR HGB CONC 33.5 g/dl (32.0-36.5); MEAN CORPUSCULAR VOLUME 94.8 fl (80.0-96.0); MONO # 0.6 10^3/uL (0.0-0.8); MONO % 12.9 % (0.0-5.0); NEUTROPHILS # 2.1 10^3/uL (1.8-7.7); NEUTROPHILS % 47.8 % (36.0-66.0); PLATELET COUNT, AUTOMATED 166 10^3/uL (150-450); RED BLOOD COUNT 3.68 10^6/uL (4.00-5.40); RED CELL DISTRIBUTION WIDTH 12.6 % (11.5-14.5); WHITE BLOOD COUNT 4.4 10^3/uL (4.0-10.0)
[2018-07-07 06:54] LABS: ANION GAP 10 MEQ/L (8-16); BLOOD UREA NITROGEN 11 MG/DL (7-18); CALCIUM LEVEL 8.6 MG/DL (8.8-10.2); CARBON DIOXIDE LEVEL 22 MEQ/L (21-32); CHLORIDE LEVEL 117 MEQ/L (98-107); CREATININE FOR GFR 0.85 MG/DL (0.55-1.30); GLOMERULAR FILTRATION RATE > 60.0 (>32); GLUCOSE, FASTING 94 MG/DL (70-100); MAGNESIUM LEVEL 1.9 MG/DL (1.8-2.4); SODIUM LEVEL 149 MEQ/L (136-145)
[2018-07-07] MEDS: ENOXAPARIN 40 MG/0.4 ML SYRINGE (J1650) SC (08:00)
[2018-07-07] MEDS: levETIRAcetam 250MG TABLET (KEPPRA) PO ×2 (08:00→20:25)
[2018-07-07] MEDS: CARVedilol 12.5 MG TAB PO ×2 (08:01→20:24)
[2018-07-07] MEDS: ACETAMINOPHEN TAB 650MG DOSE (2X325MG) PO (11:25)
[2018-07-07 12:45] LABS: C REACTIVE PROTEIN QUANTITATIV < 0.30 MG/DL (0.00-0.30); FREE T4 1.04 NG/DL (0.76-1.46)
[2018-07-07 12:56] LABS: ERYTHROCYTE SEDIMENTATION RATE 28 mm/hr (0-42)
[2018-07-07] MEDS: traMADol 50 MG TAB PO (13:20)
[2018-07-07 14:21] LABS: ANION GAP 9 MEQ/L (8-16); BLOOD UREA NITROGEN 11 MG/DL (7-18); CALCIUM LEVEL 8.6 MG/DL (8.8-10.2); CARBON DIOXIDE LEVEL 23 MEQ/L (21-32); CHLORIDE LEVEL 115 MEQ/L (98-107); CREATININE FOR GFR 1.22 MG/DL (0.55-1.30); GLOMERULAR FILTRATION RATE 44.6 (>32); GLUCOSE, FASTING 108 MG/DL (70-100); POTASSIUM SERUM 3.4 MEQ/L (3.5-5.1); SODIUM LEVEL 147 MEQ/L (136-145)
[2018-07-07] MEDS: CitaloPRAM (CeleXA) 20 MG TAB PO (20:25)
[2018-07-07] MEDS: ASPIRIN 81 MG ENTERIC TAB PO (20:54)
[2018-07-08] MEDS: ACETAMINOPHEN TAB 650MG DOSE (2X325MG) PO (02:06)
[2018-07-08 06:17] LABS: BASO % 0.4 % (0.0-1.0); EOS # 0.1 10^3/uL (0.0-0.50); EOS % 1.3 % (0.0-3.0); HEMATOCRIT 33.7 % (36.0-47.0); LYMPH # 1.9 10^3/uL (1.5-4.5); LYMPH % 40.2 % (24.0-44.0); MEAN CORPUSCULAR HEMOGLOBIN 31.1 pg (27.0-33.0); MEAN CORPUSCULAR HGB CONC 32.6 g/dl (32.0-36.5); MEAN CORPUSCULAR VOLUME 95.2 fl (80.0-96.0); MONO # 0.6 10^3/uL (0.0-0.8); MONO % 13.5 % (0.0-5.0); NEUTROPHILS # 2.1 10^3/uL (1.8-7.7); NEUTROPHILS % 44.6 % (36.0-66.0); PLATELET COUNT, AUTOMATED 159 10^3/uL (150-450); RED BLOOD COUNT 3.54 10^6/uL (4.00-5.40); RED CELL DISTRIBUTION WIDTH 12.5 % (11.5-14.5); WHITE BLOOD COUNT 4.7 10^3/uL (4.0-10.0)
[2018-07-08 06:30] LABS: ANION GAP 10 MEQ/L (8-16); BLOOD UREA NITROGEN 11 MG/DL (7-18); CALCIUM LEVEL 8.5 MG/DL (8.8-10.2); CARBON DIOXIDE LEVEL 21 MEQ/L (21-32); CHLORIDE LEVEL 116 MEQ/L (98-107); GLOMERULAR FILTRATION RATE > 60.0 (>32); GLUCOSE, FASTING 93 MG/DL (70-100); MAGNESIUM LEVEL 1.8 MG/DL (1.8-2.4); POTASSIUM SERUM 3.5 MEQ/L (3.5-5.1); SODIUM LEVEL 147 MEQ/L (136-145)
[2018-07-08] MEDS: ENOXAPARIN 40 MG/0.4 ML SYRINGE (J1650) SC (08:21)
[2018-07-08] MEDS: levETIRAcetam 250MG TABLET (KEPPRA) PO ×2 (08:21→20:50)
[2018-07-08] MEDS: CARVedilol 12.5 MG TAB PO ×2 (08:25→20:51)
[2018-07-08] MEDS: POTASSIUM CHLORIDE 10 MEQ SR TABLET PO (09:49)
[2018-07-08] MEDS: MAG SULF 1GM/100ML (MAG RUN) 1 GM in APPROPRIATE DILUENT 1 EA IV (12:43)
[2018-07-08] MEDS: CitaloPRAM (CeleXA) 20 MG TAB PO (20:50)
[2018-07-08] MEDS: ASPIRIN 81 MG ENTERIC TAB PO (20:51)
[2018-07-09 06:12] LABS: BASO % 0.5 % (0.0-1.0); EOS # 0.1 10^3/uL (0.0-0.50); EOS % 2.1 % (0.0-3.0); HEMATOCRIT 33.9 % (36.0-47.0); HEMOGLOBIN 11.3 g/dl (12.0-15.5); IMMATURE GRANULOCYTE % 0.3 % (0-3.0); LYMPH # 1.5 10^3/uL (1.5-4.5); LYMPH % 37.9 % (24.0-44.0); MEAN CORPUSCULAR HEMOGLOBIN 31.7 pg (27.0-33.0); MEAN CORPUSCULAR HGB CONC 33.3 g/dl (32.0-36.5); MONO # 0.5 10^3/uL (0.0-0.8); MONO % 12.5 % (0.0-5.0); NEUTROPHILS # 1.8 10^3/uL (1.8-7.7); NEUTROPHILS % 46.7 % (36.0-66.0); PLATELET COUNT, AUTOMATED 151 10^3/uL (150-450); RED BLOOD COUNT 3.57 10^6/uL (4.00-5.40); RED CELL DISTRIBUTION WIDTH 12.6 % (11.5-14.5); WHITE BLOOD COUNT 3.8 10^3/uL (4.0-10.0)
[2018-07-09 06:33] LABS: ANION GAP 10 MEQ/L (8-16); BLOOD UREA NITROGEN 9 MG/DL (7-18); CALCIUM LEVEL 8.4 MG/DL (8.8-10.2); CARBON DIOXIDE LEVEL 21 MEQ/L (21-32); CHLORIDE LEVEL 117 MEQ/L (98-107); CREATININE FOR GFR 0.73 MG/DL (0.55-1.30); GLOMERULAR FILTRATION RATE > 60.0 (>32); GLUCOSE, FASTING 94 MG/DL (70-100); POTASSIUM SERUM 2.9 MEQ/L (3.5-5.1); SODIUM LEVEL 148 MEQ/L (136-145)
[2018-07-09] MEDS: POTASSIUM CHLORIDE 10 MEQ SR TABLET PO ×2 (07:26→08:59)
[2018-07-09 08:29] LABS: LEVETIRACETAM (KEPPRA) 78.8 ug/mL (10.0-40.0)
[2018-07-09] MEDS: ENOXAPARIN 40 MG/0.4 ML SYRINGE (J1650) SC (08:57)
[2018-07-09] MEDS: levETIRAcetam 250MG TABLET (KEPPRA) PO (08:58)
[2018-07-09] MEDS: CARVedilol 12.5 MG TAB PO (09:00)
[2018-07-09] MEDS: MAG SULF 1GM/100ML (MAG RUN) 1 GM in APPROPRIATE DILUENT 1 EA IV (10:37)
[2018-07-09 11:19] LABS: ANION GAP 7 MEQ/L (8-16); BLOOD UREA NITROGEN 10 MG/DL (7-18); CALCIUM LEVEL 8.4 MG/DL (8.8-10.2); CARBON DIOXIDE LEVEL 24 MEQ/L (21-32); CHLORIDE LEVEL 116 MEQ/L (98-107); CREATININE FOR GFR 0.91 MG/DL (0.55-1.30); GLOMERULAR FILTRATION RATE > 60.0 (>32); GLUCOSE, FASTING 105 MG/DL (70-100); POTASSIUM SERUM 3.9 MEQ/L (3.5-5.1); SODIUM LEVEL 147 MEQ/L (136-145)
[2018-07-09] MEDS ORDERED: POTASSIUM CHLORIDE 10 MEQ SR TABLET PO (13:00)
[2018-07-09] MEDS ORDERED: levETIRAcetam 250MG TABLET (KEPPRA) PO (21:00)
[2018-07-10] MEDS ORDERED: POTASSIUM CHLORIDE 10 MEQ SR TABLET PO (09:00)
== END 2018-07-09 16:15 | disposition home or self-care (01) | DRG 392 ==
LOC: M ED 09:47 → M ED INP 15:04 → M MSPAV 17:30
DX: R19.7 Diarrhea, unspecified (principal); E87.6 Hypokalemia; R53.83 Other fatigue; Z79.899 Other long term (current) drug therapy; Z88.8 Allergy status to other drugs, medicaments and biological substances; I10 Essential (primary) hypertension; Z79.82 Long term (current) use of aspirin; Z87.891 Personal history of nicotine dependence; F41.9 Anxiety disorder, unspecified; F32.9 Major depressive disorder, single episode, unspecified; Z66 Do not resuscitate

== ENCOUNTER 2018-08-04 09:17 | Emergency (ER) | payer MEDICARE ==
[2018-08-04 10:13] LABS: VENOUS BASE EXCESS -3.2 (-2.0-2.0); VENOUS HCO3 21.3 MEQ/L (23.0-27.0); VENOUS O2 SATURATION 98.8 % (60.0-80.0); VENOUS PARTIAL PRESSURE CO2 36.3 mmHg (38.0-50.0); VENOUS PARTIAL PRESSURE O2 126.6 mmHg (30.0-50.0); VENOUS PH 7.386 UNITS (7.330-7.430); VENOUS STANDARD HCO3 21.9 MEQ/L; VENOUS TOTAL CO2 22.4 MEQ/L (24.0-28.0)
[2018-08-04 10:25] LABS: BASO % 0.4 % (0.0-1.0); EOS # 0.1 10^3/uL (0.0-0.50); EOS % 1.8 % (0.0-3.0); HEMATOCRIT 39.3 % (36.0-47.0); HEMOGLOBIN 12.4 g/dl (12.0-15.5); IMMATURE GRANULOCYTE % 0.2 % (0-3.0); LYMPH # 1.5 10^3/uL (1.5-4.5); LYMPH % 29.4 % (24.0-44.0); MEAN CORPUSCULAR HEMOGLOBIN 31.4 pg (27.0-33.0); MEAN CORPUSCULAR HGB CONC 31.6 g/dl (32.0-36.5); MEAN CORPUSCULAR VOLUME 99.5 fl (80.0-96.0); MONO # 0.5 10^3/uL (0.0-0.8); MONO % 8.8 % (0.0-5.0); NEUTROPHILS # 3.1 10^3/uL (1.8-7.7); NEUTROPHILS % 59.4 % (36.0-66.0); PLATELET COUNT, AUTOMATED 188 10^3/uL (150-450); RED BLOOD COUNT 3.95 10^6/uL (4.00-5.40); RED CELL DISTRIBUTION WIDTH 12.5 % (11.5-14.5); WHITE BLOOD COUNT 5.1 10^3/uL (4.0-10.0)
[2018-08-04 11:00] LABS: ALBUMIN 3.3 GM/DL (3.2-5.2); ALBUMIN/GLOBULIN RATIO 0.87 (1.00-1.93); ALKALINE PHOSPHATASE 54 U/L (45-117); ALT/SGPT 20 U/L (12-78); ANION GAP 9 MEQ/L (8-16); AST/SGOT 27 U/L (7-37); BILIRUBIN,DIRECT < 0.1 MG/DL (0.0-0.2); BILIRUBIN,TOTAL 0.3 MG/DL (0.2-1.0); BLOOD UREA NITROGEN 18 MG/DL (7-18); CALCIUM LEVEL 8.8 MG/DL (8.8-10.2); CARBON DIOXIDE LEVEL 22 MEQ/L (21-32); CHLORIDE LEVEL 111 MEQ/L (98-107); CK-MB VALUE MASS < 1.0 NG/ML (<3.6); CPK CREATINE PHOSPHOKINASE 95 U/L (26-192); CREATININE FOR GFR 1.15 MG/DL (0.55-1.30); GLOMERULAR FILTRATION RATE 47.7 (>32); GLUCOSE, FASTING 135 MG/DL (70-100); MB/CK RELATIVE INDEX 1.05 (< OR =4); POTASSIUM SERUM 5.6 MEQ/L (3.5-5.1); SODIUM LEVEL 142 MEQ/L (136-145); TOTAL PROTEIN 7.1 GM/DL (6.4-8.2); TROPONIN I < 0.02 NG/ML (< 0.10)
== END 2018-08-04 15:54 | disposition home or self-care (01) ==
LOC: M ED 09:17
DX: F33.9 Major depressive disorder, recurrent, unspecified (principal); R90.82 White matter disease, unspecified; I10 Essential (primary) hypertension; G40.909 Epilepsy, unspecified, not intractable, without status epilepticus; F41.9 Anxiety disorder, unspecified; Z79.899 Other long term (current) drug therapy; Z79.82 Long term (current) use of aspirin; Z88.1 Allergy status to other antibiotic agents; Z88.8 Allergy status to other drugs, medicaments and biological substances; Z87.891 Personal history of nicotine dependence
CPT/HCPCS: 70450

== ENCOUNTER 2018-08-17 14:31 | Emergency (ER) | payer MEDICARE ==
[2018-08-17] MEDS: NS 500 ML IV (15:18)
[2018-08-17 15:30] LABS: BASO % 0.2 % (0.0-1.0); EOS # 0.1 10^3/uL (0.0-0.50); EOS % 1.2 % (0.0-3.0); HEMATOCRIT 38.4 % (36.0-47.0); HEMOGLOBIN 12.3 g/dl (12.0-15.5); IMMATURE GRANULOCYTE % 0.2 % (0-3.0); LYMPH # 1.6 10^3/uL (1.5-4.5); LYMPH % 31.5 % (24.0-44.0); MEAN CORPUSCULAR HEMOGLOBIN 31.8 pg (27.0-33.0); MEAN CORPUSCULAR VOLUME 99.2 fl (80.0-96.0); MONO # 0.4 10^3/uL (0.0-0.8); MONO % 8.2 % (0.0-5.0); NEUTROPHILS % 58.7 % (36.0-66.0); PLATELET COUNT, AUTOMATED 182 10^3/uL (150-450); RED BLOOD COUNT 3.87 10^6/uL (4.00-5.40); RED CELL DISTRIBUTION WIDTH 12.2 % (11.5-14.5); WHITE BLOOD COUNT 5.1 10^3/uL (4.0-10.0)
[2018-08-17 16:29] LABS: ALBUMIN 3.3 GM/DL (3.2-5.2); ALBUMIN/GLOBULIN RATIO 0.87 (1.00-1.93); ALKALINE PHOSPHATASE 53 U/L (45-117); ALT/SGPT 22 U/L (12-78); ANION GAP 9 MEQ/L (8-16); AST/SGOT 18 U/L (7-37); BILIRUBIN,DIRECT < 0.1 MG/DL (0.0-0.2); BILIRUBIN,TOTAL 0.3 MG/DL (0.2-1.0); BLOOD UREA NITROGEN 21 MG/DL (7-18); CALCIUM LEVEL 8.3 MG/DL (8.8-10.2); CARBON DIOXIDE LEVEL 24 MEQ/L (21-32); CHLORIDE LEVEL 107 MEQ/L (98-107); CK-MB VALUE MASS < 1.0 NG/ML (<3.6); CPK CREATINE PHOSPHOKINASE 79 U/L (26-192); GLOMERULAR FILTRATION RATE 45.5 (>32); GLUCOSE, FASTING 121 MG/DL (70-100); MAGNESIUM LEVEL 2.1 MG/DL (1.8-2.4); MB/CK RELATIVE INDEX 1.27 (< OR =4); POTASSIUM SERUM 5.4 MEQ/L (3.5-5.1); SODIUM LEVEL 140 MEQ/L (136-145); TOTAL PROTEIN 7.1 GM/DL (6.4-8.2); TROPONIN I < 0.02 NG/ML (< 0.10)
[2018-08-17 19:12] LABS: KETONE, URINE AUTO RFX NEGATIVE (NEGATIVE); MUCUS, URINE RFX SMALL (NEGATIVE); NITRITE, URINE AUTO RFX NEGATIVE (NEGATIVE); RBC, URINE AUTO RFX 27 /HPF (0-3); SPECIFIC GRAVITY UR AUTO RFX 1.021 (1.002-1.035); SQUAM EPITHELIAL CELL UR AURFX 3 /HPF (0-6)
[2018-08-17 19:13] LABS: LEUKOCYTE ESTERASE UR AUTO RFX 3+ (NEGATIVE); WBC, URINE AUTO RFX 37 /HPF (0-3)
== END 2018-08-17 19:45 | disposition home or self-care (01) ==
LOC: M ED 14:31
DX: E86.0 Dehydration (principal); E87.5 Hyperkalemia
CPT/HCPCS: 93005

== ENCOUNTER 2018-08-24 10:32 | Emergency (ER) | payer MEDICARE ==
[2018-08-24 11:11] LABS: BASO % 0.5 % (0.0-1.0); EOS # 0.1 10^3/uL (0.0-0.50); EOS % 1.9 % (0.0-3.0); HEMATOCRIT 38.4 % (36.0-47.0); HEMOGLOBIN 12.2 g/dl (12.0-15.5); IMMATURE GRANULOCYTE % 0.2 % (0-3.0); LYMPH # 1.2 10^3/uL (1.5-4.5); LYMPH % 28.2 % (24.0-44.0); MEAN CORPUSCULAR HEMOGLOBIN 31.7 pg (27.0-33.0); MEAN CORPUSCULAR HGB CONC 31.8 g/dl (32.0-36.5); MEAN CORPUSCULAR VOLUME 99.7 fl (80.0-96.0); MONO # 0.4 10^3/uL (0.0-0.8); MONO % 9.2 % (0.0-5.0); NEUTROPHILS # 2.5 10^3/uL (1.8-7.7); PLATELET COUNT, AUTOMATED 177 10^3/uL (150-450); RED BLOOD COUNT 3.85 10^6/uL (4.00-5.40); RED CELL DISTRIBUTION WIDTH 12.4 % (11.5-14.5); WHITE BLOOD COUNT 4.2 10^3/uL (4.0-10.0)
[2018-08-24 11:25] LABS: INR 1.03; PARTIAL THROMBOPLASTIN TIME 25.2 SECONDS (25.4-37.6); PROTHROMBIN TIME 13.6 SECONDS (12.1-14.4)
[2018-08-24 11:29] LABS: ALBUMIN 3.5 GM/DL (3.2-5.2); ALBUMIN/GLOBULIN RATIO 1.17 (1.00-1.93); ALKALINE PHOSPHATASE 52 U/L (45-117); ALT/SGPT 18 U/L (12-78); ANION GAP 6 MEQ/L (8-16); AST/SGOT 21 U/L (7-37); BILIRUBIN,DIRECT < 0.1 MG/DL (0.0-0.2); BILIRUBIN,TOTAL 0.3 MG/DL (0.2-1.0); BLOOD UREA NITROGEN 12 MG/DL (7-18); CALCIUM LEVEL 8.9 MG/DL (8.8-10.2); CARBON DIOXIDE LEVEL 30 MEQ/L (21-32); CHLORIDE LEVEL 107 MEQ/L (98-107); CK-MB VALUE MASS < 1.0 NG/ML (<3.6); CPK CREATINE PHOSPHOKINASE 58 U/L (26-192); CREATININE FOR GFR 0.98 MG/DL (0.55-1.30); FREE T4 0.98 NG/DL (0.76-1.46); GLOMERULAR FILTRATION RATE 57.4 (>32); GLUCOSE, FASTING 115 MG/DL (70-100); MB/CK RELATIVE INDEX 1.72 (< OR =4); POTASSIUM SERUM 4.3 MEQ/L (3.5-5.1); SODIUM LEVEL 143 MEQ/L (136-145); TOTAL PROTEIN 6.5 GM/DL (6.4-8.2); TROPONIN I < 0.02 NG/ML (< 0.10)
[2018-08-24 11:37] LABS: GOLD SPEC TUBE RECIEVED
[2018-08-24] MEDS: NS 1,000 ML IV (13:00)
[2018-08-24 15:03] LABS: KETONE, URINE AUTO RFX NEGATIVE (NEGATIVE); MUCUS, URINE RFX SMALL (NEGATIVE); NITRITE, URINE AUTO RFX NEGATIVE (NEGATIVE); RBC, URINE AUTO RFX 0 /HPF (0-3); SPECIFIC GRAVITY UR AUTO RFX 1.016 (1.002-1.035); SQUAM EPITHELIAL CELL UR AURFX 2 /HPF (0-6)
[2018-08-24 15:08] LABS: LEUKOCYTE ESTERASE UR AUTO RFX 3+ (NEGATIVE); WBC, URINE AUTO RFX 45 /HPF (0-3)
[2018-08-24] MEDS: NITROFURANTOIN (MACROBID) 100 MG CAP PO (15:57)
== END 2018-08-24 16:08 | disposition home or self-care (01) ==
LOC: M ED 10:32
DX: N39.0 Urinary tract infection, site not specified (principal); I51.9 Heart disease, unspecified; I10 Essential (primary) hypertension; Z87.891 Personal history of nicotine dependence; Z79.82 Long term (current) use of aspirin; Z79.899 Other long term (current) drug therapy; Z88.1 Allergy status to other antibiotic agents; Z88.8 Allergy status to other drugs, medicaments and biological substances
CPT/HCPCS: 93005

== ENCOUNTER → 2018-09-28 | Outpatient (REF) | payer MEDICARE | LOC: M LAB REF 15:28 | DX: F03.90 Unspecified dementia, unspecified severity, without behavioral disturbance, psychotic disturbance, mood disturbance, and anxiety (principal) | CPT/HCPCS: 86780 ==

== ENCOUNTER → 2018-10-07 | Outpatient (CLI) | payer MEDICARE | LOC: M RAD 10:03 | DX: G31.89 Other specified degenerative diseases of nervous system (principal); R41.3 Other amnesia | CPT/HCPCS: 70450 ==

== ENCOUNTER 2018-12-15 08:16 | Emergency (ER) | payer MEDICARE ==
[~2018-12-15] VITALS: Ht 162.6 cm; Wt 68.2 kg
[~2018-12-15 08:16] MED LIST changes: +ACET1TAB55 PO; +ALEN70TA57 PO; +AMLO2.5T3 PO; +AMLO5TAB6 PO; +ATAC4TAB2 PO; +CARV25TA PO; +CELE20TA PO; +CITA-231 PO; +ERGO500014 PO; +HYDR-643 PO; +K-TA1TAB PO; +KEPP1TAB2 PO; +KEPP250T5 PO; +KLOR10TA76 PO; +MACR100C43 PO; +REFR0.5D8 OU; +VALS1TAB49 PO; +VITA400T15 PO; +ZOFR4TAB14 PO; -ZOFR4TAB3 PO
[2018-12-15 09:42] LABS: HEMATOCRIT 39.1 % (36.0-47.0); HEMOGLOBIN 12.6 g/dl (12.0-15.5); MEAN CORPUSCULAR HGB CONC 32.2 g/dl (32.0-36.5); MEAN CORPUSCULAR VOLUME 99.2 fl (80.0-96.0); PLATELET COUNT, AUTOMATED 194 10^3/uL (150-450); RED BLOOD COUNT 3.94 10^6/uL (4.00-5.40); WHITE BLOOD COUNT 4.8 10^3/uL (4.0-10.0)
[2018-12-15 10:18] LABS: ACETAMINOPHEN LEVEL < 2.0 UG/ML (10.0-30.0); ALBUMIN 3.5 GM/DL (3.2-5.2); ALT/SGPT 54 U/L (12-78); BILIRUBIN,DIRECT < 0.1 MG/DL (0.0-0.2); BILIRUBIN,TOTAL 0.2 MG/DL (0.2-1.0); BLOOD UREA NITROGEN 20 MG/DL (7-18); CALCIUM LEVEL 8.4 MG/DL (8.8-10.2); CARBON DIOXIDE LEVEL 28 MEQ/L (21-32); CHLORIDE LEVEL 104 MEQ/L (98-107); CREATININE FOR GFR 0.96 MG/DL (0.55-1.30); GLOMERULAR FILTRATION RATE 58.8 (>32); GLUCOSE, FASTING 95 MG/DL (70-100); POTASSIUM SERUM 4.6 MEQ/L (3.5-5.1); SALICYLATE LEVEL < 1.7 MG/DL (5.0-30.0); SODIUM LEVEL 138 MEQ/L (136-145); TOTAL PROTEIN 6.7 GM/DL (6.4-8.2)
[2018-12-15 10:19] LABS: ETHYL ALCOHOL (ETHANOL) < 0.003 % (0.000-0.010)
[2018-12-15 11:05] LABS: AMPHETAMINES LEVEL URINE NEGATIVE (NEGATIVE); BARBITURATES URINE NEGATIVE (NEGATIVE); BENZODIAZEPINES URINE NEGATIVE (NEGATIVE); CANNABINOIDS URINE NEGATIVE (NEGATIVE); COCAINE METABOLITE URINE NEGATIVE (NEGATIVE); METHADONE URINE NEGATIVE (NEGATIVE); OPIATES URINE NEGATIVE (NEGATIVE); PHENCYCLIDINE URINE NEGATIVE (NEGATIVE)
[2018-12-15 13:25] VITALS: BP 147/78
== END 2018-12-15 13:26 | disposition home or self-care (01) ==
LOC: M ED 08:16
DX: F41.9 Anxiety disorder, unspecified (principal); F33.9 Major depressive disorder, recurrent, unspecified; I10 Essential (primary) hypertension; R56.9 Unspecified convulsions; K21.9 Gastro-esophageal reflux disease without esophagitis; Z79.899 Other long term (current) drug therapy; Z79.82 Long term (current) use of aspirin; Z88.1 Allergy status to other antibiotic agents; Z88.8 Allergy status to other drugs, medicaments and biological substances; Z87.891 Personal history of nicotine dependence
CPT/HCPCS: 36415; 80048; 80076; 80307; 84443; 85027; 99284; G0480

== ENCOUNTER → 2019-06-02 | Outpatient (REF) | payer MEDICARE ==
[~2019-06-02] MED LIST changes: -ALEN70TA57 PO; +ALEN70TA74 PO; -CITA-231 PO; +CITA40TA6 PO; -ERGO500014 PO; +VITA500045 PO
== END ==
LOC: M LAB REF 17:18
PROVIDERS: ATTEND Nurse Practitioner Adult Health
DX: G25.0 Essential tremor (principal)

== ENCOUNTER 2019-09-27 18:04 | Emergency (ER) | payer MEDICARE ==
[~2019-09-27 18:04] MED LIST changes: -VALS1TAB49 PO; +VALS40TA9 PO
[2019-09-27] MEDS ORDERED: MORPHINE 2 MG/ML 1ML VIAL (J2270) IV ONE (18:45)
[2019-09-27] MEDS ORDERED: ONDANSETRON 4MG/2ML VIAL (J2405) IV ONE (18:45)
[2019-09-27] MEDS ORDERED: NORCO, ANEXSIA 5/325MG TABLET (HYDROcodone/ACETAMINOPHEN) PO ONE (18:45)
--- NOTE | 2019-09-27 19:04 | REP ---
Clinical: Chest pain. Technique: PA and lateral. Comparison: 07/06/2018. Findings: Mediastinum and cardiac silhouette are stable. Lung chow demonstrate diffuse chronic interstitial changes. No focal consolidation, effusion, or pneumothorax. Skeletal structures demonstrate age-related osteopenia and degenerative changes. Impression: Chronic stable changes. No acute cardiopulmonary process appreciated. Electronically Signed by Killian Darling MD 09/27/2019 06:56 P
[2019-09-27 19:07] LABS: HEMATOCRIT 39.3 % (36.0-47.0); HEMOGLOBIN 12.5 g/dl (12.0-15.5); MEAN CORPUSCULAR HEMOGLOBIN 32.2 pg (27.0-33.0); MEAN CORPUSCULAR HGB CONC 31.8 g/dl (32.0-36.5); MEAN CORPUSCULAR VOLUME 101.3 fl (80.0-96.0); PLATELET COUNT, AUTOMATED 186 10^3/uL (150-450); RED BLOOD COUNT 3.88 10^6/uL (4.00-5.40); WHITE BLOOD COUNT 5.4 10^3/uL (4.0-10.0)
[2019-09-27 19:31] LABS: BLOOD UREA NITROGEN 17 MG/DL (7-18); CALCIUM LEVEL 8.8 MG/DL (8.8-10.2); CARBON DIOXIDE LEVEL 23 MEQ/L (21-32); CHLORIDE LEVEL 112 MEQ/L (98-107); CK-MB VALUE MASS < 1.0 NG/ML (<3.6); CPK CREATINE PHOSPHOKINASE 59 U/L (26-192); CREATININE FOR GFR 1.09 MG/DL (0.55-1.30); GLOMERULAR FILTRATION RATE 50.7 (>32); GLUCOSE, FASTING 138 MG/DL (70-100); MB/CK RELATIVE INDEX 1.69 (< OR =4); POTASSIUM SERUM 4.6 MEQ/L (3.5-5.1); SODIUM LEVEL 142 MEQ/L (136-145); TROPONIN I < 0.02 NG/ML (< 0.10)
[2019-09-27 20:32] VITALS: BP 135/66
--- NOTE | 2019-09-29 07:54 | ECGEPIP ---
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
== END 2019-09-27 20:45 | disposition home or self-care (01) ==
LOC: M ED 18:04 → EDBD 18:04 → M ED 20:45
DX: M19.012 Primary osteoarthritis, left shoulder (principal); M85.89 Other specified disorders of bone density and structure, multiple sites; R94.31 Abnormal electrocardiogram [ECG] [EKG]; I11.9 Hypertensive heart disease without heart failure; Z88.1 Allergy status to other antibiotic agents; Z88.9 Allergy status to unspecified drugs, medicaments and biological substances; Z79.82 Long term (current) use of aspirin; Z79.891 Long term (current) use of opiate analgesic; Z79.899 Other long term (current) drug therapy
CPT/HCPCS: 71046; 80048; 82550; 82553; 84484; 85027; 93005; 96374; 96375; 99284; J2270; J2405

== ENCOUNTER 2019-10-26 18:17 | Inpatient (IN) | payer MEDICARE ==
[~2019-10-26] VITALS: Ht 160 cm; Wt 69.4 kg
[2019-10-26] MEDS ORDERED: BUSP10TA (18:37)
[2019-10-26] MEDS ORDERED: DONE5TAB82 (18:37)
[2019-10-26] MEDS ORDERED: QUET1TAB7 (18:37)
[2019-10-26] MEDS ORDERED: CITA40TA4 (18:37)
[2019-10-26 19:17] LABS: BASO % 0.2 % (0.0-1.0); EOS # 0.1 10^3/uL (0.0-0.5); EOS % 0.6 % (0.0-3.0); HEMATOCRIT 35.4 % (36.0-47.0); HEMOGLOBIN 10.9 g/dl (12.0-15.5); LYMPH # 0.7 10^3/uL (1.5-5.0); LYMPH % 7.9 % (24.0-44.0); MEAN CORPUSCULAR HEMOGLOBIN 31.7 pg (27.0-33.0); MEAN CORPUSCULAR HGB CONC 30.8 g/dl (32.0-36.5); MEAN CORPUSCULAR VOLUME 102.9 fl (80.0-96.0); MONO # 0.5 10^3/uL (0.0-0.8); MONO % 4.9 % (0.0-5.0); PLATELET COUNT, AUTOMATED 194 10^3/uL (150-450); RED BLOOD COUNT 3.44 10^6/uL (4.00-5.40); WHITE BLOOD COUNT 9.3 10^3/uL (4.0-10.0)
[2019-10-26] MEDS ORDERED: ACETAMINOPHEN TAB 650MG DOSE (2X325MG) PO ONE (19:45)
[2019-10-26 19:47] LABS: ALBUMIN 2.9 GM/DL (3.2-5.2); ALT/SGPT 25 U/L (12-78); BILIRUBIN,DIRECT 0.1 MG/DL (0.0-0.2); BILIRUBIN,TOTAL 0.3 MG/DL (0.2-1.0); BLOOD UREA NITROGEN 21 MG/DL (7-18); CALCIUM LEVEL 8.1 MG/DL (8.8-10.2); CARBON DIOXIDE LEVEL 25 MEQ/L (21-32); CHLORIDE LEVEL 109 MEQ/L (98-107); CK-MB VALUE MASS < 1.0 NG/ML (<3.6); CPK CREATINE PHOSPHOKINASE 65 U/L (26-192); CREATININE FOR GFR 1.01 MG/DL (0.55-1.30); GLOMERULAR FILTRATION RATE 55.3 (>32); GLUCOSE, FASTING 155 MG/DL (70-100); MB/CK RELATIVE INDEX 1.54 (< OR =4); POTASSIUM SERUM 4.5 MEQ/L (3.5-5.1); SODIUM LEVEL 141 MEQ/L (136-145); THYROID STIMULATING HORMONE 0.953 uIU/ML (0.358-3.740); TOTAL PROTEIN 6.3 GM/DL (6.4-8.2); TROPONIN I < 0.02 NG/ML (< 0.10)
--- NOTE | 2019-10-26 21:13 | ECGEPIP ---
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
--- NOTE | 2019-10-26 21:27 | REPVR ---
PROCEDURE INFORMATION: Exam: CT Cervical Spine Without Contrast Exam date and time: 10/26/2019 8:37 PM Age: 84 years old Clinical indication: Injury or trauma; Fall; Initial encounter; Blunt trauma; Additional info: Fall, AMS TECHNIQUE: Imaging protocol: Computed tomography images of the cervical spine without contrast. Radiation optimization: All CT scans at this facility use at least one of these dose optimization techniques: automated exposure control; mA and/or kV adjustment per patient size (includes targeted exams where dose is matched to clinical indication); or iterative reconstruction. COMPARISON: No relevant prior studies available. FINDINGS: Vertebrae: Normal spinal curvature, vertebral body heights, and alignment. No spinal fracture or acute subluxation. Discs/Spinal canal/Neural foramina: Diffuse degenerative disc space loss with degenerative disc osteophyte complexes, facet arthropathy, and ligamentum flavum thickening causes up to moderate spinal and foraminal stenosis greatest at C4-C6. Soft tissues: Unremarkable. Lungs: Lung apices are normal. IMPRESSION: No acute vertebral fracture/subluxation. Electronically signed by: Iván Echeverria On 10/26/2019 21:27:14 PM
--- NOTE | 2019-10-26 21:32 | REPVR ---
PROCEDURE INFORMATION: Exam: CT Head Without Contrast Exam date and time: 10/26/2019 8:37 PM Age: 84 years old Clinical indication: Altered mental status/memory loss; Additional info: AMS TECHNIQUE: Imaging protocol: Computed tomography of the head without contrast. Radiation optimization: All CT scans at this facility use at least one of these dose optimization techniques: automated exposure control; mA and/or kV adjustment per patient size (includes targeted exams where dose is matched to clinical indication); or iterative reconstruction. COMPARISON: CT Head without contrast 2018-10-07 10:11 FINDINGS: Brain: Diffuse moderate cerebral age related volume loss. Moderate patchy low attenuation in the white matter compatible with moderate chronic small vessel ischemic disease. No midline shift, mass, fluid collection, or evidence of hemorrhage. Ventricles: Ventricular enlargement proportional to volume loss. Bones/joints: Unremarkable. No acute fracture. Sinuses: Visualized sinuses are unremarkable. No fluid levels. Mastoid air cells: Visualized mastoid air cells are well aerated. Soft tissues: Unremarkable. IMPRESSION: Moderate involutional changes, no acute intracranial abnormality. Electronically signed by: Iván Echeverria On 10/26/2019 21:32:39 PM
[2019-10-26] MEDS ORDERED: cefTRIAXone SOD 1 GM in D5W MINI-BAG PLUS 50 ML IV ONE (21:45)
--- NOTE | 2019-10-26 21:55 | REPVR ---
PROCEDURE INFORMATION: Exam: CT Abdomen And Pelvis Without Contrast Exam date and time: 10/26/2019 9:19 PM Age: 84 years old Clinical indication: Other: Hematuria; Additional info: Hematuria, syncope, eval for stone TECHNIQUE: Imaging protocol: Computed tomography of the abdomen and pelvis without contrast. Radiation optimization: All CT scans at this facility use at least one of these dose optimization techniques: automated exposure control; mA and/or kV adjustment per patient size (includes targeted exams where dose is matched to clinical indication); or iterative reconstruction. COMPARISON: CT ABD PELVIS W/O CONTRAST 2017-08-31 23:41 FINDINGS: Limitations: Artifact related to patient's arm position limits evaluation. Study is limited by the absence of contrast. Lungs: Dependent subsegmental pulmonary atelectasis. Mediastinum: Small hiatal hernia with gastroesophageal thickening, correlate for distal esophagitis or mucosal lesion. Liver: Normal. No mass. Gallbladder and bile ducts: Cholecystectomy clips in the right upper quadrant. Pancreas: Normal. No ductal dilation. Spleen: Normal. No splenomegaly. Adrenals: Normal. No mass. Kidneys and ureters: No urolithiasis or hydronephrosis. Stomach and bowel: Sigmoid colonic wall thickening with multiple diverticula, evidence of mild acute sigmoid diverticulitis. Appendix: No evidence of appendicitis. Intraperitoneal space: Unremarkable. No free air. No significant fluid collection. Vasculature: Unremarkable. No abdominal aortic aneurysm. Lymph nodes: Unremarkable. No enlarged lymph nodes. Bladder: Unremarkable as visualized. Reproductive: Unremarkable as visualized. Bones/joints: Vertebrae are hypodense bones indicating osteopenia. Chronic T12 mild insufficiency fracture. Soft tissues: Unremarkable. IMPRESSION: 1. Small hiatal hernia with gastroesophageal thickening, correlate for distal esophagitis or mucosal lesion. 2. No urolithiasis or hydronephrosis. Electronically signed by: Iván Echeverria On 10/26/2019 21:54:38 PM
[2019-10-26] MEDS ORDERED: ARIC1TAB PO (22:51)
[2019-10-26] MEDS ORDERED: QUET1TAB7 PO (22:51)
[2019-10-26] MEDS ORDERED: ONDA4TAB5 PO (22:51)
[2019-10-26] MEDS ORDERED: GABA-843 PO (22:51)
[2019-10-26] MEDS ORDERED: KEPP1TAB PO (22:51)
[2019-10-26] MEDS ORDERED: CELE40TA PO (22:51)
[2019-10-26] MEDS ORDERED: VITA50005 PO (22:51)
[2019-10-26] MEDS ORDERED: BUSP10TA PO (22:51)
--- NOTE | 2019-10-27 01:14 | HPEPDOC ---
[facility] Medical History & Physical Date of Admission Oct 27, 2019 Date of Service: Oct 27, 2019 Attending Physician: JESUS MANUEL MEI MD History and Physical CHIEF COMPLAINT: Vomiting and altered mental status HISTORY OF PRESENT ILLNESS: 84 year old female with past medical history of hypertension, seizure disorder, anxiety, depression and dementia presents from home with vomiting and altered mental status. Patient is demented, irritated, unable to provide useful history or information at this time, information obtained from daughter at bedside. Daughter reports the patient was diagnosed with UTI couple weeks ago, treated with oral antibiotics with improvement in hematuria and patient's mentation but her symptoms started to recur a few days ago. She started having vomiting and altered mental status over the past 24-48 hours, which is why the patient was brought to the emergency department today. Patient is only concerned about pain on her left hand due to shingles and requesting pain control, otherwise without complaints. She denies any nausea, vomiting, chest pain, abdominal pain, shortness of breath, constipation or diarrhea. 10 point review of system is negative except for above PAST MEDICAL HISTORY: 1. Hypertension. 2. Seizure disorder. 3. Anxiety and depression. 4. Dementia PAST SURGICAL HISTORY: 1. Cholecystectomy. SOCIAL HISTORY: Ex-smoker. Denies alcohol use. No drug use FAMILY HISTORY: No family history of cancer or heart disease ALLERGIES: Please see below. HOME MEDICATIONS: Please see below. PHYSICAL EXAMINATION: VITAL SIGNS: Please see below. GENERAL: No distress HEENT: Normocephalic, atraumatic, moist mucous membranes NECK: Supple CARDIOVASCULAR EXAMINATION: S1, S2, no murmurs RESPIRATORY EXAMINATION: Clear to auscultation, no wheezing ABDOMINAL EXAMINATION: Soft, nontender, nondistended, positive bowel sounds EXTREMITIES: Range of motion intact SKIN: No rash NEUROLOGICAL EXAMINATION: Alert and oriented 1, no focal deficits PSYCHIATRIC EXAMINATION: Guarded LABORATORY DATA: See below. IMAGING: Imaging negative for fractures, CT abdomen and pelvis negative for acute pathology MICROBIOLOGY: Please see below. ASSESSMENT: 84-year-old female, past medical history of hypertension, seizure disorder, anxiety, depression and dementia is being admitted for UTI. PLAN: 1. UTI. Failed outpatient therapy, cefepime, cultures pending. 2. Dementia. Continue Aricept 3. Anxiety and depression. Continue Seroquel, Celexa and BuSpar 4. Seizure disorder. Continue Keppra DVT prophylaxis: Heparin subcutaneous. Next, nausea or flex: Not needed Vital Signs Vital Signs Date Time Temp Pulse Resp B/P (MAP) Pulse Ox O2 Delivery O2 Flow Rate FiO2 10/27/19 00:15 89 18 158/87 (110) 93 Room Air 10/26/19 18:35 101.1 Laboratory Data Labs 24H Laboratory Tests 2 10/26/19 19:00: Lactic Acid Level 2.2*H 10/26/19 19:04: Immature Granulocyte % (Auto) 0.4, Neutrophils (%) (Auto) 86.0H, Lymphocytes (%) (Auto) 7.9L, Monocytes (%) (Auto) 4.9, Eosinophils (%) (Auto) 0.6, Basophils (%) (Auto) 0.2, Neutrophils # (Auto) 8.0, Lymphocytes # (Auto) 0.7L, Monocytes # (Auto) 0.5, Eosinophils # (Auto) 0.1, Basophils # (Auto) 0.0, Nucleated Red Blood Cells % (auto) 0.0, Anion Gap 7L, Glomerular Filtration Rate 55.3, Calcium Level 8.1L, Total Bilirubin 0.3, Direct Bilirubin 0.1, Aspartate Amino Transf (AST/SGOT) 20, Alanine Aminotransferase (ALT/SGPT) 25, Alkaline Phosphatase 62, Total Creatine Kinase 65, Creatine Kinase MB < 1.0, Creatine Kinase MB Relative Index 1.54, Troponin I < 0.02, Total Protein 6.3L, Albumin 2.9L, Albumin/Globulin Ratio 0.85L, Thyroid Stimulating Hormone (TSH) 0.953 10/26/19 19:07: Bedside Glucose (Misc Panel) 155H 10/26/19 20:21: Urine Color YELLOW, Urine Appearance CLOUDYH, Urine pH 7.0, Urine Specific [place] 1.019, Urine Protein 1+H, Urine Glucose (UA) NEGATIVE, Urine Ketones NEGATIVE, Urine Blood 3+H, Urine Nitrite NEGATIVE, Urine Bilirubin NEGATIVE, Urine Urobilinogen 0.2, Urine Leukocyte Esterase 1+H, Urine WBC (Auto) 40H, Urine RBC (Auto) TNTCH, Urine Hyaline Casts (Auto) 0, Urine Bacteria (Auto) NEGATIVE, Urine Squamous Epithelial Cells 1, Urine Mucus (Auto) SMALL, Urine Sperm (Auto) CBC/BMP Laboratory Tests 10/26/19 19:04 Microbiology Microbiology 10/26/19 Respiratory Virus Panel (PCR) (NIVIA) - Final, Complete 10/26/19 Blood Culture, Received Pending 10/26/19 Urine Culture, Received Pending 10/26/19 Blood Culture, Received Pending Home Medications Scheduled Alendronate Sodium (Alendronate Sodium) 70 Mg Tab, 70 MG PO QWEEK WEDNESDAYS Aspirin (Aspir 81) 81 Mg Tab, 81 MG PO QHS Buspirone HCl (Buspirone HCl) 10 Mg Tablet, 10 MG PO TID Citalopram Hydrobromide (Celexa) 40 Mg Tablet, 40 MG PO QHS Donepezil HCl (Aricept) 5 Mg Tablet, 5 MG PO QHS Ergocalciferol (Vitamin D2) (Vitamin D2) 50,000 Units Cap, 50,000 UNITS PO Q2WK EVERY OTHER WEDNESDAY Gabapentin (Gabapentin) 300 Mg Capsule, 300 MG PO TID Levetiracetam (Keppra) 500 Mg Tablet, 500 MG PO BID Quetiapine Fumarate (Quetiapine Fumarate) 25 Mg Tablet, 25 MG PO QHS Scheduled PRN Ondansetron HCl (Ondansetron HCl) 4 Mg Tablet, 4 MG PO Q6H PRN for NAUSEA OR VOMITING Tramadol HCl (Tramadol HCl) 50 Mg Tab, 50 MG PO TID PRN for PAIN Allergies Coded Allergies: ciprofloxacin (Verified Allergy, Unknown, 10/26/19) tamsulosin (Verified Allergy, Unknown, 10/26/19) A-FIB/CHADSVASC A-FIB History Current/History of A-Fib/PAF?: No JESUS MANUEL MEI MD Oct 27, 2019 01:14
[2019-10-27] MEDS ORDERED: ONDANSETRON 4 MG TAB (S0181) PO PRN (01:15)
[2019-10-27 02:40] VITALS: BP 164/92
[2019-10-27] MEDS: traMADol 50 MG TAB PO PRN ×2 (02:49→16:01)
[2019-10-27 06:00] VITALS: BP 158/84
[2019-10-27] MEDS: HEPARIN SOD (PORCINE) 5000 UNITS/ML VIAL SC SCH ×2 (06:54→19:19)
--- NOTE | 2019-10-27 07:46 | REP ---
Clinical: Febrile with altered mental status . Comparison: 04/04/2018. Findings: The mediastinum and cardiac silhouette are stable and within normal limits for portable technique. The lung chow demonstrate chronic interstitial changes. There is a vague subtle area of opacity measuring approximately 1.8 cm in the right mid lung zone midclavicular line which warrants further investigation. No effusion. No pneumothorax. Skeletal structures are intact. Impression: Vague rounded opacity in the right mid lung zone warrants further investigation. Consider chest CT. Electronically Signed by Killian Darling MD 10/27/2019 07:38 A
[2019-10-27] MEDS: levETIRAcetam 250MG TABLET (KEPPRA) PO SCH ×2 (09:18→20:22)
[2019-10-27] MEDS: busPIRone 10 MG TAB PO SCH ×3 (09:18→20:21)
[2019-10-27] MEDS: CEFEPIME HCL 1 GM in D5W MINI-BAG PLUS 50 ML IV SCH ×2 (09:18→20:21)
[2019-10-27] MEDS: GABAPENTIN 300 MG CAP PO SCH ×3 (09:18→20:21)
[2019-10-27] MEDS: NORCO, ANEXSIA 5/325MG TABLET (HYDROcodone/ACETAMINOPHEN) PO PRN (10:25)
[2019-10-27 14:00] VITALS: BP 160/90
[2019-10-27] MEDS ORDERED: DONEPEZIL 5 MG TAB PO SCH (21:00)
[2019-10-27] MEDS ORDERED: CitaloPRAM (CeleXA) 20 MG TAB PO SCH (21:00)
[2019-10-27] MEDS ORDERED: ASPIRIN 81 MG ENTERIC TAB PO SCH (21:00)
[2019-10-27] MEDS ORDERED: QUEtiapine FUMARATE 25 MG TAB PO SCH (21:00)
[2019-10-27 22:00] VITALS: BP 160/93
[2019-10-28] MEDS: HEPARIN SOD (PORCINE) 5000 UNITS/ML VIAL SC SCH (05:47)
[2019-10-28] MEDS: NORCO, ANEXSIA 5/325MG TABLET (HYDROcodone/ACETAMINOPHEN) PO PRN (05:50)
[2019-10-28 06:00] VITALS: BP 156/90
[2019-10-28 06:58] LABS: HEMATOCRIT 31.4 % (36.0-47.0); HEMOGLOBIN 10.1 g/dl (12.0-15.5); MEAN CORPUSCULAR HEMOGLOBIN 32.5 pg (27.0-33.0); MEAN CORPUSCULAR HGB CONC 32.2 g/dl (32.0-36.5); PLATELET COUNT, AUTOMATED 196 10^3/uL (150-450); RED BLOOD COUNT 3.11 10^6/uL (4.00-5.40)
[2019-10-28 07:21] LABS: ALBUMIN 2.6 GM/DL (3.2-5.2); ALT/SGPT 19 U/L (12-78); BILIRUBIN,TOTAL 0.3 MG/DL (0.2-1.0); BLOOD UREA NITROGEN 17 MG/DL (7-18); CALCIUM LEVEL 8.5 MG/DL (8.8-10.2); CARBON DIOXIDE LEVEL 22 MEQ/L (21-32); CHLORIDE LEVEL 110 MEQ/L (98-107); CREATININE FOR GFR 0.82 MG/DL (0.55-1.30); GLOMERULAR FILTRATION RATE > 60.0 (>32); GLUCOSE, FASTING 93 MG/DL (70-100); MAGNESIUM LEVEL 2.2 MG/DL (1.8-2.4); POTASSIUM SERUM 3.8 MEQ/L (3.5-5.1); SODIUM LEVEL 140 MEQ/L (136-145); TOTAL PROTEIN 6.6 GM/DL (6.4-8.2)
[2019-10-28] MEDS ORDERED: HYDR-4571 PO (09:56)
[2019-10-28] MEDS: busPIRone 10 MG TAB PO SCH (10:09)
[2019-10-28] MEDS: GABAPENTIN 300 MG CAP PO SCH (10:09)
[2019-10-28] MEDS: levETIRAcetam 250MG TABLET (KEPPRA) PO SCH (10:09)
[2019-10-28] MEDS: CEFEPIME HCL 1 GM in D5W MINI-BAG PLUS 50 ML IV SCH (10:10)
--- NOTE | 2019-10-28 10:14 | DS.PDOC ---
Discharge Summary General Date of Admission Oct 27, 2019 at 01:02 Date of Discharge October 28, 2019 Primary Care Physician: Albina Christianson Discharge Summary PROCEDURES PERFORMED DURING STAY: [None]. ADMITTING DIAGNOSES: 1. . DISCHARGE DIAGNOSES: 1. . COMPLICATIONS/CHIEF COMPLAINT: Altered Mental Status,Dementia,Uti. HISTORY OF PRESENT ILLNESS: . HOSPITAL COURSE: . DISCHARGE MEDICATIONS: Please see below. ALLERGIES: Please see below. PHYSICAL EXAMINATION ON DISCHARGE: VITAL SIGNS: Please see below. GENERAL: HEENT: NECK: CARDIOVASCULAR EXAMINATION: RESPIRATORY EXAMINATION: ABDOMINAL EXAMINATION: EXTREMITIES: SKIN: NEUROLOGICAL EXAMINATION: PSYCHIATRIC EXAMINATION: LABORATORY DATA: Please see below. IMAGING: PROGNOSIS: ACTIVITY: [As tolerated]. DIET: DISCHARGE PLAN: DISPOSITION: . DISCHARGE INSTRUCTIONS: 1. . ITEMS TO FOLLOWUP ON ON OUTPATIENT: 1. . DISCHARGE CONDITION: [Stable]. TIME SPENT ON DISCHARGE: Greater than minutes. Vital Signs/I&Os Vital Signs Date Time Temp Pulse Resp B/P (MAP) Pulse Ox O2 Delivery O2 Flow Rate FiO2 10/28/19 06:20 18 10/28/19 06:00 98.4 93 156/90 (112) 96 Room Air I&O- Last 24 Hours up to 6 AM 10/28/19 05:59 Intake Total 1170 ml Output Total 575 ml Balance 595 ml Laboratory Data Labs 24H Laboratory Tests 2 10/28/19 06:24: Nucleated Red Blood Cells % (auto) 0.0, Anion Gap 8, Glomerular Filtration Rate > 60.0, Calcium Level 8.5L, Magnesium Level 2.2, Total Bilirubin 0.3, Aspartate Amino Transf (AST/SGOT) 21, Alanine Aminotransferase (ALT/SGPT) 19, Alkaline Phosphatase 55, Total Protein 6.6, Albumin 2.6L, Albumin/Globulin Ratio 0.65L CBC/BMP Laboratory Tests 10/28/19 06:24 Microbiology Microbiology 10/26/19 Respiratory Virus Panel (PCR) ([facility]IVIA) - Final, Complete 10/26/19 Blood Culture - Preliminary, Resulted No growth after 24 hours . All specim... 10/26/19 Urine Culture - Final, Complete 10/26/19 Blood Culture - Preliminary, Resulted No growth after 24 hours . All specim... Discharge Medications Scheduled Alendronate Sodium (Alendronate Sodium) 70 Mg Tab, 70 MG PO QWEEK, (Reported) WEDNESDAYS Aspirin (Aspir 81) 81 Mg Tab, 81 MG PO QHS, (Reported) Buspirone HCl (Buspirone HCl) 10 Mg Tablet, 10 MG PO TID, (Reported) Citalopram Hydrobromide (Celexa) 40 Mg Tablet, 40 MG PO QHS, (Reported) Donepezil HCl (Aricept) 5 Mg Tablet, 5 MG PO QHS, (Reported) Ergocalciferol (Vitamin D2) (Vitamin D2) 50,000 Units Cap, 50,000 UNITS PO Q2WK, (Reported) EVERY OTHER WEDNESDAY Gabapentin (Gabapentin) 300 Mg Capsule, 300 MG PO TID, (Reported) Levetiracetam (Keppra) 500 Mg Tablet, 500 MG PO BID, (Reported) Quetiapine Fumarate (Quetiapine Fumarate) 25 Mg Tablet, 25 MG PO QHS, (Reported) Scheduled PRN Hydrocodone/Acetaminophen (Hydrocodone-Acetamin 5-325 mg) 1 Each Tablet, 1 TAB PO Q8HP PRN for SEVERE PAIN (PS 8-10) Ondansetron HCl (Ondansetron HCl) 4 Mg Tablet, 4 MG PO Q6H PRN for NAUSEA OR VOMITING, (Reported) Tramadol HCl (Tramadol HCl) 50 Mg Tab, 50 MG PO TID PRN for PAIN, (Reported) Allergies Coded Allergies: ciprofloxacin (Verified Allergy, Unknown, 10/26/19) tamsulosin (Verified Allergy, Unknown, 10/26/19) DEMETRIA RAMOS MD Oct 28, 2019 10:14
[2019-10-28 14:00] VITALS: BP 142/85
== END 2019-10-28 16:40 | disposition home health service (06) | DRG 690 ==
LOC: EDBD 18:17 → M ED 18:17 → M ED INP 10-27 01:02 → M MSPAV 10-27 02:36
PROVIDERS: ADMIT Internal Medicine; ATTEND Internal Medicine
DX: N39.0 Urinary tract infection, site not specified (principal); F03.90 Unspecified dementia, unspecified severity, without behavioral disturbance, psychotic disturbance, mood disturbance, and anxiety; F41.9 Anxiety disorder, unspecified; F32.9 Major depressive disorder, single episode, unspecified; G40.909 Epilepsy, unspecified, not intractable, without status epilepticus; Z79.82 Long term (current) use of aspirin; Z79.899 Other long term (current) drug therapy; Z88.8 Allergy status to other drugs, medicaments and biological substances

== ENCOUNTER 2019-11-21 11:42 | Inpatient (IN) | payer MEDICARE ==
[~2019-11-21] VITALS: Ht 165.1 cm; Wt 63.9 kg
[~2019-11-21 11:42] MED LIST changes: +ARIC1TAB PO; +BUSP10TA; +BUSP10TA PO; +CELE40TA PO; +CITA40TA4; +DONE5TAB82; +GABA-843 PO; +HYDR-4571 PO; +KEPP1TAB PO; +ONDA-83 PO; +QUET1TAB7; +QUET1TAB7 PO; +VITA50005 PO
[2019-11-21 12:48] LABS: BASO % 0.6 % (0.0-1.0); EOS % 0.4 % (0.0-3.0); HEMATOCRIT 41.7 % (36.0-47.0); HEMOGLOBIN 13.2 g/dl (12.0-15.5); LYMPH # 1.4 10^3/uL (1.5-5.0); LYMPH % 30.8 % (24.0-44.0); MEAN CORPUSCULAR HEMOGLOBIN 31.4 pg (27.0-33.0); MEAN CORPUSCULAR HGB CONC 31.7 g/dl (32.0-36.5); MONO # 0.6 10^3/uL (0.0-0.8); NEUTROPHILS # 2.6 10^3/uL (1.5-8.5); PLATELET COUNT, AUTOMATED 198 10^3/uL (150-450); RED BLOOD COUNT 4.21 10^6/uL (4.00-5.40); WHITE BLOOD COUNT 4.7 10^3/uL (4.0-10.0)
[2019-11-21 13:13] LABS: ACETAMINOPHEN LEVEL < 2.0 UG/ML (10.0-30.0); ALBUMIN 3.7 GM/DL (3.2-5.2); ALT/SGPT 25 U/L (12-78); BILIRUBIN,DIRECT 0.1 MG/DL (0.0-0.2); BILIRUBIN,TOTAL 0.6 MG/DL (0.2-1.0); BLOOD UREA NITROGEN 25 MG/DL (7-18); CALCIUM LEVEL 9.4 MG/DL (8.8-10.2); CARBON DIOXIDE LEVEL 22 MEQ/L (21-32); CHLORIDE LEVEL 107 MEQ/L (98-107); ETHYL ALCOHOL (ETHANOL) 0.004 % (0.000-0.010); GLUCOSE, FASTING 131 MG/DL (70-100); LIPASE 165 U/L (73-393); POTASSIUM SERUM 4.9 MEQ/L (3.5-5.1); SALICYLATE LEVEL < 1.7 MG/DL (5.0-30.0); SODIUM LEVEL 139 MEQ/L (136-145); TOTAL PROTEIN 7.2 GM/DL (6.4-8.2)
[2019-11-21] MEDS ORDERED: traMADol 50 MG TAB PO ONE (14:00)
[2019-11-21] MEDS ORDERED: NS 500 ML IV ONE (14:00)
[2019-11-21] MEDS ORDERED: PILL CUTTER 1 EACH XX ONE (14:12)
[2019-11-21] MEDS: NS 1,000 ML IV SCH (14:33)
[2019-11-21] MEDS ORDERED: ONDANSETRON 4 MG TAB (S0181) PO PRN (14:45)
[2019-11-21 15:30] VITALS: BP 139/85
[2019-11-21 16:00] VITALS: BP 167/89
[2019-11-21 16:30] VITALS: BP 158/84
[2019-11-21] MEDS: busPIRone 10 MG TAB PO SCH ×2 (17:28→20:16)
[2019-11-21] MEDS: GABAPENTIN 300 MG CAP PO SCH ×2 (17:29→20:16)
[2019-11-21 18:30] VITALS: BP 155/78
--- NOTE | 2019-11-21 20:03 | HPE ---
DATE OF ADMISSION: 11/21/2019 PRIMARY CARE PHYSICIAN: Unknown. CHIEF COMPLAINT: Not eating and drinking. HISTORY OF THE PRESENT ILLNESS: This is an 84-year-old female who lives alone, managed by her daughter, Sushma, with a history of dementia, seizure disorder, hypertension, anxiety, depression, was found by the caregiver to have not been eating for the last few days and not been drinking and was brought in. The patient complains of shingles that starts in the left shoulder all the way down the left hand, unable to sleep due to severe pain. Describes throbbing without any overt lesions. No fever or chills at home. No nausea, vomiting, abdominal pain, diarrhea. No cough, shortness of breath, chills, palpitations, lightheadedness, dizziness. Denies any generalized weakness. The patient says that she has been depressed and had gotten into a fight with her daughter, who then decided to take her medications which she has not taken for the past week. The patient states, "I'm miserable." Unable to sleep. "I hate it," describing the pain as a throbbing pain 9/10 on a pain scale in the left arm. The patient says that Sushma, her daughter, has been gone for a week. She has not been eating well but does have Meals on Wheels. In the emergency room (ER), CBC, metabolic panel have been reviewed. Hospitalist was called to admit for dehydration. PAST MEDICAL HISTORY: Anxiety, depression, dementia, hypertension, seizure disorder, shingles. PAST SURGICAL HISTORY: Cholecystectomy. SOCIAL HISTORY: A pack a day for 2 years, quit when she was a teenager. No alcohol use. No recreational drug use. Lives at home. Healthcare proxy is Sushma. 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 Has Meals on Wheels. Currently a FULL CODE. FAMILY HISTORY: Noncontributory due to age. HOME MEDICATIONS: - alendronate 70 mg weekly - aspirin 81 mg daily - buspirone 10 mg three times a day - Celexa 40 mg nightly - Aricept 5 mg nightly - vitamin D 50,000 units every 2 weeks - gabapentin 300 mg three times a day - Keppra 500 mg twice a day - quetiapine 25 mg nightly - tramadol 50 mg three times a day as needed for pain - Zofran 4 mg every 6 hours as needed for nausea/vomiting - hydrocodone/acetaminophen one tablet every 8 hours as needed for severe pain ALLERGIES: To CIPRO and TAMSULOSIN. REVIEW OF SYSTEMS: Per history of the present illness; 12-point system otherwise negative. PHYSICAL EXAMINATION: Temperature 97.7, pulse 94, respiratory rate 18, blood pressure 152/73, 97% on room air. Generally, awake, alert, oriented to person and place, confused to year, answering questions appropriately. No jugular venous distention (JVD). No thyromegaly. Dry mucous membranes. Lungs are clear to auscultation. No wheezing, rales or rhonchi. Heart: S1, S2, sinus rhythm. Abdomen is obese, soft, nontender, nondistended. Extremities: No cyanosis or clubbing. LABORATORY DATA: White count 4.7, hemoglobin 13, hematocrit 41, platelet count 198. Sodium 139, potassium 4.9, chloride 107, bicarbonate 22, BUN 25, creatinine 1, glucose of 131, calcium 9.4, total bilirubin 0.6, direct bilirubin 0.1, AST 37, ALT 25, alkaline phosphatase 63, albumin 3.7, lipase of 165. ASSESSMENT AND PLAN: 84-year-old female lives alone at home, brought in due to decreased oral intake at home, usually cared for by her daughter, Sushma, had a phone number is [phone], lives in [place], [place]. CURRENT ISSUES: 1. Failure to thrive. Patient admits to feeling slightly depressed and not eating well at home. She has a caregiver that comes twice a week, otherwise lives alone. May need placement. Patient and family services (PFS) has been consulted. Patient was given IV fluids, resumed on a regular diet, resume on all her home medications. 2. Shingles. Gabapentin - titrate for better control. 3. History of seizure disorder. Continue on Keppra. 4. Depression. Continue on buspirone and Seroquel. 5. Vitamin D deficiency. Continue on supplementation every 2 weeks with vitamin D 50,000 units. 6. Chronic dementia. On Aricept 5 mg nightly. MTDD
[2019-11-21] MEDS: QUEtiapine FUMARATE 25 MG TAB PO SCH (20:16)
[2019-11-21] MEDS: CitaloPRAM (CeleXA) 20 MG TAB PO SCH (20:16)
[2019-11-21] MEDS: levETIRAcetam 250MG TABLET (KEPPRA) PO SCH (20:16)
[2019-11-21] MEDS: DONEPEZIL 5 MG TAB PO SCH (20:16)
[2019-11-21] MEDS: ASPIRIN 81 MG ENTERIC TAB PO SCH (20:16)
[2019-11-21 22:00] VITALS: BP 172/92
[2019-11-22 01:25] VITALS: BP 150/78
[2019-11-22] MEDS: NS 1,000 ML IV SCH (03:35)
[2019-11-22 06:00] VITALS: BP 150/77
[2019-11-22 06:10] LABS: HEMATOCRIT 36.9 % (36.0-47.0); HEMOGLOBIN 11.4 g/dl (12.0-15.5); MEAN CORPUSCULAR HEMOGLOBIN 31.5 pg (27.0-33.0); MEAN CORPUSCULAR HGB CONC 30.9 g/dl (32.0-36.5); MEAN CORPUSCULAR VOLUME 101.9 fl (80.0-96.0); PLATELET COUNT, AUTOMATED 171 10^3/uL (150-450); RED BLOOD COUNT 3.62 10^6/uL (4.00-5.40); WHITE BLOOD COUNT 5.3 10^3/uL (4.0-10.0)
[2019-11-22 06:51] LABS: ALT/SGPT 20 U/L (12-78); BILIRUBIN,TOTAL 0.4 MG/DL (0.2-1.0); BLOOD UREA NITROGEN 18 MG/DL (7-18); CALCIUM LEVEL 8.1 MG/DL (8.8-10.2); CARBON DIOXIDE LEVEL 23 MEQ/L (21-32); CHLORIDE LEVEL 112 MEQ/L (98-107); CREATININE FOR GFR 0.88 MG/DL (0.55-1.30); GLOMERULAR FILTRATION RATE > 60.0 (>32); GLUCOSE, FASTING 90 MG/DL (70-100); POTASSIUM SERUM 3.4 MEQ/L (3.5-5.1); SODIUM LEVEL 143 MEQ/L (136-145); TOTAL PROTEIN 6.2 GM/DL (6.4-8.2)
[2019-11-22] MEDS ORDERED: POTASSIUM CHLORIDE 10% LIQ 20 MEQ/15 ML UDC PO ONE (08:30)
[2019-11-22] MEDS: GABAPENTIN 300 MG CAP PO SCH ×3 (10:00→20:44)
[2019-11-22] MEDS: levETIRAcetam 250MG TABLET (KEPPRA) PO SCH ×2 (10:00→20:44)
[2019-11-22] MEDS: busPIRone 10 MG TAB PO SCH ×3 (10:00→20:43)
--- NOTE | 2019-11-22 11:32 | IPNPDOC ---
Date Seen The patient was seen on 11/22/19. Progress Note Sushma resendiz [phone] home-preferred VS, I&O, 24H, [place] Vital Signs/I&O Vital Signs Date Time Temp Pulse Resp B/P (MAP) Pulse Ox O2 Delivery O2 Flow Rate FiO2 11/22/19 06:00 97.6 79 20 150/77 (101) 95 Room Air I&O- Last 24 Hours up to 6 AM 11/22/19 05:59 Intake Total 1050 ml Output Total 0 ml Balance 1050 ml Laboratory Data 24H LABS Laboratory Tests 2 11/21/19 12:29: Immature Granulocyte % (Auto) 0.2, Neutrophils (%) (Auto) 56.0, Lymphocytes (%) (Auto) 30.8, Monocytes (%) (Auto) 12.0H, Eosinophils (%) (Auto) 0.4, Basophils (%) (Auto) 0.6, Neutrophils # (Auto) 2.6, Lymphocytes # (Auto) 1.4L, Monocytes # (Auto) 0.6, Eosinophils # (Auto) 0.0, Basophils # (Auto) 0.0, Nucleated Red Blood Cells % (auto) 0.0, Anion Gap 10, Glomerular Filtration Rate 56.0, Calcium Level 9.4, Total Bilirubin 0.6, Direct Bilirubin 0.1, Aspartate Amino Transf (AST/SGOT) 37, Alanine Aminotransferase (ALT/SGPT) 25, Alkaline Phosphatase 63, Total Protein 7.2, Albumin 3.7, Albumin/Globulin Ratio 1.06, Lipase 165, Salicylates Level < 1.7L, Acetaminophen Level < 2.0L, Ethyl Alcohol Level 0.004 11/22/19 05:43: Nucleated Red Blood Cells % (auto) 0.0, Anion Gap 8, Glomerular Filtration Rate > 60.0, Calcium Level 8.1L, Total Bilirubin 0.4, Aspartate Amino Transf (AST/SGOT) 15, Alanine Aminotransferase (ALT/SGPT) 20, Alkaline Phosphatase 52, Total Protein 6.2L, Albumin 3.0L, Albumin/Globulin Ratio 0.94L, Thyroid Stimulating Hormone (TSH) 1.530 CBC/BMP Laboratory Tests 11/21/19 12:29 11/22/19 05:43 TONIE GARRETT MD Nov 22, 2019 11:32
[2019-11-22] MEDS: amLODIPine 5 MG TAB PO SCH ×2 (12:06→20:44)
[2019-11-22 14:00] VITALS: BP 148/78
--- NOTE | 2019-11-22 14:14 | IPN ---
DATE: 11/21/2019 Patient, despite pressure of 150-172, patient denies any chest pain, pressure tightness, shortness of breath, headaches, changes in vision. Patient says that she and her daughter have not been getting along well for the past few months. Per the daughter, however, patient has been increasingly difficult at home and has been belligerent. She has refused to eat for the past 3 days and ,"I can't take care of her anymore". According to the patient's daughter Sushma, the patient had got up in the middle of the night, grabbed a knife in the kitchen and was walking around with it at home. Daughter, however, does not say if the patient felt threatened or paranoid at home prompting the patient to grab a knife. This has been very concerning to her and she has refused to take care of her mother at home now. Patient, otherwise has been eating and drinking. Overnight, no complaints of nausea, vomiting, abdominal pain, chest pain pressure, tightness, shortness of breath, palpitations, lightheadedness. No dysuria, urgency or frequency. No neck rigidity. No chills. Vital Signs: Temperature 97.6, pulse 79, respiratory rate 20, blood pressure 150/77, 95% in room air. Generally patient is awake, alert, oriented to person and place. Answering questions appropriately. Lungs are clear to auscultation. No wheezing, rales or rhonchi. Heart: S1, S2 sinus rhythm. Abdomen is soft, nontender, nondistended. Positive bowel sounds. Extremities: No cyanosis, clubbing or pitting edema. Laboratory data and imaging studies have been reviewed. ASSESSMENT/PLAN: This is an 84-year-old female with history of anxiety, depression, dementia, hypertension, seizure disorder and shingles, presents to the emergency room after a few days of refusing to eat at home and has been much more difficult. Patient complains of pain on her shingles, which is improved with her gabapentin dose. Current Issues: 1. Worsening dementia now with possible paranoid symptoms. Patient has been getting a knife in the middle of the night and walks around with it. She, however, denies that she feels threatened or denies any actual paranoia. According to the daughter Sushma is unable to take care of her anymore and is requesting for placement. For the worsening confusion, Will check urinalysis (UA) with reflex culture and treat if positive. Patient otherwise, denies any dysuria, urgency or frequency, fever, chills or any flank pain. 2. Dementia: Patient will need to be placed in a locked unit, especially with daughter saying that she has been grabbing a knife at home and walking around with it in the middle of the night. Defer to patient family services (PFS) to confirm these statements. 3. Depression: Continue on Celexa. 4. Shingles: Continue on gabapentin, tramadol. MTDD
[2019-11-22] MEDS: CitaloPRAM (CeleXA) 20 MG TAB PO SCH (20:43)
[2019-11-22] MEDS: ASPIRIN 81 MG ENTERIC TAB PO SCH (20:44)
[2019-11-22] MEDS: DONEPEZIL 5 MG TAB PO SCH (20:44)
[2019-11-22] MEDS: QUEtiapine FUMARATE 25 MG TAB PO SCH (20:44)
[2019-11-22 22:00] VITALS: BP 128/80
[2019-11-23 06:00] VITALS: BP 128/85
[2019-11-23] MEDS: amLODIPine 5 MG TAB PO SCH ×2 (09:00→20:55)
[2019-11-23] MEDS: GABAPENTIN 300 MG CAP PO SCH ×3 (09:51→20:55)
[2019-11-23] MEDS: busPIRone 10 MG TAB PO SCH ×3 (09:51→20:55)
[2019-11-23] MEDS: levETIRAcetam 250MG TABLET (KEPPRA) PO SCH ×2 (09:51→20:55)
[2019-11-23 13:01] LABS: BLOOD UREA NITROGEN 15 MG/DL (7-18); CALCIUM LEVEL 8.7 MG/DL (8.8-10.2); CARBON DIOXIDE LEVEL 24 MEQ/L (21-32); CHLORIDE LEVEL 112 MEQ/L (98-107); CREATININE FOR GFR 0.94 MG/DL (0.55-1.30); GLOMERULAR FILTRATION RATE > 60.0 (>32); GLUCOSE, FASTING 94 MG/DL (70-100); POTASSIUM SERUM 4.3 MEQ/L (3.5-5.1); SODIUM LEVEL 145 MEQ/L (136-145)
--- NOTE | 2019-11-23 13:05 | IPN ---
DATE: 11/23/2019 SUBJECTIVE: Patient is sleeping on her right side due to persistent discomfort on the left side where she has the shingles. There is no new eruptive lesions. The patient says that she has had this for a month, but still very painful despite being on gabapentin. Per the daughter, the patient has been increasingly difficult to live with, refusing to eat as well as refusing to take her medications. According to the daughter Sushma, the patient has also been "drug seeking." The patient's daughter is unsure whether the patient simply has been forgetting that she has already received her medications, but has been asking for her gabapentin. The patient has had prior difficulty with being weaned off the Xanax about a year ago and the daughter is concerned that she is unable to take care of her mother at home anymore and is requesting for placement. The patient understands that the dynamics between her and her daughter have changed and that they have had a much more difficult relationship this year. She is open to being placed in a facility for future care. She currently says that the pain at the shingles area sometimes gets her depressed and often times it prompts her to not eat or take her medications. The patient has been very cooperative during this admission, there have been no signs of aggression. The daughter was concerned about her waking up in the middle of the night, going into the kitchen and grabbing a knife and walking around with a knife in the middle of the night. This was the last time that the daughter was willing to take care of the mother. No other issues per nursing. Temperature 98, pulse 76, respiratory rate 17, blood pressure 128/85, 96% on room air. Generally patient is awake, alert, oriented to herself only. She is pleasant, answering questions and cooperative. No jugular venous distention (JVD). No thyromegaly. Moist mucous membranes. Lungs are clear to auscultation. No wheezing or rales. Heart S1, S2 sinus rhythm. Abdomen is soft, nontender, nondistended. Extremities no pitting edema. The patient does have some erythema along the left mid axillary area. Laboratory data has been reviewed. ASSESSMENT/PLAN: 84-year-old awaiting placement. The patient has been increasingly demented with possible psychotic features, grabbing a knife in the middle of the night and brandishing it at home, cannot be controlled by her daughter. She has a history of anxiety, depression, hypertension, seizure disorder and shingles, has been refusing to eat, admitted for dehydration and placement. Current Issues: 1. Worsening dementia now with possible paranoid symptoms. Patient was brandishing a knife at home in the middle of the night, and daughter is unable to care for her at home now and the patient will need to be placed. Patient and family services (PFS) has been consulted. 2. Depression. On chronic Celexa. 3. Shingles. Continue on gabapentin. Monitor tramadol due to increased risk of seizure. Trial of capsaicin cream. MTDD
[2019-11-23] MEDS: CAPSAICIN 0.025% CR 60 GM TOP SCH ×3 (13:51→20:55)
[2019-11-23 14:00] VITALS: BP 130/72
[2019-11-23] MEDS: CitaloPRAM (CeleXA) 20 MG TAB PO SCH (20:55)
[2019-11-23] MEDS: QUEtiapine FUMARATE 25 MG TAB PO SCH (20:55)
[2019-11-23] MEDS: DONEPEZIL 5 MG TAB PO SCH (20:55)
[2019-11-23] MEDS: ASPIRIN 81 MG ENTERIC TAB PO SCH (20:55)
[2019-11-23 22:00] VITALS: BP 148/90
[2019-11-24 06:00] VITALS: BP 140/86
[2019-11-24] MEDS: GABAPENTIN 300 MG CAP PO SCH ×3 (10:06→20:06)
[2019-11-24] MEDS: CAPSAICIN 0.025% CR 60 GM TOP SCH ×4 (10:06→20:06)
[2019-11-24] MEDS: busPIRone 10 MG TAB PO SCH ×3 (10:06→20:06)
[2019-11-24] MEDS: levETIRAcetam 250MG TABLET (KEPPRA) PO SCH ×2 (10:06→20:06)
[2019-11-24] MEDS: amLODIPine 5 MG TAB PO SCH ×2 (10:06→20:06)
[2019-11-24 14:00] VITALS: BP 150/82
--- NOTE | 2019-11-24 17:10 | IPNPDOC ---
Date Seen The patient was seen on 11/24/19. Progress Note CHANGE TO ALC/SNF STATUS PT HAS NO ACUTE MEDICAL ISSUES. PFS TO ARRANGE PLACEMENT. VS, I&O, 24H, Fishbone Vital Signs/I&O Vital Signs Date Time Temp Pulse Resp B/P (MAP) Pulse Ox O2 Delivery O2 Flow Rate FiO2 11/24/19 14:00 96.9 89 18 150/82 (104) 96 Room Air I&O- Last 24 Hours up to 6 AM 11/24/19 06:00 Intake Total 540 ml Output Total 350 ml Balance 190 ml Laboratory Data Microbiology Microbiology 11/23/19 Urine Culture, Received Pending TONIE GARRETT MD Nov 24, 2019 17:10
[2019-11-24] MEDS: QUEtiapine FUMARATE 25 MG TAB PO SCH (20:04)
[2019-11-24] MEDS: ASPIRIN 81 MG ENTERIC TAB PO SCH (20:04)
[2019-11-24] MEDS: DONEPEZIL 5 MG TAB PO SCH (20:06)
[2019-11-24] MEDS: CitaloPRAM (CeleXA) 20 MG TAB PO SCH (20:06)
[2019-11-25 06:00] VITALS: BP 153/88
[2019-11-25] MEDS: levETIRAcetam 250MG TABLET (KEPPRA) PO SCH ×2 (10:03→20:10)
[2019-11-25] MEDS: GABAPENTIN 300 MG CAP PO SCH ×3 (10:03→20:10)
[2019-11-25] MEDS: amLODIPine 5 MG TAB PO SCH ×2 (10:03→20:12)
[2019-11-25] MEDS: busPIRone 10 MG TAB PO SCH ×3 (10:04→20:10)
[2019-11-25] MEDS: CAPSAICIN 0.025% CR 60 GM TOP SCH ×4 (10:04→20:12)
[2019-11-25] MEDS: CitaloPRAM (CeleXA) 20 MG TAB PO SCH (20:10)
[2019-11-25] MEDS: ASPIRIN 81 MG ENTERIC TAB PO SCH (20:10)
[2019-11-25] MEDS: DONEPEZIL 5 MG TAB PO SCH (20:10)
[2019-11-25] MEDS: QUEtiapine FUMARATE 25 MG TAB PO SCH (20:10)
[2019-11-26 06:00] VITALS: BP 144/86
[2019-11-26] MEDS: amLODIPine 5 MG TAB PO SCH ×2 (08:02→20:11)
[2019-11-26] MEDS: CAPSAICIN 0.025% CR 60 GM TOP SCH ×4 (08:02→20:10)
[2019-11-26] MEDS: busPIRone 10 MG TAB PO SCH ×3 (08:02→20:09)
[2019-11-26] MEDS: GABAPENTIN 300 MG CAP PO SCH ×3 (08:02→20:09)
[2019-11-26] MEDS: levETIRAcetam 250MG TABLET (KEPPRA) PO SCH ×2 (08:02→20:09)
[2019-11-26] MEDS: ACETAMINOPHEN TAB 650MG DOSE (2X325MG) PO PRN (14:58)
[2019-11-26] MEDS: CitaloPRAM (CeleXA) 20 MG TAB PO SCH (20:09)
[2019-11-26] MEDS: DONEPEZIL 5 MG TAB PO SCH (20:09)
[2019-11-26] MEDS: ASPIRIN 81 MG ENTERIC TAB PO SCH (20:09)
[2019-11-26] MEDS: QUEtiapine FUMARATE 25 MG TAB PO SCH (20:09)
[2019-11-27 06:00] VITALS: BP 118/74
[2019-11-27] MEDS: busPIRone 10 MG TAB PO SCH ×3 (09:01→21:02)
[2019-11-27] MEDS: GABAPENTIN 300 MG CAP PO SCH ×3 (09:01→21:03)
[2019-11-27] MEDS: CAPSAICIN 0.025% CR 60 GM TOP SCH ×4 (09:03→21:01)
[2019-11-27] MEDS: amLODIPine 5 MG TAB PO SCH ×2 (09:03→21:02)
[2019-11-27] MEDS: levETIRAcetam 250MG TABLET (KEPPRA) PO SCH ×2 (09:03→21:02)
[2019-11-27] MEDS: HEPARIN SOD (PORCINE) 5000 UNITS/ML VIAL (J1644 PER 1000UNITS) SQ SCH ×2 (12:08→21:03)
[2019-11-27] MEDS ORDERED: GI COCKTAIL 50ML BTL(HYOSCYAMINE/MAALOX/LIDOCAINE VISCOUS)(1:3:1) PO PRN (13:15)
[2019-11-27] MEDS ORDERED: GI COCKTAIL 50ML BTL(HYOSCYAMINE/MAALOX/LIDOCAINE VISCOUS)(1:3:1) PO ONE (13:15)
[2019-11-27] MEDS: traMADol 50 MG TAB PO PRN (13:50)
[2019-11-27] MEDS ORDERED: TUBERCULIN PPD 5 UNITS/0.1 ML ID ONE (19:00)
[2019-11-27] MEDS: ASPIRIN 81 MG ENTERIC TAB PO SCH (21:02)
[2019-11-27] MEDS: DONEPEZIL 5 MG TAB PO SCH (21:02)
[2019-11-27] MEDS: QUEtiapine FUMARATE 25 MG TAB PO SCH (21:02)
[2019-11-27] MEDS: CitaloPRAM (CeleXA) 20 MG TAB PO SCH (21:02)
[2019-11-27] MEDS: ACETAMINOPHEN TAB 650MG DOSE (2X325MG) PO PRN (21:09)
[2019-11-28 06:00] VITALS: BP 124/72
[2019-11-28 08:49] VITALS: BP 146/78
[2019-11-28] MEDS: HEPARIN SOD (PORCINE) 5000 UNITS/ML VIAL (J1644 PER 1000UNITS) SQ SCH ×2 (08:50→20:39)
[2019-11-28] MEDS: GABAPENTIN 300 MG CAP PO SCH ×3 (08:51→20:37)
[2019-11-28] MEDS: amLODIPine 5 MG TAB PO SCH ×2 (08:51→20:38)
[2019-11-28] MEDS: CAPSAICIN 0.025% CR 60 GM TOP SCH ×4 (08:51→20:39)
[2019-11-28] MEDS: levETIRAcetam 250MG TABLET (KEPPRA) PO SCH ×2 (08:51→20:38)
[2019-11-28] MEDS: busPIRone 10 MG TAB PO SCH ×3 (08:51→20:37)
[2019-11-28] MEDS: ACETAMINOPHEN TAB 650MG DOSE (2X325MG) PO PRN (09:01)
[2019-11-28] MEDS: traMADol 50 MG TAB PO PRN ×2 (15:45→19:07)
[2019-11-28] MEDS: ASPIRIN 81 MG ENTERIC TAB PO SCH (20:37)
[2019-11-28] MEDS: CitaloPRAM (CeleXA) 20 MG TAB PO SCH (20:38)
[2019-11-28] MEDS: DONEPEZIL 5 MG TAB PO SCH (20:38)
[2019-11-28] MEDS: QUEtiapine FUMARATE 25 MG TAB PO SCH (20:38)
[2019-11-28] MEDS: RAMELTEON 8 MG TAB (ROZEREM) PO SCH (20:38)
[2019-11-28 22:00] VITALS: BP 156/86
[2019-11-29 06:00] VITALS: BP 141/88
[2019-11-29] MEDS: amLODIPine 5 MG TAB PO SCH ×2 (09:00→20:40)
[2019-11-29 09:48] VITALS: BP 134/70
[2019-11-29] MEDS: HEPARIN SOD (PORCINE) 5000 UNITS/ML VIAL (J1644 PER 1000UNITS) SQ SCH ×2 (09:51→20:37)
[2019-11-29] MEDS: levETIRAcetam 250MG TABLET (KEPPRA) PO SCH ×2 (09:51→20:36)
[2019-11-29] MEDS: busPIRone 10 MG TAB PO SCH ×3 (09:51→20:37)
[2019-11-29] MEDS: CAPSAICIN 0.025% CR 60 GM TOP SCH ×4 (09:51→20:38)
[2019-11-29] MEDS: GABAPENTIN 300 MG CAP PO SCH ×3 (09:51→20:37)
[2019-11-29] MEDS: ACETAMINOPHEN TAB 650MG DOSE (2X325MG) PO PRN ×2 (10:28→15:26)
[2019-11-29] MEDS ORDERED: ANEXSIA, NORCO 7.5MG/325MG TABLET(HYDROCODONE/APAP) PO PRN (11:00)
[2019-11-29] MEDS ORDERED: FUROSEMIDE 20 MG TAB PO ONE (15:30)
[2019-11-29 15:46] VITALS: BP 142/70
[2019-11-29] MEDS: CALCIUM CARBONATE 500 MG CHEW U/D PO PRN (15:47)
[2019-11-29] MEDS ORDERED: PPD DOCUMENTATION ENTRY MISC XX ONE (19:00)
[2019-11-29] MEDS: ASPIRIN 81 MG ENTERIC TAB PO SCH (20:36)
[2019-11-29] MEDS: DONEPEZIL 5 MG TAB PO SCH (20:37)
[2019-11-29] MEDS: CitaloPRAM (CeleXA) 20 MG TAB PO SCH (20:37)
[2019-11-29] MEDS: QUEtiapine FUMARATE 25 MG TAB PO SCH (20:37)
[2019-11-29] MEDS: RAMELTEON 8 MG TAB (ROZEREM) PO SCH (20:37)
[2019-11-30 06:00] VITALS: BP 155/74
[2019-11-30 08:30] VITALS: BP 110/80
[2019-11-30] MEDS: amLODIPine 5 MG TAB PO SCH ×2 (09:00→20:04)
[2019-11-30] MEDS: MIRALAX *UNIT DOSE* 17GM PACKET PO SCH (09:00)
[2019-11-30] MEDS: HEPARIN SOD (PORCINE) 5000 UNITS/ML VIAL (J1644 PER 1000UNITS) SQ SCH ×2 (09:29→20:04)
[2019-11-30] MEDS: ACETAMINOPHEN TAB 650MG DOSE (2X325MG) PO PRN ×2 (09:29→15:56)
[2019-11-30] MEDS: busPIRone 10 MG TAB PO SCH ×3 (09:30→20:03)
[2019-11-30] MEDS: GABAPENTIN 300 MG CAP PO SCH ×3 (09:30→20:03)
[2019-11-30] MEDS: levETIRAcetam 250MG TABLET (KEPPRA) PO SCH ×2 (09:30→20:03)
[2019-11-30] MEDS: FUROSEMIDE 20 MG TAB PO SCH (09:30)
[2019-11-30] MEDS: CAPSAICIN 0.025% CR 60 GM TOP SCH ×4 (10:12→20:04)
[2019-11-30] MEDS: traMADol 50 MG TAB PO PRN (10:32)
[2019-11-30] MEDS: CALCIUM CARBONATE 500 MG CHEW U/D PO PRN ×2 (13:12→17:39)
[2019-11-30 14:00] VITALS: BP 118/78
[2019-11-30] MEDS: QUEtiapine FUMARATE 25 MG TAB PO SCH (20:03)
[2019-11-30] MEDS: DONEPEZIL 5 MG TAB PO SCH (20:03)
[2019-11-30] MEDS: RAMELTEON 8 MG TAB (ROZEREM) PO SCH (20:03)
[2019-11-30] MEDS: CitaloPRAM (CeleXA) 20 MG TAB PO SCH (20:03)
[2019-11-30] MEDS: ASPIRIN 81 MG ENTERIC TAB PO SCH (20:03)
[2019-12-01] MEDS: GABAPENTIN 300 MG CAP PO SCH ×3 (09:51→22:13)
[2019-12-01] MEDS: FUROSEMIDE 20 MG TAB PO SCH (09:51)
[2019-12-01] MEDS: levETIRAcetam 250MG TABLET (KEPPRA) PO SCH ×2 (09:51→22:13)
[2019-12-01] MEDS: CAPSAICIN 0.025% CR 60 GM TOP SCH ×4 (09:51→22:12)
[2019-12-01] MEDS: busPIRone 10 MG TAB PO SCH ×3 (09:51→22:12)
[2019-12-01] MEDS: MIRALAX *UNIT DOSE* 17GM PACKET PO SCH (09:52)
[2019-12-01] MEDS: HEPARIN SOD (PORCINE) 5000 UNITS/ML VIAL (J1644 PER 1000UNITS) SQ SCH ×2 (09:52→22:12)
[2019-12-01] MEDS: amLODIPine 5 MG TAB PO SCH ×2 (09:55→21:00)
[2019-12-01] MEDS: CALCIUM CARBONATE 500 MG CHEW U/D PO PRN (13:56)
[2019-12-01] MEDS: traMADol 50 MG TAB PO PRN (13:57)
[2019-12-01 14:00] VITALS: BP 125/78
[2019-12-01] MEDS: RAMELTEON 8 MG TAB (ROZEREM) PO SCH (22:13)
[2019-12-01] MEDS: ASPIRIN 81 MG ENTERIC TAB PO SCH (22:13)
[2019-12-01] MEDS: QUEtiapine FUMARATE 25 MG TAB PO SCH (22:14)
[2019-12-01] MEDS: DONEPEZIL 5 MG TAB PO SCH (22:15)
[2019-12-01] MEDS: CitaloPRAM (CeleXA) 20 MG TAB PO SCH (22:15)
[2019-12-02 06:00] VITALS: BP 127/75
[2019-12-02 08:47] VITALS: BP 119/68
[2019-12-02] MEDS: CAPSAICIN 0.025% CR 60 GM TOP SCH ×4 (08:47→21:13)
[2019-12-02] MEDS: HEPARIN SOD (PORCINE) 5000 UNITS/ML VIAL (J1644 PER 1000UNITS) SQ SCH ×2 (08:48→21:13)
[2019-12-02] MEDS: busPIRone 10 MG TAB PO SCH ×3 (08:48→21:11)
[2019-12-02] MEDS: levETIRAcetam 250MG TABLET (KEPPRA) PO SCH ×2 (08:48→21:12)
[2019-12-02] MEDS: FUROSEMIDE 20 MG TAB PO SCH (08:48)
[2019-12-02] MEDS: MIRALAX *UNIT DOSE* 17GM PACKET PO SCH (08:48)
[2019-12-02] MEDS: GABAPENTIN 300 MG CAP PO SCH ×3 (08:48→21:11)
[2019-12-02] MEDS: amLODIPine 5 MG TAB PO SCH ×2 (08:49→21:00)
[2019-12-02] MEDS: traMADol 50 MG TAB PO PRN (13:51)
[2019-12-02] MEDS: RAMELTEON 8 MG TAB (ROZEREM) PO SCH (21:11)
[2019-12-02] MEDS: QUEtiapine FUMARATE 25 MG TAB PO SCH (21:11)
[2019-12-02] MEDS: ASPIRIN 81 MG ENTERIC TAB PO SCH (21:11)
[2019-12-02] MEDS: CitaloPRAM (CeleXA) 20 MG TAB PO SCH (21:12)
[2019-12-02] MEDS: DONEPEZIL 5 MG TAB PO SCH (21:12)
[2019-12-03 06:00] VITALS: BP 112/58
[2019-12-03] MEDS: CAPSAICIN 0.025% CR 60 GM TOP SCH (10:12)
[2019-12-03] MEDS: MIRALAX *UNIT DOSE* 17GM PACKET PO SCH (10:12)
[2019-12-03] MEDS: FUROSEMIDE 20 MG TAB PO SCH (10:12)
[2019-12-03] MEDS: busPIRone 10 MG TAB PO SCH ×3 (10:12→20:33)
[2019-12-03] MEDS: HEPARIN SOD (PORCINE) 5000 UNITS/ML VIAL (J1644 PER 1000UNITS) SQ SCH ×2 (10:13→20:32)
[2019-12-03] MEDS: GABAPENTIN 300 MG CAP PO SCH ×3 (10:13→20:33)
[2019-12-03] MEDS: levETIRAcetam 250MG TABLET (KEPPRA) PO SCH ×2 (10:13→20:33)
[2019-12-03] MEDS: amLODIPine 5 MG TAB PO SCH ×2 (10:13→20:34)
[2019-12-03] MEDS: traMADol 50 MG TAB PO PRN ×2 (13:23→21:47)
[2019-12-03] MEDS ORDERED: ENTER DRUG NAME HERE (PATIENT'S OWN MED) PO SCH (14:30)
[2019-12-03] MEDS: ASPIRIN 81 MG ENTERIC TAB PO SCH (20:32)
[2019-12-03] MEDS: RAMELTEON 8 MG TAB (ROZEREM) PO SCH (20:32)
[2019-12-03] MEDS: QUEtiapine FUMARATE 25 MG TAB PO SCH (20:33)
[2019-12-03] MEDS: DONEPEZIL 5 MG TAB PO SCH (20:33)
[2019-12-03] MEDS: CitaloPRAM (CeleXA) 20 MG TAB PO SCH (20:33)
[2019-12-04 06:00] VITALS: BP 134/69
[2019-12-04] MEDS: traMADol 50 MG TAB PO PRN ×2 (06:09→16:19)
[2019-12-04] MEDS: MIRALAX *UNIT DOSE* 17GM PACKET PO SCH (10:43)
[2019-12-04] MEDS: HEPARIN SOD (PORCINE) 5000 UNITS/ML VIAL (J1644 PER 1000UNITS) SQ SCH ×2 (10:43→20:25)
[2019-12-04] MEDS: levETIRAcetam 250MG TABLET (KEPPRA) PO SCH ×2 (10:43→20:22)
[2019-12-04] MEDS: FUROSEMIDE 20 MG TAB PO SCH (10:43)
[2019-12-04] MEDS: GABAPENTIN 300 MG CAP PO SCH ×3 (10:44→20:22)
[2019-12-04] MEDS: amLODIPine 5 MG TAB PO SCH ×2 (10:44→20:25)
[2019-12-04] MEDS: busPIRone 10 MG TAB PO SCH ×3 (10:44→20:25)
[2019-12-04] MEDS: DONEPEZIL 5 MG TAB PO SCH (20:22)
[2019-12-04] MEDS: RAMELTEON 8 MG TAB (ROZEREM) PO SCH (20:22)
[2019-12-04] MEDS: ASPIRIN 81 MG ENTERIC TAB PO SCH (20:22)
[2019-12-04] MEDS: QUEtiapine FUMARATE 25 MG TAB PO SCH (20:22)
[2019-12-04] MEDS: CitaloPRAM (CeleXA) 20 MG TAB PO SCH (20:22)
[2019-12-05 06:00] VITALS: BP 135/72
[2019-12-05] MEDS: MIRALAX *UNIT DOSE* 17GM PACKET PO SCH (09:37)
[2019-12-05] MEDS: levETIRAcetam 250MG TABLET (KEPPRA) PO SCH ×2 (09:37→20:43)
[2019-12-05] MEDS: GABAPENTIN 300 MG CAP PO SCH ×3 (09:37→20:43)
[2019-12-05] MEDS: amLODIPine 5 MG TAB PO SCH ×2 (09:37→20:44)
[2019-12-05] MEDS: HEPARIN SOD (PORCINE) 5000 UNITS/ML VIAL (J1644 PER 1000UNITS) SQ SCH ×2 (09:37→20:43)
[2019-12-05] MEDS: busPIRone 10 MG TAB PO SCH ×3 (09:37→20:43)
[2019-12-05] MEDS: FUROSEMIDE 20 MG TAB PO SCH (09:37)
[2019-12-05] MEDS: traMADol 50 MG TAB PO PRN (14:01)
[2019-12-05] MEDS ORDERED: PEG1POW PO (17:40)
[2019-12-05] MEDS ORDERED: AMLO5TAB6 PO (17:40)
[2019-12-05] MEDS ORDERED: RAME8TAB2 PO (17:40)
[2019-12-05] MEDS ORDERED: FURO20TA2 PO (17:40)
[2019-12-05] MEDS ORDERED: ACET1TAB55 PO (17:40)
[2019-12-05] MEDS ORDERED: CALC200T15 PO (17:40)
[2019-12-05] MEDS ORDERED: KEPP250T5 PO (17:44)
[2019-12-05] MEDS ORDERED: ASPI81TAEC PO (17:44)
[2019-12-05] MEDS ORDERED: CELE20TA PO (17:44)
[2019-12-05] MEDS ORDERED: BUSP10TA PO (17:44)
[2019-12-05] MEDS ORDERED: ONDA-83 PO (17:44)
[2019-12-05] MEDS ORDERED: GABA-843 PO (17:44)
[2019-12-05] MEDS ORDERED: QUET1TAB7 PO (17:44)
[2019-12-05] MEDS ORDERED: ARIC1TAB PO (17:44)
[2019-12-05] MEDS ORDERED: ALEN70TA74 PO (17:46)
[2019-12-05] MEDS: CitaloPRAM (CeleXA) 20 MG TAB PO SCH (20:42)
[2019-12-05] MEDS: DONEPEZIL 5 MG TAB PO SCH (20:43)
[2019-12-05] MEDS: QUEtiapine FUMARATE 25 MG TAB PO SCH (20:43)
[2019-12-05] MEDS: RAMELTEON 8 MG TAB (ROZEREM) PO SCH (20:43)
[2019-12-05] MEDS: ASPIRIN 81 MG ENTERIC TAB PO SCH (20:43)
[2019-12-06 06:00] VITALS: BP 144/80
[2019-12-06] MEDS: busPIRone 10 MG TAB PO SCH ×3 (08:42→21:07)
[2019-12-06] MEDS: FUROSEMIDE 20 MG TAB PO SCH (08:42)
[2019-12-06] MEDS: levETIRAcetam 250MG TABLET (KEPPRA) PO SCH ×2 (08:42→21:07)
[2019-12-06] MEDS: HEPARIN SOD (PORCINE) 5000 UNITS/ML VIAL (J1644 PER 1000UNITS) SQ SCH ×2 (08:42→21:08)
[2019-12-06] MEDS: GABAPENTIN 300 MG CAP PO SCH ×3 (08:42→21:07)
[2019-12-06] MEDS: MIRALAX *UNIT DOSE* 17GM PACKET PO SCH (08:43)
[2019-12-06] MEDS: amLODIPine 5 MG TAB PO SCH ×2 (08:43→21:08)
[2019-12-06] MEDS: traMADol 50 MG TAB PO PRN (14:44)
[2019-12-06] MEDS: CitaloPRAM (CeleXA) 20 MG TAB PO SCH (21:07)
[2019-12-06] MEDS: RAMELTEON 8 MG TAB (ROZEREM) PO SCH (21:07)
[2019-12-06] MEDS: ASPIRIN 81 MG ENTERIC TAB PO SCH (21:07)
[2019-12-06] MEDS: QUEtiapine FUMARATE 25 MG TAB PO SCH (21:07)
[2019-12-06] MEDS: DONEPEZIL 5 MG TAB PO SCH (21:08)
[2019-12-07 06:00] VITALS: BP 119/76
[2019-12-07] MEDS: busPIRone 10 MG TAB PO SCH ×3 (08:50→20:28)
[2019-12-07] MEDS: levETIRAcetam 250MG TABLET (KEPPRA) PO SCH ×2 (08:50→20:27)
[2019-12-07] MEDS: GABAPENTIN 300 MG CAP PO SCH ×3 (08:50→20:27)
[2019-12-07] MEDS: traMADol 50 MG TAB PO PRN (08:50)
[2019-12-07] MEDS: amLODIPine 5 MG TAB PO SCH ×2 (08:50→20:28)
[2019-12-07] MEDS: HEPARIN SOD (PORCINE) 5000 UNITS/ML VIAL (J1644 PER 1000UNITS) SQ SCH ×2 (08:51→20:29)
[2019-12-07] MEDS: MIRALAX *UNIT DOSE* 17GM PACKET PO SCH (08:51)
[2019-12-07] MEDS: FUROSEMIDE 20 MG TAB PO SCH (08:51)
[2019-12-07 14:00] VITALS: BP 144/79
[2019-12-07] MEDS: ASPIRIN 81 MG ENTERIC TAB PO SCH (20:27)
[2019-12-07] MEDS: RAMELTEON 8 MG TAB (ROZEREM) PO SCH (20:28)
[2019-12-07] MEDS: CitaloPRAM (CeleXA) 20 MG TAB PO SCH (20:28)
[2019-12-07] MEDS: DONEPEZIL 5 MG TAB PO SCH (20:28)
[2019-12-07] MEDS: QUEtiapine FUMARATE 25 MG TAB PO SCH (20:28)
[2019-12-07] MEDS: CALCIUM CARBONATE 500 MG CHEW U/D PO PRN (20:33)
[2019-12-08 06:00] VITALS: BP 120/78
[2019-12-08] MEDS: amLODIPine 5 MG TAB PO SCH ×2 (09:00→20:45)
[2019-12-08] MEDS: HEPARIN SOD (PORCINE) 5000 UNITS/ML VIAL (J1644 PER 1000UNITS) SQ SCH ×2 (09:22→20:45)
[2019-12-08] MEDS: MIRALAX *UNIT DOSE* 17GM PACKET PO SCH (09:22)
[2019-12-08] MEDS: FUROSEMIDE 20 MG TAB PO SCH (09:23)
[2019-12-08] MEDS: busPIRone 10 MG TAB PO SCH ×3 (09:23→20:44)
[2019-12-08] MEDS: levETIRAcetam 250MG TABLET (KEPPRA) PO SCH ×2 (09:23→20:43)
[2019-12-08] MEDS: GABAPENTIN 300 MG CAP PO SCH ×3 (09:23→20:44)
[2019-12-08] MEDS: traMADol 50 MG TAB PO PRN ×2 (09:29→20:46)
[2019-12-08] MEDS: ASPIRIN 81 MG ENTERIC TAB PO SCH (20:43)
[2019-12-08] MEDS: DONEPEZIL 5 MG TAB PO SCH (20:44)
[2019-12-08] MEDS: QUEtiapine FUMARATE 25 MG TAB PO SCH (20:44)
[2019-12-08] MEDS: CitaloPRAM (CeleXA) 20 MG TAB PO SCH (20:44)
[2019-12-08] MEDS: RAMELTEON 8 MG TAB (ROZEREM) PO SCH (20:45)
[2019-12-09 06:00] VITALS: BP 118/61
[2019-12-09] MEDS: MIRALAX *UNIT DOSE* 17GM PACKET PO SCH (09:01)
[2019-12-09] MEDS: amLODIPine 5 MG TAB PO SCH ×2 (09:01→20:59)
[2019-12-09] MEDS: HEPARIN SOD (PORCINE) 5000 UNITS/ML VIAL (J1644 PER 1000UNITS) SQ SCH ×2 (09:02→21:00)
[2019-12-09] MEDS: levETIRAcetam 250MG TABLET (KEPPRA) PO SCH ×2 (09:02→20:59)
[2019-12-09] MEDS: busPIRone 10 MG TAB PO SCH ×3 (09:02→20:59)
[2019-12-09] MEDS: GABAPENTIN 300 MG CAP PO SCH ×3 (09:02→20:59)
[2019-12-09] MEDS: FUROSEMIDE 20 MG TAB PO SCH (09:02)
[2019-12-09] MEDS: traMADol 50 MG TAB PO PRN ×2 (09:03→17:33)
[2019-12-09] MEDS: ACETAMINOPHEN TAB 650MG DOSE (2X325MG) PO PRN (15:00)
[2019-12-09] MEDS: CALCIUM CARBONATE 500 MG CHEW U/D PO PRN (15:03)
[2019-12-09] MEDS: CitaloPRAM (CeleXA) 20 MG TAB PO SCH (20:59)
[2019-12-09] MEDS: DONEPEZIL 5 MG TAB PO SCH (20:59)
[2019-12-09] MEDS: RAMELTEON 8 MG TAB (ROZEREM) PO SCH (20:59)
[2019-12-09] MEDS: QUEtiapine FUMARATE 25 MG TAB PO SCH (20:59)
[2019-12-09] MEDS: ASPIRIN 81 MG ENTERIC TAB PO SCH (20:59)
[2019-12-10 06:00] VITALS: BP 132/68
[2019-12-10] MEDS: amLODIPine 5 MG TAB PO SCH ×2 (09:00→20:59)
[2019-12-10 09:04] VITALS: BP 127/69
[2019-12-10] MEDS: MIRALAX *UNIT DOSE* 17GM PACKET PO SCH (09:04)
[2019-12-10] MEDS: FUROSEMIDE 20 MG TAB PO SCH (09:05)
[2019-12-10] MEDS: HEPARIN SOD (PORCINE) 5000 UNITS/ML VIAL (J1644 PER 1000UNITS) SQ SCH ×2 (09:05→20:56)
[2019-12-10] MEDS: GABAPENTIN 300 MG CAP PO SCH ×3 (09:05→20:56)
[2019-12-10] MEDS: busPIRone 10 MG TAB PO SCH ×3 (09:05→20:57)
[2019-12-10] MEDS: levETIRAcetam 250MG TABLET (KEPPRA) PO SCH ×2 (09:05→20:56)
[2019-12-10] MEDS: traMADol 50 MG TAB PO PRN ×2 (09:06→20:57)
[2019-12-10] MEDS: ACETAMINOPHEN TAB 650MG DOSE (2X325MG) PO PRN (16:32)
[2019-12-10] MEDS: QUEtiapine FUMARATE 25 MG TAB PO SCH (20:57)
[2019-12-10] MEDS: DONEPEZIL 5 MG TAB PO SCH (20:57)
[2019-12-10] MEDS: ASPIRIN 81 MG ENTERIC TAB PO SCH (20:57)
[2019-12-10] MEDS: CitaloPRAM (CeleXA) 20 MG TAB PO SCH (20:57)
[2019-12-10] MEDS: RAMELTEON 8 MG TAB (ROZEREM) PO SCH (20:57)
[2019-12-11 06:00] VITALS: BP 124/68
[2019-12-11] MEDS ORDERED: ONDA-83 PO (08:55)
[2019-12-11] MEDS ORDERED: ARIC1TAB PO (08:55)
[2019-12-11] MEDS ORDERED: AMLO5TAB6 PO (08:55)
[2019-12-11] MEDS ORDERED: QUET1TAB7 PO (08:55)
[2019-12-11] MEDS ORDERED: GABA-843 PO (08:55)
[2019-12-11] MEDS ORDERED: RAME8TAB2 PO (08:55)
[2019-12-11] MEDS ORDERED: CELE20TA PO (08:55)
[2019-12-11] MEDS ORDERED: CALC200T15 PO (08:55)
[2019-12-11] MEDS ORDERED: FURO20TA2 PO (08:55)
[2019-12-11] MEDS ORDERED: KEPP250T5 PO (08:55)
[2019-12-11] MEDS ORDERED: ASPI81TAEC PO (08:55)
[2019-12-11] MEDS ORDERED: BUSP10TA PO (08:55)
[2019-12-11] MEDS ORDERED: PEG1POW PO (08:55)
[2019-12-11] MEDS ORDERED: TRAM50TA2 PO ×5 (08:55→10:00)
[2019-12-11 09:00] VITALS: BP 123/66
[2019-12-11] MEDS: amLODIPine 5 MG TAB PO SCH (09:00)
[2019-12-11] MEDS: GABAPENTIN 300 MG CAP PO SCH (09:49)
[2019-12-11] MEDS: traMADol 50 MG TAB PO PRN (09:49)
[2019-12-11] MEDS: FUROSEMIDE 20 MG TAB PO SCH (09:49)
[2019-12-11] MEDS: HEPARIN SOD (PORCINE) 5000 UNITS/ML VIAL (J1644 PER 1000UNITS) SQ SCH (09:49)
[2019-12-11] MEDS: busPIRone 10 MG TAB PO SCH (09:49)
[2019-12-11] MEDS: levETIRAcetam 250MG TABLET (KEPPRA) PO SCH (09:49)
[2019-12-11] MEDS: MIRALAX *UNIT DOSE* 17GM PACKET PO SCH (09:49)
[2019-12-11] MEDS ORDERED: NORV5TAB PO (09:51)
== END 2019-12-11 12:10 | DRG 884 ==
LOC: EDBD 11:42 → M ED 11:42 → M ED INP 13:59 → ENRESERVDT 14:18 → ENRESERVTM 14:18 → M MSPAV 15:33
PROVIDERS: ADMIT General Practice; ATTEND General Practice
DX: F03.91 Unspecified dementia, unspecified severity, with behavioral disturbance (principal); R62.7 Adult failure to thrive; B02.9 Zoster without complications; G40.909 Epilepsy, unspecified, not intractable, without status epilepticus; I10 Essential (primary) hypertension; F41.9 Anxiety disorder, unspecified; F32.9 Major depressive disorder, single episode, unspecified; Z79.82 Long term (current) use of aspirin; Z79.899 Other long term (current) drug therapy; Z88.8 Allergy status to other drugs, medicaments and biological substances; E55.9 Vitamin D deficiency, unspecified

== ENCOUNTER → 2021-04-29 | Outpatient (CLI) | payer MEDICARE ==
[~2021-04-29] MED LIST changes: -ALEN70TA74 PO; +ALEN70TA82 PO; +AMLO1TAB24 PO; -AMLO5TAB6 PO; +ASPI-569 PO; -ASPI81TA85 PO; +ASPI81TA86 PO; +CALC1TAB42 PO; +CALC200T15 PO; +ERGO500029 PO; +FURO20TA2 PO; +GABA-282 PO; -GABA-843 PO; +MEMA1TAB3 PO; +NORV5TAB PO; +POLY17PO18 PO; -QUET1TAB7; -QUET1TAB7 PO; +QUET25TA3; +QUET25TA3 PO; +RAME8TAB2 PO; -VITA50005 PO
--- NOTE | 2021-04-29 15:42 | RADONC.CN ---
Radiation Oncology Hx/Consult Radiation Oncology Consult Date of Service: Apr 29, 2021 Pt Identifier Mariya Gomez is a 86 year old female with dementia and a history of high grade T1 urothelial cancer, as well as a left ureteral mass. She is seen today after declining to pursue left nephrectomy and ureterectomy for this problem, for consideration of palliative RT. Diagnosis/Treatment History Oncologic History Lives at [facility] in [place]. January 2021 developed gross hematuria and underwent cystoscopy/TURBT with Dr. Urbano on 01/31/21. Pathology showed high grade T1 urothelial carcinoma. No muscle invasion. Tumor was 2 cm in greatest extent. Mitomycin C instillation was conducted. Patient then underwent repeat cystoscopy and pyelogram which showed an obstructing mass in the left ureter, a stent was placed. She saw Dr. Sethi @ [facility] who offered left robotic nephrectomy and left ureterectomy. Given the magnitude, she declined the operation (Daughter HCP had say in this as well). She saw Dr. rUban for consideration of chemotherapy on 04/25/21, she was deemed too frail. Interval History Here with caregiver Sushma today. Reports she has no pain to speak of. She states and Sushma agrees that she has no gross hematuria or pain with urination. She is infrequently incontinent of urine. She is oriented to self and place but not date/time. Past Medical History: Dementia HTN COPD Osteoporosis Past Surgical History: Cholecystectomy Family History: N/A patient unable to provide Social History: N/A patient unable to provide Allergies / Meds Allergies: Coded Allergies: ciprofloxacin (Verified Allergy, Unknown, 10/26/19) tamsulosin (Verified Allergy, Unknown, 10/26/19) Home Meds Active Scripts Tramadol HCl (Tramadol HCl) 50 Mg Tablet, 50 MG PO BID MDD 2 for 7 Days, #14 TAB Prov:TONIE GARRETT MD 12/11/19 Ramelteon (Ramelteon) 8 Mg Tablet, 8 MG PO QHS for 30 Days, #30 TAB Prov:TONIE GARRETT MD 12/11/19 Quetiapine Fumarate (Quetiapine Fumarate) 25 Mg Tablet, 25 MG PO QHS for 30 Days, #30 TAB Prov:TONIE GARRETT MD 12/11/19 Polyethylene Glycol 3350 (Polyethylene Glycol 3350) 17 Gm Powd.pack, 1 PKT PO DAILY for 30 Days, #30 TAB Prov:TONIE GARRETT MD 12/11/19 Levetiracetam (Keppra) 250 Mg Tablet, 750 MG PO BID for 30 Days, #60 TAB Prov:TONIE GARRETT MD 12/11/19 Gabapentin (Gabapentin) 300 Mg Capsule, 300 MG PO TID for 30 Days, #90 CAP Prov:TONIE GARRETT MD 12/11/19 Furosemide (Furosemide) 20 Mg Tablet, 20 MG PO DAILY for 30 Days, #30 TAB Prov:TONIE GARRETT MD 12/11/19 Donepezil HCl (Aricept) 5 Mg Tablet, 5 MG PO QHS for 30 Days, #30 TAB Prov:TONIE GARRETT MD 12/11/19 Citalopram Hydrobromide (Celexa) 20 Mg Tablet, 40 MG PO QHS for 30 Days, #30 TAB Prov:TONIE GARRETT MD 12/11/19 Buspirone HCl (Buspirone HCl) 10 Mg Tablet, 10 MG PO TID for 30 Days, #90 TAB Prov:TONIE GARRETT MD 12/11/19 Aspirin (Aspirin EC) 81 Mg Tablet.dr, 81 MG PO QHS for 30 Days, #30 TAB Prov:TONIE GARRETT MD 12/11/19 Reported Medications Calcium Carbonate/Vitamin D3 (Calcium 500-Vit D3 600 Tablet) 1 Each Tablet, 1 TAB PO BID for 30 Days, #60 TAB 04/25/21 Memantine HCl (Memantine HCl) 5 Mg Tablet, 5 MG PO DAILY, TAB 04/25/21 Discontinued Scripts Amlodipine Besylate (Norvasc) 5 Mg Tablet, 5 MG PO DAILY for 30 Days, #30 TAB Prov:TONIE GARRETT MD 12/11/19 Review of Systems General: Reports: ROS Unobtainable (Dementia) Vital Signs Ht 64" Wt 156 lbs T 97 P 77 RR 18 BP 103/77 O2 99% Pain 0 Fatigue 0 General Exam: Positive: Alert, Cooperative; Negative: No Acute Distress, Oriented Times Three Eye Exam: Positive: PERRLA, EOMI ENT EXAM: Positive: Atraumatic Neck Exam: Positive: Supple Chest Exam: Positive: Clear to auscultation Heart Exam: Positive: Rate Normal Abdomen Exam: Positive: Soft; Negative: Mass Extremity Exam: Positive: Edema (1+ to knee) Neuro Exam: Positive: Normal Gait, Normal Speech, Cranial Nerves 3-12 NL Psych Exam: Positive: Mood NL Diagnostic and Laboratory Diagnostic Review Radiologic images, relevant labs and pathology reports were personally reviewed and discussed with Ms. Gomez. Assessment and Plan Impression Ms. Gomez is a 86 year old female with a history of dementia and a history of high grade T1 urothelial cancer, as well as a left ureteral mass. She is seen today after declining to pursue left nephrectomy and ureterectomy for this prob shirley, for consideration of palliative RT. 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 Gomez regarding the diagnosis at hand and available therapeutic options. I reviewed her imaging to date, consisting of abdomen and pelvis CT from 01/22. On this study there is suggestion of as mass in the mid-left ureter at the level of L5-S1 proximal to which there is more significant hydroureter. I don't appreciate any discernible filling defect in the bladder on this study, which admittedly is older and predated her cystoscopy and stent placement in January 2021. There is report of a pyelogram which would be helpful, unfortunately we attempted to acquire images from [place], but these were unavailable. She is not currently symptomatic with hematuria at this time. She also denies any pain and seems to be tolerating her stent well. I explained that the utility of RT in this situation is for palliating symptoms and has no bearing on disease control with involvement of the upper tract. I would reserve using RT unless she developed additional gross hematuria, and/or bladder outlet obstruction or further ureteral obstruction. In case of these contingencies a short course of RT would be appropriate to consider and could be completed with minimal side effect risk. With regard to her current situation I think she would be best served by continued urological follow up with Dr. Urbano. She could be referred back to me if needed. Mariya seemed pleased to hear this recommendation, we both agreed to leave well-enough alone. After discussing the risks, benefits and alternatives to radiation therapy, Ms. Gomez was amenable to foregoing RT at this time. All questions were answered to the patient's satisfaction. We instructed the patient that if there were any questions,concerns or changes in clinical status in the interim to contact us. Recommendations No indication for palliative RT at this time Would reserve RT for palliation of active bleeding or worsening obstruction Can follow up as needed for now and be re-referred if need arises Billing Statement Total time of [35] minutes was spent preparing for the visit [2], obtaining HPI [4], examining the patient [3], reviewing diagnostic tests [6], discussing management options [9], coordinating care [1], and writing this note [10]. GREG BAI MD Apr 29, 2021 14:31
== END ==
LOC: M ONCR 10:38
PROVIDERS: ATTEND General Practice
DX: C67.9 Malignant neoplasm of bladder, unspecified (principal); F03.90 Unspecified dementia, unspecified severity, without behavioral disturbance, psychotic disturbance, mood disturbance, and anxiety; I10 Essential (primary) hypertension; J44.9 Chronic obstructive pulmonary disease, unspecified; M81.0 Age-related osteoporosis without current pathological fracture; N13.4 Hydroureter; N28.89 Other specified disorders of kidney and ureter; Z79.82 Long term (current) use of aspirin; Z79.899 Other long term (current) drug therapy; Z88.1 Allergy status to other antibiotic agents

== ENCOUNTER 2021-07-02 09:45 | Emergency (ER) | payer MEDICARE ==
[~2021-07-02] VITALS: Ht 165.1 cm; Wt 63.9 kg
[~2021-07-02 09:45] MED LIST changes: +QUET1TAB17; +QUET1TAB17 PO; -QUET25TA3; -QUET25TA3 PO
[2021-07-02 10:46] LABS: BASO % 0.4 % (0.0-1.0); EOS # 0.1 10^3/uL (0.0-0.5); EOS % 1.4 % (0.0-3.0); HEMATOCRIT 37.4 % (36.0-47.0); HEMOGLOBIN 11.8 g/dl (12.0-15.5); LYMPH # 1.3 10^3/uL (1.5-5.0); LYMPH % 26.1 % (24.0-44.0); MEAN CORPUSCULAR HGB CONC 31.6 g/dl (32.0-36.5); MEAN CORPUSCULAR VOLUME 95.2 fl (80.0-96.0); MONO # 0.5 10^3/uL (0.0-0.8); MONO % 9.6 % (2.0-8.0); NEUTROPHILS # 3.1 10^3/uL (1.5-8.5); NEUTROPHILS % 62.3 % (36.0-66.0); PLATELET COUNT, AUTOMATED 243 10^3/uL (150-450); RED BLOOD COUNT 3.93 10^6/uL (4.00-5.40); WHITE BLOOD COUNT 4.9 10^3/uL (4.0-10.0)
[2021-07-02 10:55] LABS: INR 1.01; PROTHROMBIN TIME 13.7 SECONDS (12.7-14.5)
[2021-07-02 10:56] LABS: PARTIAL THROMBOPLASTIN TIME 24.2 SECONDS (25.9-37.0)
[2021-07-02] MEDS ORDERED: ISOVUE-370 76% 100ML VIAL As Ordered ONE (11:04)
[2021-07-02 11:11] LABS: ALT/SGPT 19 U/L (12-78); BILIRUBIN,DIRECT 0.1 MG/DL (0.0-0.2); BILIRUBIN,TOTAL 0.4 MG/DL (0.2-1.0); CK-MB VALUE MASS < 1.0 NG/ML (<3.6); CPK CREATINE PHOSPHOKINASE 76 U/L (26-192); MB/CK RELATIVE INDEX 1.32 (< OR =4); TOTAL PROTEIN 7.4 GM/DL (6.4-8.2); TROPONIN I < 0.02 NG/ML (< 0.10)
--- NOTE | 2021-07-02 11:32 | REPVR ---
PROCEDURE INFORMATION: Exam: CT Head Without Contrast Exam date and time: 07/02/2021 11:04 AM Age: 86 years old Clinical indication: Injury or trauma; Fall; Blunt trauma (contusions or hematomas); Additional info: Right flank pain post fall TECHNIQUE: Imaging protocol: Computed tomography of the head without contrast. Radiation optimization: All CT scans at this facility use at least one of these dose optimization techniques: automated exposure control; mA and/or kV adjustment per patient size (includes targeted exams where dose is matched to clinical indication); or iterative reconstruction. COMPARISON: CT Head without contrast 10/26/2019 8:32 PM FINDINGS: Brain: There is a tiny left anterior parafalcine subdural hematoma measuring up to 3 mm in thickness. There is no associated mass effect or shift of midline structures. Moderate diffuse volume loss is within the range of normal for patient age. There are small vessel ischemic changes within the periventricular and subcortical white matter. Cerebral ventricles: No ventriculomegaly. Paranasal sinuses: Visualized sinuses are unremarkable. No fluid levels. Mastoid air cells: Visualized mastoid air cells are well aerated. Bones/joints: Unremarkable. No acute fracture. Soft tissues: Unremarkable. IMPRESSION: Tiny left anterior parafalcine subdural hematoma. Electronically signed by: Afia Mendiola On 07/02/2021 11:31:45 AM
--- NOTE | 2021-07-02 11:38 | REP ---
INDICATION: fall right hip pain. COMPARISON: Radiographs today. TECHNIQUE: Axial CT right hip performed with sagittal and coronal reconstruction images. FINDINGS: There is no acute fracture or dislocation. There is moderate joint space narrowing, subchondral sclerosis and spurring. The surrounding soft tissue structures are unremarkable. IMPRESSION: Moderate degenerative changes of the right hip joint. No evidence of acute fracture or dislocation. <Electronically signed by Bob Gayle > 07/02/21 [id number]
--- NOTE | 2021-07-02 11:39 | REP ---
INDICATION: fall rightbip pain. COMPARISON: Comparison pelvic radiograph September 27, 2017. TECHNIQUE: AP view of the pelvis. FINDINGS: There is diffuse osteopenia. Osteoarthritic spurring is seen at the right hip articulation. There is an os acetabuli E. there is no evidence of hip or pelvic fracture. No sacral fracture is seen. There is a left ureteral stent noted in place in the left side of the pelvis. Vascular calcification is observed. Visualized bowel gas pattern is unremarkable. IMPRESSION: Diffuse osteopenia. Right hip osteoarthritis. No fracture seen. Left ureteral stent. <Electronically signed by Tobin Dumont > 07/02/21 [id number]
--- NOTE | 2021-07-02 11:39 | REP ---
INDICATION: fall rightbip pain. COMPARISON: 12/28/2016. TECHNIQUE: AP and frogleg right hip. FINDINGS: There is no evidence of acute fracture or dislocation. Moderate degenerative changes are seen at the hip joint, with joint space narrowing, subchondral sclerosis and spurring. IMPRESSION: Moderate degenerative changes. No acute fracture or dislocation. <Electronically signed by Bob Gayle > 07/02/21 [id number]
--- NOTE | 2021-07-02 11:40 | REP ---
INDICATION: fall rightbip pain COMPARISON: None. TECHNIQUE: AP and lateral right femur. FINDINGS: There is no evidence of acute fracture, dislocation, or intrinsic bone disease.There are moderate degenerative changes at the right hip joint. IMPRESSION: No fracture or dislocation. <Electronically signed by Bob Gayle > 07/02/21 [id number]
--- NOTE | 2021-07-02 11:40 | REP ---
INDICATION: fall rightbip pain. COMPARISON: Comparison chest x-ray October 26, 2019. TECHNIQUE: AP supine chest x-ray. Single-view. FINDINGS: The EKG monitoring electrodes and oxygen delivery tubing are seen. There is platelike atelectasis in the left base along the left diaphragm. There is no evidence of pneumothorax. No infiltrate is seen. Mediastinum is not widened. The aorta is calcific and somewhat tortuous. Heart size is borderline. Pulmonary vasculature is not increased. IMPRESSION: Platelike atelectasis left base. Borderline heart size. Otherwise no acute disease. <Electronically signed by Tobin Dumont > 07/02/21 [id number]
--- NOTE | 2021-07-02 11:56 | REPVR ---
PROCEDURE INFORMATION: Exam: CT Cervical Spine Without Contrast Exam date and time: 07/02/2021 11:04 AM Age: 86 years old Clinical indication: Injury or trauma; Fall; Blunt trauma; Additional info: Right flank pain post fall TECHNIQUE: Imaging protocol: Computed tomography images of the cervical spine without contrast. Radiation optimization: All CT scans at this facility use at least one of these dose optimization techniques: automated exposure control; mA and/or kV adjustment per patient size (includes targeted exams where dose is matched to clinical indication); or iterative reconstruction. COMPARISON: CT Spine,cervical w/o contrast 10/26/2019 8:32 PM FINDINGS: Bones/joints: No acute fracture. Normal alignment. Discs/Spinal canal/Neural foramina: There is moderate to severe intervertebral disc space loss at C5/6. There is multilevel facet hypertrophy. There is severe right-sided neural foraminal narrowing at C4/5 and C5/6. Lungs: Lung apices are normal. Soft tissues: Unremarkable. IMPRESSION: No acute findings. Electronically signed by: Afia Mendiola On 07/02/2021 11:55:43 AM
--- NOTE | 2021-07-02 12:00 | REP ---
INDICATION: right flank pain post fall COMPARISON: 01/22/2021 as well as other prior exams. TECHNIQUE: CT Scan of the abdomen and pelvis was performed with intravenous administration of 100 cc of Isovue 370, without oral contrast. Sagittal and coronal reconstruction images are performed. FINDINGS: Lung bases: There is a new 1.2 cm pleural base nodule in the region of the right middle lobe. There appear to be dependent atelectatic changes.. There is a small hiatal hernia. Liver: Normal Gallbladder: Prior cholecystectomy. Spleen: Normal. Adrenals: Normal. Pancreas: Normal. Kidneys: There is a left ureteral stent. Proximal end is coiled in the left pelvocaliceal system and the distal end is coiled in the urinary bladder. The left renal pelvis is dilated as seen on the recent CT of 01/22/2021. there appears to be an enhancing mass of the mid left ureter. Small and large bowel: There is sigmoid diverticulosis without acute diverticulitis. Free fluid: None. Abdominal aorta: No aneurysm or dissection. Adenopathy: None. Appendix: Not inflamed. Osseous structures: There is mild loss of height of the T12, L3 and L5 vertebral bodies unchanged.. Pelvis: No mass. A small amount of air is seen in the urinary bladder. IMPRESSION: There is a new 1.2 cm pleural based nodule in the right middle lobe anteriorly. Left ureteral stent appears to be in good position. Dilated left renal pelvis is unchanged since 01/22/2021. There appears to be an enhancing mass in the mid left ureter. No free air or free fluid. No visceral organ injury identified. No acute fracture of the visualized osseous structures. <Electronically signed by Bob Gayle > 07/02/21 [id number]
--- NOTE | 2021-07-02 12:15 | REP ---
INDICATION: right flank pain post fall. COMPARISON: 08/01/2013. TECHNIQUE: CT chest performed following the intravenous administration of 100 cc of Isovue 370. Sagittal and coronal reconstruction images are performed. FINDINGS: Lungs: There appears to be dependent atelectatic change in the lung bases bilaterally, left greater than right. There is a new pleural base nodule anteriorly on the right in the region of the middle lobe measuring approximately 1.2 cm in diameter. More superiorly in the right lung there are 12 other subcentimeter nodules identified. In the left upper lobe a pleural based nodule anteriorly measures about 7 mm. There is another subcentimeter, 3 mm nodule more inferiorly in the left upper lobe. Mediastinum: No adenopathy. Latoya: No adenopathy. Axilla: No adenopathy. Pleura: No effusion. Heart: Not enlarged. Thoracic aorta: No aneurysm or dissection. Visualized osseous structures: There are nondisplaced right 6th through 8th rib fractures posteriorly.. IMPRESSION: There appears to be bibasilar dependent atelectatic change. There are multiple pulmonary nodules present suspicious for metastatic disease. No pneumothorax or pleural effusion. Nondisplaced fractures are noted of the right 6th through 8th ribs. <Electronically signed by Bob Gayle > 07/02/21 [id number]
[2021-07-02] MEDS ORDERED: NS 1,000 ML IV ONE (13:00)
[2021-07-02] MEDS ORDERED: PERCOCET 5MG/325MG TAB PO ONE (13:35)
[2021-07-02 13:42] VITALS: BP 166/79
[2021-07-02 14:23] LABS: RSV AMPLIFICATION NEGATIVE (NEGATIVE)
--- NOTE | 2021-07-02 19:34 | ECGEPIP ---
[facility] - ED Test Date: 2021-07-02 Pat Name: ADIN CONCEPCION Department: Room: - Gender: Female [employer]: EVANGELISTA : 1935 Requested By: Luisa Culp Order Number: [id number] Reading MD: Luisa Culp Measurements Intervals [place] Rate: 72 P: 86 NC: 210 QRS: -27 QRSD: 112 T: 57 QT: 456 QTc: 499 Interpretive Statements Sinus rhythm with 1st degree AV block Minimal voltage criteria for LVH, may be normal variant ( [place] product ) Anterior infarct , age undetermined Nonspecific ST T wave changes cw 10/26/[address] T wave changes Electronically Signed on 07-02-2021 19:34:48 EDT by Luisa Culp
--- NOTE | 2021-07-03 10:54 | ED PDOC ---
Post-Departure Follow-Up radiology report faxed to wilma Rodriguez Sarah MD Jul 03, 2021 10:54
== END 2021-07-02 13:45 | disposition short-term general hospital (02) ==
LOC: EDBD 09:45 → M ED 09:45
DX: S70.01XA Contusion of right hip, initial encounter (principal); S22.41XA Multiple fractures of ribs, right side, initial encounter for closed fracture; S06.5X0A Traumatic subdural hemorrhage without loss of consciousness, initial encounter; W07.XXXA Fall from chair, initial encounter; Y92.9 Unspecified place or not applicable; Y99.9 Unspecified external cause status; Y93.9 Activity, unspecified; R91.8 Other nonspecific abnormal finding of lung field; R94.31 Abnormal electrocardiogram [ECG] [EKG]; K57.30 Diverticulosis of large intestine without perforation or abscess without bleeding; N28.89 Other specified disorders of kidney and ureter; M16.11 Unilateral primary osteoarthritis, right hip; M85.851 Other specified disorders of bone density and structure, right thigh; Z96.0 Presence of urogenital implants; F03.91 Unspecified dementia, unspecified severity, with behavioral disturbance; G40.909 Epilepsy, unspecified, not intractable, without status epilepticus; F41.9 Anxiety disorder, unspecified; F32.9 Major depressive disorder, single episode, unspecified; Z88.1 Allergy status to other antibiotic agents; Z79.899 Other long term (current) drug therapy; Z79.82 Long term (current) use of aspirin
CPT/HCPCS: 36415; 70450; 71045; 71260; 72125; 72170; 73502; 73552; 73700; 74177; 80047; 80076; 80180; 82550; 82553; 83605; 84484; 85025; 85610; 85730; 86850; 86900; 86901; 87631; 93005; 99285; Q9967